=== PATIENT | female | born 1995 | race Caucasian/White ===

== ENCOUNTER 2020-09-13 20:23 | Emergency (ER) | payer MEDICARE, MEDICAID, SELFPAY ==
[2020-09-13 20:42] VITALS: BP 124/62; PULSE 92; RESP 16; TEMP 37.3; O2SAT 98; BMI 41.0
[2020-09-13 22:06] LABS: Glucose Urine UA NEG (NEG); Leukocyte Esterase Urine 2+ (NEG); Nitrite Urine NEG (NEG); Specific Gravity - Urine 1.025 (1.005-1.025); Urine Blood TRACE (NEG); Urine Ketones 15 MG/DL (NEG); Urine Protein NEG (NEG-TRACE)
--- NOTE | 2020-09-13 22:12 | ED_ITS ---
HPI - General Adult General Chief complaint: General Medical Stated complaint: VAGINAL PAIN Time Seen by Provider: 09/13/20 21:50 Source: patient Mode of arrival: ambulatory Limitations: no limitations History of Present Illness HPI narrative: patient comes in complaining of vaginal irritation for 4 days. Patient states approximately 5 days ago she had unprotected sex with a partner, he called her to let her know that he was having STD like symptoms and to get herself checked. Patient denies any vaginal discharge, no dysuria MD complaint: possible STD Related Data Previous Rx's Medication Instructions Recorded nitrofurantoin monohyd/m-cryst 100 mg PO Q12H 7 Days #14 cap 09/13/20 [Macrobid] Allergies Allergy/AdvReac Type Severity Reaction Status Date / Time lithium [LITHIUM] Allergy Intermediate HIVES Verified 09/13/20 20:42 nicotine [From NICODERM CQ] Allergy Unknown HIVES FROM Verified 09/13/20 20:42 THE PATCH Review of Systems Review of Systems: Constitutional : No Weight loss, No Fever, No Chills, No Night Sweats, No Fatigue, No Malaise ENT/Mouth : No Hearing loss, No Ear Pain, No Nasal Congestion, No Sinus Pain, No Hoarseness, No sore throat, No Rhinorrhea, No Swallowing Difficulty Eyes: No Eye Pain, No Swelling, No Redness, No Foreign Body, No Discharge, No Vision Changes Cardiovascular : No Chest Pain, No SOB, No Dyspnea on Exertion, No Orthopnea, No Edema, No Palpitations Respiratory : No Cough, No Sputum, No Wheezing, No Smoke Exposure, No Dyspnea Gastrointestinal : No Nausea, No Vomiting, No Diarrhea, No Constipation, No abdominal Pain, No Hematochezia, No Melena Genitourinary : no irregular bleeding, No Dysuria, No Urinary Frequency, No Hematuria, complaining of vaginal irritation/discomfort constantly, no vaginal discharge Musculoskeletal : No joint pain, No Myalgias, No Joint Swelling Skin : No Skin Lesions, No rash Neuro : No Weakness, No Numbness, No Paresthesias, No Loss of Consciousness, No Dizziness, No Headache Psych : No Anxiety/Panic, No Depression, No SI/HI/AH/VH, No Social Issues, Heme/Lymph: No Bruising, No Bleeding,No Lymphadenopathy Endocrine : No Polyuria, No Polydipsia, No Temperature Intolerance [facility] Past Medical History Medical History Anxiety Bipolar 1 disorder Depression Social History Social History Advance Directives: No Advance Directives Information Provided: Yes Physical Exam Vital Signs: Vital Signs: Last Vital Signs Temp 99.1 F 09/13/20 20:42 Pulse 92 09/13/20 20:42 Resp 16 09/13/20 20:42 BP 124/62 09/13/20 20:42 Pulse Ox 98 09/13/20 20:42 Body Mass Index 41.0 Appearance: Alert. Oriented X3. No acute distress. anxious, crying Eyes: Pupils equal, round and reactive to light. ENT: Pharynx normal. Neck: Normal inspection. Neck supple. No lymph nodes noted. No crepitus CVS: Normal heart rate and rhythm. Pulses normal. Normal S1 and S2 Respiratory: No respiratory distress. Breath sounds normal. No Wheezing. No rales Abdomen: Soft and nontender. No rigidity. No distention. good BS x4 Skin: Skin warm and dry. Normal skin color. Normal skin turgor. Extremities: No lower extremity edema. No lower extremity edema. No Lacerations. No Rash Neuro: Oriented X 3. No motor deficit. No sensory deficit. Moving all extermities. No slurred speech. Course Course Course Narrative: I discussed with the patient that she will be empirically treated for STDs, the urine will be sent for testing for gonorrhea and chlamydia. Patient instructed to follow-up with her primary care physician. Medical Decision Making Lab Data Labs: Lab Results 09/13/20 Range/Units 21:59 Urine Color YELLOW Urine Appearance HAZY Urine pH 7.0 (5.0-8.0) Ur Specific [place] 1.025 (1.005-1.025) Urine Protein NEG (NEG-TRACE) MG/DL Urine Glucose (UA) NEG (NEG) MG/DL Urine Ketones 15 (NEG) MG/DL Urine Blood TRACE (NEG) Urine Nitrite NEG (NEG) Ur Leukocyte Esterase 2+ H (NEG) Urine RBC 5-9 H (0) /HPF Urine WBC 50-75 H (0-4) /HPF Ur Squamous Epith Cells 1+ /LPF Urine Bacteria 2+ /LPF Urine Mucus 1+ /LPF Urine Test NEGATIVE (NEGATIVE) Discharge Plan Discharge Clinical Impression: Vaginal burning UTI (urinary tract infection) Qualifiers: Urinary tract infection type: site unspecified Hematuria presence: without hematuria Qualified Code(s): N39.0 - Urinary tract infection, site not specified Patient Disposition: Home, Self-Care Instructions: Sexually Transmitted Diseases (ED), Safe Sex Practices (ED) Additional Instructions: Please follow-up with your primary care physician tomorrow. If you have any worsening or new symptoms, please return to the emergency room or call 911 Prescriptions: New nitrofurantoin monohyd/m-cryst [Macrobid] 100 mg capsule 100 mg PO Q12H 7 Days Qty: 14 RF: 0
[2020-09-13 22:15] LABS: Appearance Urine HAZY; Color Urine YELLOW
[2020-09-13 22:16] LABS: Bacteria Urine 2+ /LPF; Mucus Urine 1+ /LPF; Squamous Epithelial Cell Urine 1+ /LPF; UPreg QC Valid YES; Urine Pregnancy NEGATIVE (NEGATIVE); WBC Urine 50-75 /HPF (0-4)
[2020-09-13] MEDS: Azithromycin 500 MG TABLET 1000 MG PO (22:40)
[2020-09-13] MEDS: Lidocaine HCl 1 % MPF 5 ML VIAL 0.9 ML INFILTRATI (22:41)
[2020-09-13] MEDS: cefTRIAXone sodium 250 MG VIAL IM (22:41)
[2020-09-14 01:47] LABS: CT PCR NOT DETECTED (Not Detect.); NG PCR DETECTED (Not Detect.)
== END 2020-09-13 22:58 | disposition home or self-care (01) ==
PROVIDERS: Emergency Provider Emergency Medicine
DX: N39.0 Urinary tract infection, site not specified (principal); Z20.2 Contact with and (suspected) exposure to infections with a predominantly sexual mode of transmission
CPT/HCPCS: 81001; 81025; 87086; 87491; 87591; 96372; 99284; J0696

== ENCOUNTER 2020-10-02 13:42 | Emergency (ER) | payer MEDICARE, MEDICAID, SELFPAY ==
[2020-10-02 13:53] VITALS: BP 119/53; PULSE 86; RESP 18; TEMP 37.1; O2SAT 97; BMI 43.0
[2020-10-02] MEDS: Lidocaine HCl 2 % MPF 5 ML VIAL INFILTRATI (14:08)
--- NOTE | 2020-10-02 14:16 | ED.SKABFB ---
HPI - Skin/Abscess/Foreign Bdy General Chief complaint: Skin/Abscess/Foreign Body Stated complaint: RED AREA ON LEFT ARM Time Seen by Provider: 10/02/20 13:56 Source: patient Mode of arrival: ambulatory Limitations: no limitations History of Present Illness HPI narrative: 25 y/o female presenting with painful lump in her left underarm for the last 3 days. She states it has been getting bigger and more painful. It is slightly red but has not had any drainage. She has history of an axillary abscess in the past that required drainage and took over 1 week to heal because she did not seek medical attention early. This time she wanted evaluation before it worsened. Denies fevers or chills. MD complaint: abscess/boil Onset (ago): day(s) (3) Tetanus up to date: yes Location: LUE Severity: moderate Quality: burning and aching Pain Consistency: constant Relieving factors: immobilization Exacerbating factors: palpation and movement Context: none Associated symptoms: denies other symptoms Treatments prior to arrival: none Related Data Previous Rx's Medication Instructions Recorded nitrofurantoin monohyd/m-cryst 100 mg PO Q12H 7 Days #14 cap 09/13/20 [Macrobid] Allergies Allergy/AdvReac Type Severity Reaction Status Date / Time lithium [LITHIUM] Allergy Intermediate HIVES Verified 09/13/20 20:42 nicotine [From NICODERM CQ] Allergy Unknown HIVES FROM Verified 09/13/20 20:42 THE PATCH Review of Systems Review of Systems: Constitutional: No Fever, No Chills Cardiovascular: No Chest Pain, No SOB Respiratory: No Cough, No Sputum Gastrointestinal: No Nausea, No Vomiting, No Diarrhea, No abdominal pain Musculoskeletal: No joint pain, No Myalgias Skin: + Skin Lesions, No rash Neuro: No Headache Heme/Lymph: No Lymphadenopathy PMFSH Past Medical History Attestation statement: The following information was validated with the patient. Medical History Anxiety Bipolar 1 disorder Depression Social History Social History Advance Directives: No Advance Directives Information Provided: No Physical Exam Vital Signs: Vital Signs: Last Vital Signs Temp 98.8 F 10/02/20 13:53 Pulse 86 10/02/20 13:53 Resp 18 10/02/20 13:53 BP 119/53 L 10/02/20 13:53 Pulse Ox 97 10/02/20 13:53 Body Mass Index 43.0 Appearance: Alert. Oriented X3. No acute distress. HEENT: normal inspection Respiratory: No respiratory distress. Skin: Skin warm and dry. Normal skin color. Normal skin turgor. No rashes. Extremities: left axillary area with 3 cm with tender area with fluctuation, mild erythema. Neuro: Oriented X 3. Course Course Course Narrative: 25. y/o female here with early axially abscess, no srrounding erythema. I&D performed. No hx DM. No role for abx at this time. Stable for d/c. Procedures Abscess I/D Site: lower extremity Side (if applicable): left Local Anesthetic: lidocaine 2% Technique: incised with blade Amount of fluid expressed (mL): 3 Sent for culture/gram staining?: No Irrigation: Yes Packing used?: none Complications: pain MDM - Skin/Abscess/Foreign Bdy Differential Diagnosis Differential diagnosis: Likely abscess of skin or subcutaneous tissue, urticaria, allergic reaction to drug, cellulitis, insect bites and contact dermatitis Critical Care Time Critical Care Time Critical Care Time: No Discharge Plan Discharge Clinical Impression: Abscess of skin or subcutaneous tissue Qualifiers: Site of cutaneous abscess: extremity Site of cutaneous abscess of extremity: axilla Laterality: left Qualified Code(s): L02.412 - Cutaneous abscess of left axilla Patient Disposition: Home, Self-Care Instructions: Abscess Incision and Drainage (DC) Additional Instructions: Use warm compresses to the area several times per day for the next 48 hours. Monitor for signs of infection including redness, warmth, worsening pain or increased drainage. Do not shave your underarm until your symptoms are completely resolved. Follow up with your doctor this week. Prescriptions: No Action nitrofurantoin monohyd/m-cryst [Macrobid] 100 mg capsule 100 mg PO Q12H 7 Days Qty: 14 RF: 0 Stand Alone Forms: Work/School Release
== END 2020-10-02 14:30 | disposition home or self-care (01) ==
PROVIDERS: Emergency Provider Internal Medicine
DX: L02.412 Cutaneous abscess of left axilla (principal); Z79.899 Other long term (current) drug therapy
CPT/HCPCS: 10060; 99283; 99284

== ENCOUNTER 2020-10-15 23:58 | Emergency (ER) | payer MEDICARE, MEDICAID, SELFPAY ==
[2020-10-15 23:59] VITALS: BP 93/59; PULSE 95; RESP 28; TEMP 37.2; O2SAT 100; BMI 41.0
--- NOTE | 2020-10-16 00:12 | ED.ABDPAIN ---
HPI - Abdominal Pain General Chief Complaint: Abdominal Pain Stated Complaint: RIGHT ABD PAIN Time Seen by Provider: 10/16/20 00:12 Source: patient Mode of arrival: ambulatory Limitations: no limitations History of Present Illness HPI narrative: This is a 25-year-old female who presents with 7 days constant, nonradiating, sharp pain at the right side of the abdomen without associated fevers, chills, diarrhea, but patient does complain of constipation and otherwise denies any urinary pain/burning/frequency. She has the Nexplanon in place and has not had a menstrual period in over 3 years. Related Data Previous Rx's Medication Instructions Recorded nitrofurantoin monohyd/m-cryst 100 mg PO Q12H 7 Days #14 cap 09/13/20 [Macrobid] Allergies Allergy/AdvReac Type Severity Reaction Status Date / Time lithium [LITHIUM] Allergy Intermediate HIVES Verified 09/13/20 20:42 nicotine [From NICODERM CQ] Allergy Unknown HIVES FROM Verified 09/13/20 20:42 THE PATCH Review of Systems Review of Systems Pertinent positives and negatives as stated in HPI and 10 point review systems is otherwise negative. Physical Exam Vital Signs: Vital Signs: Last Vital Signs Temp 98.9 F 10/15/20 23:59 Pulse 95 10/15/20 23:59 Resp 16 10/16/20 03:59 BP 93/59 L 10/15/20 23:59 Pulse Ox 100 10/15/20 23:59 Body Mass Index 41.0 VITAL SIGNS: Reviewed. GENERAL: Well developed, well nourished, in no acute distress. HEAD: Normocephalic/atraumatic, EYES: PERRLA, EOMI intact without pain, no nystagmus/pallor/icterus noted EARS: Ext canals without abnormality, TMs non-bulging and non-erythematous NOSE: Nares patent bilateral OROPHARYNX: no oral lesions noted, posterior pharynx clear and non-erythematous without noted tonsillar enlargement/erythema/exudates NECK: Supple, no adenopathy LUNGS: Normal breath sounds. No adventitious sounds or accessory muscle use. SpO2<100> CARDIOVASCULAR: Regular rate and rhythm without noted murmurs, no JVD or lower extremity edema. ABDOMEN: Soft, mild tenderness on palpation of the right abdomen without rebound, non-distended with bowel sounds. No rigidity. No guarding. No palpable masses or hernias noted MUSCULOSKELETAL: No tenderness, deformities, or effusions noted on gross inspection. EXTREMITIES: No cyanosis, clubbing or edema. SKIN: Inspection of the skin reveals no rashes, ulcerations, jaundice, pallor, or petechiae. NEUROLOGIC: Alert and oriented x 4. Strength and sensation to light touch were grossly intact x 4. Course Course Course Narrative: This is a 25-year-old female with history and clinical presentation most suggestive of possible constipation and on review all investigations there is no evidence of an acute infectious process, anemia, , gallbladder disease. KUB does indicate or evidence of mild constipation without supportive evidence for any SBO. All results and findings were discussed with the patient at bedside to include treatment regimen and she was recommended to follow-up with her primary care provider. MDM - Abdominal Pain Lab Data Result diagrams: 10/16/20 01:15 10/16/20 01:15 Labs: Lab Results 10/16/20 10/16/20 Range/Units 01:15 01:15 WBC 10.5 (4.8-10.8) X10*3/uL RBC 5.02 (4.20-5.50) X10*6/uL Hgb 12.9 (12.0-16.0) g/dl Hct 39.4 (37-47) % MCV 78.5 L (80-98) fL MCH 25.7 L (27.0-33.0) pg MCHC 32.7 (31.0-35.0) g/dl RDW 13.2 (11.0-16.0) % Plt Count 234 (160-400) X10*3/uL MPV 10.8 (9.4-12.3) fL Immature Gran % (Auto) 0.3 (0.0-0.4) % Neut % (Auto) 45.6 (45-73) % Lymph % (Auto) 45.8 H (20-40) % Dawson % (Auto) 7.4 (2-11) % Eos % (Auto) 0.6 (0-4) % Baso % (Auto) 0.3 (0-2) % Lymph # (Auto) 4.8 (1.2-4.9) X10*3/uL Dawson # (Auto) 0.8 (0.1-1.2) X10*3/uL Eos # (Auto) 0.1 (0.0-0.4) X10*3/uL Baso # (Auto) 0.0 (0.0-0.2) X10*3/uL Abs Immat Gran (auto) 0.03 (0.00-0.03) X10*3/uL Absolute Neuts (auto) 4.8 (2.0-8.3) X10*3/uL Absolute Nucleated RBC 0.000 (0.0-0.012) X10*3/uL Nucleated RBC % (auto) 0.0 (0.0-0.2) /100WBC Sodium 139 (135-145) mmol/L Potassium 4.0 (3.3-5.1) mmol/l Chloride 107 (96-108) mmol/L Carbon Dioxide 23 (22-29) mmol/L Anion Gap 13 (12-20) BUN 12 (9-16) mg/dL Creatinine 0.65 (0.5-1.4) mg/dL Estim Creat Clear Calc 136.6 Estimated GFR > 60 Random Glucose 128 H (60-115) mg/dL Calcium 8.8 (8.4-10.2) mg/dL Total Bilirubin 0.3 (0.0-1.0) mg/dL AST 17 (5-31) U/L ALT 18 (0-31) U/L Alkaline Phosphatase 100 (39-117) U/L Total Protein 6.8 (6.5-8.0) g/dL Albumin 3.9 (3.5-5.0) g/dL Beta HCG, Quant < 2 mIU/mL Discharge Plan Discharge Clinical Impression: Constipation Qualifiers: Constipation type: unspecified constipation type Qualified Code(s): K59.00 - Constipation, unspecified Patient Disposition: Home, Self-Care Instructions: Constipation (ED), High Fiber Diet (ED) Additional Instructions: 1. Resume all home medications as prescribed. 2. Increase fluid hydration especially with water as this will reduce constipation affects. 3. Begin using MiraLax once daily as directed on the outside packaging, but discontinue use if you began developing diarrhea. 4. Follow-up with your primary care provider for re-evaluation and further outpatient management of your symptoms. The patient and/or family acknowledge understanding of results (as applicable), diagnosis, treatment plan, need for follow up, and symptoms that should prompt a return to the emergency room. Prescriptions: No Action nitrofurantoin monohyd/m-cryst [Macrobid] 100 mg capsule 100 mg PO Q12H 7 Days Qty: 14 RF: 0 Referrals: Physician,Unknown [Primary Care Provider] - 2 days (Re-evaluation outpatient management) Discharge Date/Time: 10/16/20 04:05 ON LICENSE OF [facility] Past Medical History Source: nursing notes reviewed Medical History Anxiety Bipolar 1 disorder Depression Social History Social History Smoked in Last 30 Days: Yes Use of substances other than those prescribed or required for medical reasons: No Advance Directives: No Advance Directives Information Provided: No
[2020-10-16 01:19] LABS: MANUAL DIFF FLAG NO
[2020-10-16 01:21] LABS: Basophils Percent Auto 0.3 % (0-2); Eosinophils Absolute Auto 0.1 X10*3/uL (0.0-0.4); Eosinophils Percent Auto 0.6 % (0-4); Hematocrit 39.4 % (37-47); Hemoglobin 12.9 g/dl (12.0-16.0); Imm Gran Abs Auto 0.03 X10*3/uL (0.00-0.03); Imm Gran Pct Auto 0.3 % (0.0-0.4); Lymphocytes Absolute Auto 4.8 X10*3/uL (1.2-4.9); Lymphocytes Percent Auto 45.8 % (20-40); Mean Corpuscular HGB Conc 32.7 g/dl (31.0-35.0); Mean Corpuscular Hemoglobin 25.7 pg (27.0-33.0); Mean Corpuscular Volume 78.5 fL (80-98); Mean Platelet Volume 10.8 fL (9.4-12.3); Monocytes Absolute Auto 0.8 X10*3/uL (0.1-1.2); Monocytes Percent Auto 7.4 % (2-11); Neutrophils Absolute Auto 4.8 X10*3/uL (2.0-8.3); Neutrophils Percent Auto 45.6 % (45-73); Platelet Count 234 X10*3/uL (160-400); Red Blood Count 5.02 X10*6/uL (4.20-5.50); Red Cell Distribution Width 13.2 % (11.0-16.0); White Blood Count 10.5 X10*3/uL (4.8-10.8)
[2020-10-16 01:48] LABS: Alanine Aminotransferase 18 U/L (0-31); Albumin Level 3.9 g/dL (3.5-5.0); Alkaline Phosphatase 100 U/L (39-117); Anion Gap 13 (12-20); Aspartate Amino Transferase 17 U/L (5-31); Bilirubin Total 0.3 mg/dL (0.0-1.0); Blood Urea Nitrogen 12 mg/dL (9-16); Calcium 8.8 mg/dL (8.4-10.2); Carbon Dioxide 23 mmol/L (22-29); Chloride 107 mmol/L (96-108); Creatinine Clr Calc Pharmacy 136.6; Estimated Glomerular Filt Rate > 60; Glucose Random 128 mg/dL (60-115); Sodium 139 mmol/L (135-145); Total Protein 6.8 g/dL (6.5-8.0)
[2020-10-16 02:20] LABS: HCG Quantitative < 2 mIU/mL
--- NOTE | 2020-10-16 02:25 | XR_ITS ---
EXAMINATION: XR ABDOMEN KUB CLINICAL INDICATION: Constipation COMPARISON: 07/25/2011 TECHNIQUE: 2 views of the abdomen. FINDINGS: The bowel gas pattern is normal with no evidence of ileus or obstruction. Mild stool present throughout the colon. No unusual soft tissue calcifications are noted. The bones are unremarkable. XR/XR KUB IMPRESSION: Mild constipation. No evidence of obstruction.
--- NOTE | 2020-10-16 02:38 | PC.NURSE ---
PROVIDER AWARE PT COULD NOT VOID. TEST DETERMINE BY BLOOD WORK. KUB PENDING.
[2020-10-16 03:59] VITALS: RESP 16
--- NOTE | 2020-10-16 03:59 | PC.NURSE ---
Provider in to discuss plan of care and discharge. pt requesting to go home before kub result are back.
== END 2020-10-16 04:05 | disposition home or self-care (01) ==
PROVIDERS: Emergency Provider Student in an Organized Health Care Education/Training Program
DX: K59.00 Constipation, unspecified (principal); R10.9 Unspecified abdominal pain
CPT/HCPCS: 36415; 74018; 80053; 84702; 85025; 99283; 99284

== ENCOUNTER 2021-05-16 18:12 | Emergency (ER) | payer MEDICARE, MEDICAID, SELFPAY ==
--- NOTE | 2021-05-16 20:11 | PC.NURSE ---
CALLED TO BE BROUGHT TO TREATMENT AREA, NOT IN [facility]
--- NOTE | 2021-05-16 20:39 | PC.NURSE ---
PT CALLED AGAIN, NO RESPONSE.
== END 2021-05-16 21:35 | disposition left against medical advice (07) ==
PROVIDERS: Emergency Provider Emergency Medicine
DX: M54.9 Dorsalgia, unspecified (principal)

== ENCOUNTER 2021-05-16 23:53 | Emergency (ER) | payer OTHER, SELFPAY ==
[2021-05-17 01:32] VITALS: BP 121/80; PULSE 101; RESP 18; TEMP 35.9; O2SAT 97; BMI 41.0
== END 2021-05-17 02:20 | disposition left against medical advice (07) ==
LOC: HO.ED 05-17 02:20
PROVIDERS: Emergency Provider Emergency Medicine
DX: M54.5 Low back pain (principal); R10.9 Unspecified abdominal pain
CPT/HCPCS: 99282

== ENCOUNTER 2021-07-03 16:15 | Emergency (ER) | payer OTHER, SELFPAY ==
[2021-07-03 16:35] VITALS: BP 122/62; BP 135/56; PULSE 95; PULSE 97; RESP 16; TEMP 36.6; O2SAT 95; O2SAT 97; BMI 39.6
--- NOTE | 2021-07-03 16:55 | ED_ITS ---
HPI - Dizziness General Chief Complaint: Dizziness Stated Complaint: dizzy Time Seen by Provider: 07/03/21 16:53 Source: patient Mode of arrival: ambulatory Limitations: no limitations History of Present Illness HPI Narrative: 26-year-old female with bipolar disorder morbid obesity presents emergency department complaining of dizziness. Patient states that she woke up this morning feeling like she might pass out and the room is spinning. Patient states she never had this problem the past she denies cough or fever. She is on Depakote she denies any changes in medications or doses she also on few other antipsychotics. Patient denies any issues with eating she states she has never had this problem in the past. I note she feels stable as he sitting down to have any feeling of passing out and she states the room is not spinning. Related Data Previous Rx's Medication Instructions Recorded nitrofurantoin 100 mg PO Q12H 7 Days #14 cap 09/13/20 monohydrate/macrocrystals 100 mg capsule (Macrobid) Allergies Allergy/AdvReac Type Severity Reaction Status Date / Time lithium [LITHIUM] Allergy Intermediate HIVES Verified 05/17/21 01:34 nicotine [From NICODERM ] Allergy Unknown HIVES FROM Verified 05/17/21 01:34 THE PATCH Review of Systems Review of Systems: Review of systems: Neuro: Dizziness vertigo lightheaded General: Patient denies any fever chills recent illness or falls Musculoskeletal: Denies back pain or body aches or other injuries HEENT: denies headache, runny nose, ear pain Respiratory: denies shortness of breath, cough Cardiovascular: no chest pain or palpitations : denies dysuria, frequency Abdomen: no nausea vomiting denies abdominal pain Extremities: no swelling, no pain Skin: no diaphoresis Yes all other systems are reviewed and are negative [facility] Past Medical History Medical History Anxiety Bipolar 1 disorder Depression Social History Social History Advance Directives: No Advance Directives Information Provided: No Physical Exam Vital Signs: Vital Signs: Last Vital Signs Temp 97.9 F 07/03/21 16:35 Pulse 95 07/03/21 16:35 Resp 16 07/03/21 16:35 BP 122/62 07/03/21 16:35 Pulse Ox 97 07/03/21 16:35 Body Mass Index 39.6 Neurological exam: CN II- XII tested. Patient is alert and oriented to person place and time. Patient has no dysphagia or dysarthia, denies good vision in all four vision gardiner no nystagmus on exam, good strength to upper and lower extre mities with normal reflexes to brachioradialis, wrist, patella and achilles. Negative romberg, good finger to nose and heel to robertson. General: Well-appearing well-nourished in no signs of distress HEENT: Normocephalic atraumatic Neck: No signs of JVD, no masses no tenderness or lymphadenopathy Cardiovascular: Regular rate and rhythm Respiratory: Clear to auscultation bilaterally Abdomen: Soft nontender no masses Extremities: Normal pedal pulses no signs of edema Skin: Dry warm no rashes Back: No tenderness full ROM MDM - Dizziness MDM Narrative Medical decision making narrative: Patient with dizziness I will check labs as patient is on multiple anti-psychotic a pneumonia level since patient is on Depakote will give patient fluids and reassess. 1712 Patient looks well she could not handle the noise in the ED. She eloped from the ED. Discharge Plan Discharge Clinical Impression: Dizziness Patient Disposition: Left Against Medical Advice Prescriptions: No Action nitrofurantoin monohyd/m-cryst [Macrobid] 100 mg capsule 100 mg PO Q12H 7 Days Qty: 14 RF: 0 Discharge Date/Time: 07/03/21 17:12
--- NOTE | 2021-07-03 17:10 | PC.NURSE ---
THIS RN APPROACHED PT TO DISCUSS PLAN OF CARE AT WHICH TIME PT STATED SHE NEEDED TO LEAVE IMMEDIATELY THE DIN OF THE ED WAS TRIGGERING HER ANXIETY. IV REMOVED AND PT AMBULATED OUT OF ED WITH EVEN STEADY GAIT.
== END 2021-07-03 17:12 | disposition left against medical advice (07) ==
PROVIDERS: Emergency Provider Student in an Organized Health Care Education/Training Program
DX: R42 Dizziness and giddiness (principal); Z79.899 Other long term (current) drug therapy
CPT/HCPCS: 96374; 99282; 99284

== ENCOUNTER 2021-07-28 14:45 | Emergency (ER) | payer MEDICARE, SELFPAY ==
[2021-07-28 16:07] VITALS: BP 118/63; PULSE 95; RESP 18; TEMP 36.9; O2SAT 99; BMI 37.2
== END 2021-07-28 16:45 | disposition left against medical advice (07) ==
PROVIDERS: Emergency Provider Emergency Medicine
DX: Z20.2 Contact with and (suspected) exposure to infections with a predominantly sexual mode of transmission (principal)
CPT/HCPCS: 99281; 99282

== ENCOUNTER 2021-11-27 03:04 | Emergency (ER) | payer OTHER, SELFPAY ==
--- NOTE | ~2021-11-27 | XR_ITS ---
EXAMINATION: XR CHEST CLINICAL INFORMATION: Shortness of breath COMPARISON: None TECHNIQUE: Frontal view of the chest was obtained. FINDINGS: The lungs are well expanded. There is no focal consolidation, edema, or effusion. No pneumothorax. The cardiomediastinal silhouette is within normal limits. No acute osseous abnormality. Surgical clips overlie the left apex. XR/XR chest 1V IMPRESSION: Clear lungs.
[2021-11-27 03:08] VITALS: BP 144/73; PULSE 82; RESP 20; TEMP 37; O2SAT 99; BMI 41.0
[2021-11-27 03:38] LABS: COVID-19 Test Negative (Negative); IDNOW Serial# 9DD0AD1C
[2021-11-27] MEDS: iohexoL 350 MG/ML 100 ML INFUS..BTL 85 ML IV (04:11)
--- NOTE | 2021-11-27 06:34 | ED.SOB ---
HPI - SOB/Dyspnea General Chief Complaint: Dyspnea Stated Complaint: difficulty breathing; continuously fainting Time Seen by Provider: 11/27/21 03:50 Source: patient Mode of arrival: ambulatory Limitations: no limitations History of Present Illness HPI Narrative: 3 days of shortness of breath, no fever, no cough, some ear pain, rhinorrhea. Patient suffers from anxiety, patient feeling isolated from COVID. Denies suicidal or homicidal ideation. Patient denies . MD elicited complaint: shortness of breath Pertinent past history: other (anxiety) Onset (ago): week(s) Timing: intermittent Severity: mild Exacerbating factors: nothing Relieving factors: cool air Associated symptoms: denies other symptoms Related Data Previous Rx's Medication Instructions Recorded mometasone 50 mcg/actuation nasal 2 spray INTRANASAL DAILY #17 g 11/27/21 spray (Nasonex) Allergies Allergy/AdvReac Type Severity Reaction Status Date / Time No Known Allergies Allergy Verified 11/27/21 03:14 Review of Systems Constitutional: Constitutional: Reports no additional constitutional complaints Eyes: Eyes: Reports no additional eye complaints ENT: Denies dizziness Cardiovascular: Cardiovascular: Reports no additional cardiovascular complaints Respiratory: Respiratory: Reports as per HPI Gastrointestinal: Gastrointestinal: Reports no additional gastrointestinal complaints Genitourinary: Genitourinary: Reports no additional female genitourinary complaints Musculoskeletal: Musculoskeletal: Reports no additional musculoskeletal complaints Integumentary/Breasts: Skin/Breast: Denies rash Neurologic: Reports system reviewed and no additional complaints, except as documented, Denies dizziness and Denies Sensory deficit (Neuro) Psychiatric: Psychiatric: Denies anxiety [facility] Past Medical History Medical History Fibromyalgia Mental health disorder Social History Social History Advance Directives: No Patient : No Physical Exam Vital Signs: Vital Signs: Last Vital Signs Temp 98.6 F 11/27/21 03:08 Pulse 82 11/27/21 03:08 Resp 20 11/27/21 03:08 BP 144/73 H 11/27/21 03:08 Pulse Ox 99 11/27/21 03:08 BMI result Body Mass Index 41.0 Const: General: healthy appearing Nutritional Appearance: average body habitus Orientation/consciousness: oriented to person and patient oriented x3 Limitations: no limitations HENMT: Head: Yes normal to inspection Ears: external ears normal General nose exam: Normal external nose present Mouth: Normal oral and palatal mucosa present and oropharynx normal Throat: Yes posterior oropharynx normal Eyes: General: appearance normal, both eyes and all related structures Neck: Other: supple Neck: Yes normal visual inspection Chest: Chest palpation & inspection: normal inspection of the chest Resp: Auscultation: clear to auscultation bilaterally Cardio: Jugular venous distension: no JVD Rate: regular rate Rhythm: regular rhythm Heart sounds: S1 normal heart sound present and S2 normal heart sound present GI: Inspection: Yes normal to inspection Palpation (GI): Soft to palpation, nontender and No hepatosplenomegaly present Auscultation: normal bowel sounds : General: Yes no CVA tenderness Back/Spine/Pelvis: Back: no CVA tenderness Skin: General skin exam: no rashes or lesions noted Neuro: General: oriented to person and patient oriented x3 Cranial nerves: Yes CN's II-XII intact bilaterally Motor exam (neuro): 5/5 motor strength present throughout Sensory Exam: No Sensory deficit (Neuro) Extrem: General: Yes normal to inspection Psych: Appearance: grossly normal Course Reevaluation(s) Reevaluation #1: Patient with no physical findings consistent with shortness of breath, her lungs and vitals are clear. She states that she feels isolated but is not suicidal or homicidal. Will dc home on nasonex for her sinus congestion. Time: 06:43 MDM - SOB/Dyspnea Lab Data Labs: Lab Results 11/27/21 Range/Units 03:15 COVID-19 (SUPA) Negative (Negative) COVID-19 Clin Com See Note Imaging Data Chest x-ray: Radiologist's impression: FINDINGS: The lungs are well expanded. There is no focal consolidation, edema, or effusion. No pneumothorax. The cardiomediastinal silhouette is within normal limits. No acute osseous abnormality. Surgical clips overlie the left apex. XR/XR chest 1V IMPRESSION: Clear lungs. ? Discharge Plan Discharge Clinical Impression: Shortness of breath Sinusitis Qualifiers: Sinusitis location: unspecified location Chronicity: subacute Qualified Code(s): J01.90 - Acute sinusitis, unspecified Patient Disposition: Home, Self-Care Instructions: Sinusitis (ED) Prescriptions: New mometasone [Nasonex] 50 mcg/actuation spray,non-aerosol 2 spray intranasal DAILY Qty: 17 RF: 0
== END 2021-11-27 07:13 | disposition home or self-care (01) ==
PROVIDERS: Emergency Provider Emergency Medicine
DX: J01.90 Acute sinusitis, unspecified (principal); Z20.822 Contact with and (suspected) exposure to COVID-19; F41.9 Anxiety disorder, unspecified
CPT/HCPCS: 71045; 87635; 99283; Q9967

== ENCOUNTER 2022-01-27 16:28 | Emergency (ER) | payer OTHER, SELFPAY ==
[2022-01-27 16:45] VITALS: BP 109/55; PULSE 106; RESP 16; TEMP 36.7; O2SAT 98; BMI 42.0
--- NOTE | 2022-01-27 17:27 | ECG_ITS ---
Test Reason : DIZZINESS Blood Pressure : / mmHG Vent. Rate : 080 BPM Atrial Rate : 080 BPM P-R Int : 144 ms QRS Dur : 090 ms QT Int : 396 ms P-R-T Axes : 027 062 029 degrees QTc Int : 456 ms Normal sinus rhythm Normal ECG When compared with ECG of 01-DEC-2019 14:48, No significant change was found Referred By: Katelyn Aranda Electronically Signed By:Koffi Wan
--- NOTE | 2022-01-27 17:28 | ED_ITS ---
HPI - General Adult General Chief complaint: Dizziness Stated complaint: very dehydrated/ not feeling well after medication Source: patient Mode of arrival: ambulatory Limitations: no limitations History of Present Illness HPI narrative: 26-year-old female presents with dizziness and weakness with visual hallucinat ions since the Strattera dose increased. Onset (ago): day(s) Radiation: non-radiation Severity: moderate Relieving factors: none Exacerbating factors: medication Associated symptoms: denies other symptoms Treatments prior to arrival: none Related Data Home Medications Medication Instructions Recorded Confirmed atomoxetine 80 mg capsule 1 cap PO QAM 01/27/22 01/27/22 cariprazine 1.5 mg capsule 1 cap PO QAM 01/27/22 01/27/22 (Vraylar) cariprazine 6 mg capsule (Vraylar) 1 cap PO QAM 01/27/22 01/27/22 divalproex 250 mg tablet,extended 1,500 mg PO QAM 01/27/22 01/27/22 release 24 hr lorazepam 0.5 mg tablet 1 tab PO DAILY PRN 01/27/22 01/27/22 Previous Rx's Medication Instructions Recorded mometasone 50 mcg/actuation nasal 2 spray INTRANASAL DAILY #17 g 11/27/21 spray (Nasonex) Allergies Allergy/AdvReac Type Severity Reaction Status Date / Time lithium [LITHIUM] Allergy Intermediate HIVES Verified 01/27/22 16:44 nicotine [From NICODERM CQ] Allergy Unknown HIVES FROM Verified 12/14/21 14:42 THE PATCH Review of Systems Review of Systems: Constitutional: No Fever, No Chills ENT/Mouth: No Ear Pain, No Nasal Congestion, No sore throat Eyes: No Eye Pain, No Swelling, No Redness Cardiovascular: No Chest Pain, No SOB Respiratory: No Cough, No Sputum, No Dyspnea Gastrointestinal: No Nausea, No Vomiting, No Diarrhea, No Hematochezia, No Melena Genitourinary: No Dysuria, No Urinary Frequency, No Hematuria Musculoskeletal: No Myalgias Skin: No Skin Lesions, No rash Neuro: No Weakness, No Numbness, No Paresthesias, No Dizziness, No Headache Psych: positive Anxiety, positive Depression, positive SI/HI Heme/Lymph: No Lymphadenopathy Endocrine: No Polyuria, No Polydipsia Yes all other systems are reviewed and are negative [facility] Past Medical History Attestation statement: The following information was validated with the patient. Source: old records reviewed Medical History Anxiety Bipolar 1 disorder Depression Fibromyalgia Mental health disorder Social History Social History Alcohol intake: current Alcohol intake frequency: a few times a month Patient Tobacco Use Status: Current everyday Tobacco user Use of substances other than those prescribed or required for medical reasons: Yes Substance Use Type: Marijuana Advance Directives: No Advance Directives Information Provided: No Physical Exam ED Vital Signs: Vital Signs - 24 hr 01/27/22 16:45 01/27/22 17:50 Temperature 98.0 F 98.4 F Pulse Rate 106 H 82 Respiratory Rate 16 18 Blood Pressure 109/55 L 118/75 Pulse Oximetry 98 95 BMI result Body Mass Index 42.0 Appearance: Alert. Oriented X3. Moderate emotional distress. Anxious. Speech Appears pressured. Eyes: Pupils equal, round and reactive to light. No nystagmus. ENT: Pharynx normal. Moist mucous membranes. Neck: Normal inspection. Neck supple. CVS: Tachycardic heart rate and rhythm. Apical pulse equal pulses to extremities. Respiratory: No respiratory distress. Breath sounds normal. Abdomen: Soft and nontender. Skin: Skin warm and dry. Normal skin color. Normal skin turgor. Extremities: No lower extremity edema. Hand tremors. Brisk capillary refill equal pulses to all extremities. Neuro: No motor deficit. No sensory deficit. Cranial nerves 2-12 intact. Course Course Course Narrative: 26-year-old female presents with multiple complaints. She feels like these complaints are medication related. She is not suicidal or homicidal but is describing visual hallucinations, tremors, and anxiety. Patient is on Strattera which has increased, Vraylar, amantadine and Depakote. 19:00 lab values noted to have abnormally low neutrophil levels. Patient also complains of symptoms of hallucinations, tremors, and anxiety. Could possibly be psych med related. 19:20 discussion Farhana Mendoza NP, based on patient's lab values and her prescriptions for Vraylar, amantadine and Depakote will order a psychiatric consult for medication consultation for tomorrow morning. 19:50 critical lab value of Depakote at 114. 21:30 discussion with patient's mother per patient's permission. I did update patient's mother that patient would be staying overnight for psychiatry consult in the morning. 23:00 Physician observation started at this time. Consultations Consultation #1: Kelly Time: 19:00 Medical Decision Making Differential Diagnosis Differential Diagnosis: Adverse medication reaction, anxiety Medical Records Medical records reviewed: Yes I reviewed the patient's medical records. Lab Data Lab results reviewed: Yes I reviewed the patient's lab results. Result diagrams: 01/27/22 18:27 01/27/22 18:27 Labs: Lab Results 01/27/22 01/27/22 01/27/22 Range/Units 18:01 18:02 18:27 WBC 7.4 (4.8-10.8) X10*3/uL RBC 4.97 (4.20-5.50) X10*6/uL Hgb 12.6 (12.0-16.0) g/dl Hct 38.1 (37.0-47.0) % MCV 76.7 L (80.0-98.0) fL MCH 25.4 L (27.0-33.0) pg MCHC 33.1 (31.0-35.0) g/dl RDW 13.5 (11.0-16.0) % Plt Count 148 L (160-400) X10*3/uL MPV 10.3 (9.4-12.3) fL Immature Gran % (Auto) Cancelled Neut % (Auto) Cancelled Lymph % (Auto) Cancelled Churchill % (Auto) Cancelled Eos % (Auto) Cancelled Baso % (Auto) Cancelled Lymph # (Auto) Cancelled Churchill # (Auto) Cancelled Eos # (Auto) Cancelled Baso # (Auto) Cancelled Abs Immat Gran (auto) Cancelled Absolute Neuts (auto) Cancelled Absolute Nucleated RBC 0.000 (0.0-0.012) X10*3/uL Nucleated RBC % (auto) 0.0 (0.0-0.2) /100WBC Neutrophils % (Manual) 9 L (45-73) % Band Neutrophils % 7 H (3-5) % Lymphocytes % (Manual) 57 H (20-40) % Atypical Lymphs % (Man) 19 H (0-6) % Monocytes % (Manual) 8 (2-11) % Abs Neuts (Manual) 1.2 L (2.0-8.3) X10*3/uL Lymphocytes # (Manual) 4.2 (1.2-4.9) X10*3/uL Atyp Lymphs # (Manual) 1.4 x10*3/uL Monocytes # (Manual) 0.6 (0.1-1.2) X10*3/uL Platelet Estimate NORMAL (NORMAL) Plt Morphology Comment NORMAL RBC Morphology NOTED Hypochromasia 1+ (5-14) /OIF Microcytosis 1+ (5-14) /OIF Sodium (135-145) mmol/L Potassium (3.3-5.1) mmol/L Chloride (96-108) mmol/L Carbon Dioxide (22-29) mmol/L Anion Gap (12-20) BUN (9-16) mg/dL Creatinine (0.5-1.4) mg/dL Estim Creat Clear Calc Estimated GFR Random Glucose (60-115) mg/dL Calcium (8.4-10.2) mg/dL Total Bilirubin (0.0-1.0) mg/dL Direct Bilirubin (0.0-0.5) mg/dL AST (5-31) U/L ALT (0-31) U/L Alkaline Phosphatase (39-117) U/L Ammonia (13-55) umol/L C-Reactive Protein (< or = 0.50) mg/dL Total Protein (6.5-8.0) g/dL Albumin (3.5-5.0) g/dL Lipase (8-78) U/L Urine Color DK YELLOW Urine Appearance CLEAR Urine pH 6.0 (5.0-8.0) Ur Specific Jackson >= 1.030 H (1.005-1.025) Urine Protein 1+ H (NEG-TRACE) MG/DL Urine Glucose (UA) NEG (NEG) MG/DL Urine Ketones 15 (NEG) MG/DL Urine Blood NEG (NEG) Urine Nitrite NEG (NEG) Ur Leukocyte Esterase NEG (NEG) Urine RBC 0-2 (0) /HPF Urine WBC 0-2 (0-4) /HPF Ur Squamous Epith Cells TRACE /LPF Urine Bacteria 1+ /LPF Urine Mucus 1+ /LPF Valproic Acid (50.0-100.0) mcg/mL Monoscreen (Negative) Influenza Type A (PCR) NEGATIVE (Negative) Influenza Type B (PCR) NEGATIVE (Negative) RSV RNA Qual (PCR) NEGATIVE (Negative) SARS-CoV-2 RNA (RT-PCR) NEGATIVE (Negative) 01/27/22 01/27/22 01/27/22 Range/Units 18:27 18:27 18:27 WBC (4.8-10.8) X10*3/uL RBC (4.20-5.50) X10*6/uL Hgb (12.0-16.0) g/dl Hct (37.0-47.0) % MCV (80.0-98.0) fL MCH (27.0-33.0) pg MCHC (31.0-35.0) g/dl RDW (11.0-16.0) % Plt Count (160-400) X10*3/uL MPV (9.4-12.3) fL Immature Gran % (Auto) Neut % (Auto) Lymph % (Auto) Churchill % (Auto) Eos % (Auto) Baso % (Auto) Lymph # (Auto) Churchill # (Auto) Eos # (Auto) Baso # (Auto) Abs Immat Gran (auto) Absolute Neuts (auto) Absolute Nucleated RBC (0.0-0.012) X10*3/uL Nucleated RBC % (auto) (0.0-0.2) /100WBC Neutrophils % (Manual) (45-73) % Band Neutrophils % (3-5) % Lymphocytes % (Manual) (20-40) % Atypical Lymphs % (Man) (0-6) % Monocytes % (Manual) (2-11) % Abs Neuts (Manual) (2.0-8.3) X10*3/uL Lymphocytes # (Manual) (1.2-4.9) X10*3/uL Atyp Lymphs # (Manual) x10*3/uL Monocytes # (Manual) (0.1-1.2) X10*3/uL Platelet Estimate (NORMAL) Plt Morphology Comment RBC Morphology Hypochromasia /OIF Microcytosis /OIF Sodium 136 (135-145) mmol/L Potassium 4.0 (3.3-5.1) mmol/L Chloride 105 (96-108) mmol/L Carbon Dioxide 20 L (22-29) mmol/L Anion Gap 15 (12-20) BUN 9 (9-16) mg/dL Creatinine 0.65 (0.5-1.4) mg/dL Estim Creat Clear Calc 137.3 Estimated GFR > 60 Random Glucose 92 (60-115) mg/dL Calcium 8.6 (8.4-10.2) mg/dL Total Bilirubin 0.5 (0.0-1.0) mg/dL Direct Bilirubin < 0.2 (0.0-0.5) mg/dL AST 126 H (5-31) U/L ALT 121 H (0-31) U/L Alkaline Phosphatase 106 (39-117) U/L Ammonia (13-55) umol/L C-Reactive Protein 2.84 H (< or = 0.50) mg/dL Total Protein 6.7 (6.5-8.0) g/dL Albumin 3.3 L (3.5-5.0) g/dL Lipase 15 (8-78) U/L Urine Color Urine Appearance Urine pH (5.0-8.0) Ur Specific Jackson (1.005-1.025) Urine Protein (NEG-TRACE) MG/DL Urine Glucose (UA) (NEG) MG/DL Urine Ketones (NEG) MG/DL Urine Blood (NEG) Urine Nitrite (NEG) Ur Leukocyte Esterase (NEG) Urine RBC (0) /HPF Urine WBC (0-4) /HPF Ur Squamous Epith Cells /LPF Urine Bacteria /LPF Urine Mucus /LPF Valproic Acid 114.7 H* (50.0-100.0) mcg/mL Monoscreen Positive A (Negative) Influenza Type A (PCR) (Negative) Influenza Type B (PCR) (Negative) RSV RNA Qual (PCR) (Negative) SARS-CoV-2 RNA (RT-PCR) (Negative) 01/27/22 Range/Units 20:03 WBC (4.8-10.8) X10*3/uL RBC (4.20-5.50) X10*6/uL Hgb (12.0-16.0) g/dl Hct (37.0-47.0) % MCV (80.0-98.0) fL MCH (27.0-33.0) pg MCHC (31.0-35.0) g/dl RDW (11.0-16.0) % Plt Count (160-400) X10*3/uL MPV (9.4-12.3) fL Immature Gran % (Auto) Neut % (Auto) Lymph % (Auto) Churchill % (Auto) Eos % (Auto) Baso % (Auto) Lymph # (Auto) Churchill # (Auto) Eos # (Auto) Baso # (Auto) Abs Immat Gran (auto) Absolute Neuts (auto) Absolute Nucleated RBC (0.0-0.012) X10*3/uL Nucleated RBC % (auto) (0.0-0.2) /100WBC Neutrophils % (Manual) (45-73) % Band Neutrophils % (3-5) % Lymphocytes % (Manual) (20-40) % Atypical Lymphs % (Man) (0-6) % Monocytes % (Manual) (2-11) % Abs Neuts (Manual) (2.0-8.3) X10*3/uL Lymphocytes # (Manual) (1.2-4.9) X10*3/uL Atyp Lymphs # (Manual) x10*3/uL Monocytes # (Manual) (0.1-1.2) X10*3/uL Platelet Estimate (NORMAL) Plt Morphology Comment RBC Morphology Hypochromasia /OIF Microcytosis /OIF Sodium (135-145) mmol/L Potassium (3.3-5.1) mmol/L Chloride (96-108) mmol/L Carbon Dioxide (22-29) mmol/L Anion Gap (12-20) BUN (9-16) mg/dL Creatinine (0.5-1.4) mg/dL Estim Creat Clear Calc Estimated GFR Random Glucose (60-115) mg/dL Calcium (8.4-10.2) mg/dL Total Bilirubin (0.0-1.0) mg/dL Direct Bilirubin (0.0-0.5) mg/dL AST (5-31) U/L ALT (0-31) U/L Alkaline Phosphatase (39-117) U/L Ammonia 30 (13-55) umol/L C-Reactive Protein (< or = 0.50) mg/dL Total Protein (6.5-8.0) g/dL Albumin (3.5-5.0) g/dL Lipase (8-78) U/L Urine Color Urine Appearance Urine pH (5.0-8.0) Ur Specific Jackson (1.005-1.025) Urine Protein (NEG-TRACE) MG/DL Urine Glucose (UA) (NEG) MG/DL Urine Ketones (NEG) MG/DL Urine Blood (NEG) Urine Nitrite (NEG) Ur Leukocyte Esterase (NEG) Urine RBC (0) /HPF Urine WBC (0-4) /HPF Ur Squamous Epith Cells /LPF Urine Bacteria /LPF Urine Mucus /LPF Valproic Acid (50.0-100.0) mcg/mL Monoscreen (Negative) Influenza Type A (PCR) (Negative) Influenza Type B (PCR) (Negative) RSV RNA Qual (PCR) (Negative) SARS-CoV-2 RNA (RT-PCR) (Negative) ECG Data Attestation: I personally reviewed and interpreted this ECG as follows: Prior ECG tracings: available for review Interpretation: Vent. rate 80 BPM IL interval 144 ms QRS duration 90 ms QT/QTc 396/456 ms P-R-T axes 27 62 29 Normal sinus rhythm Normal ECG When compared with ECG of 01-DEC-2019 14:48, No significant change was found 27-JAN-2022 17:37:52 Discharge Plan Discharge Clinical Impression: Adverse reaction to drug, Anxiety, Tremor Patient Disposition: Still a Patient Instructions: Tremors (ED) Additional Instructions: Please follow recommended medication changes from Psychiatry. Follow up with outpatient psychiatry as scheduled. Thank you for choosing this emergency department for evaluation. Please follow-up with primary care physician as needed. Return to the emergency department for any new, concerning, or worsening symptoms. Prescriptions: No Action mometasone [Nasonex] 50 mcg/actuation spray,non-aerosol 2 spray intranasal DAILY Qty: 17 0RF Rx Instructions: administer into each nostril lorazepam 0.5 mg tablet 1 tab PO DAILY PRN (Reason: Anxiety) 0RF divalproex 250 mg tablet extended release 24 hr 1,500 mg PO QAM 0RF atomoxetine 80 mg capsule 1 cap PO QAM 0RF Vraylar 1.5 mg capsule 1 cap PO QAM 0RF Vraylar 6 mg capsule 1 cap PO QAM 0RF
[2022-01-27 17:50] VITALS: BP 118/75; PULSE 82; RESP 18; TEMP 36.9; O2SAT 95
[2022-01-27] MEDS: 0.9 % Sodium Chloride 1,000 ML 999 ML IVCONT (18:30)
[2022-01-27 18:34] LABS: Appearance Urine CLEAR; Color Urine DK YELLOW; Glucose Urine UA NEG (NEG); Leukocyte Esterase Urine NEG (NEG); Nitrite Urine NEG (NEG); Specific Gravity - Urine >= 1.030 (1.005-1.025); UACC Culture Trigger NO; Urine Blood NEG (NEG); Urine Ketones 15 MG/DL (NEG); Urine Protein 1+ MG/DL (NEG-TRACE)
[2022-01-27 18:44] LABS: Bacteria Urine 1+ /LPF; Mucus Urine 1+ /LPF; RBC Urine 0-2 /HPF (0); Squamous Epithelial Cell Urine TRACE /LPF; WBC Urine 0-2 /HPF (0-4)
[2022-01-27 18:50] LABS: Anion Gap 15 (12-20); Blood Urea Nitrogen 9 mg/dL (9-16); Calcium 8.6 mg/dL (8.4-10.2); Carbon Dioxide 20 mmol/L (22-29); Chloride 105 mmol/L (96-108); Creatinine Clr Calc Pharmacy 137.3; Estimated Glomerular Filt Rate > 60; Glucose Random 92 mg/dL (60-115); Sodium 136 mmol/L (135-145)
[2022-01-27 18:53] LABS: Hematocrit 38.1 % (37.0-47.0); Hemoglobin 12.6 g/dl (12.0-16.0); Mean Corpuscular HGB Conc 33.1 g/dl (31.0-35.0); Mean Corpuscular Hemoglobin 25.4 pg (27.0-33.0); Mean Corpuscular Volume 76.7 fL (80.0-98.0); Mean Platelet Volume 10.3 fL (9.4-12.3); Platelet Count 148 X10*3/uL (160-400); Red Blood Count 4.97 X10*6/uL (4.20-5.50); Red Cell Distribution Width 13.5 % (11.0-16.0); White Blood Count 7.4 X10*3/uL (4.8-10.8)
[2022-01-27 19:00] LABS: Atypical Lymph Absolute Manual 1.4 x10*3/uL; Atypical Lymphs Percent Manual 19 % (0-6); Band Neutrophils Percent 7 % (3-5); Hypochromasia 1+ (5-14) /OIF; Lymphocytes Absolute Manual 4.2 X10*3/uL (1.2-4.9); Lymphocytes Percent Manual 57 % (20-40); Microcytosis 1+ (5-14) /OIF; Monocytes Absolute Manual 0.6 X10*3/uL (0.1-1.2); Monocytes Percent Manual 8 % (2-11); Neutrophils Absolute Manual 1.2 X10*3/uL (2.0-8.3); Neutrophils Percent Manual 9 % (45-73); RBC Morphology NOTED
[2022-01-27 19:01] LABS: Platelet Estimate NORMAL (NORMAL); Platelet Morphology Comment NORMAL
[2022-01-27 19:10] LABS: Influenza A PCR NEGATIVE (Negative); Influenza B PCR NEGATIVE (Negative); Resp Syncy Virus RNA Qual PCR NEGATIVE (Negative); SARS COV2 PCR INHOUSE NEGATIVE (Negative)
[2022-01-27] MEDS: LORazepam 0.5 MG TABLET PO (19:20)
[2022-01-27 19:51] LABS: Valproate 114.7 mcg/mL (50.0-100.0)
[2022-01-27 20:06] LABS: Monotest Positive (Negative)
[2022-01-27 20:19] LABS: Alanine Aminotransferase 121 U/L (0-31); Albumin Level 3.3 g/dL (3.5-5.0); Alkaline Phosphatase 106 U/L (39-117); Aspartate Amino Transferase 126 U/L (5-31); Bilirubin Direct < 0.2 mg/dL (0.0-0.5); Bilirubin Total 0.5 mg/dL (0.0-1.0); C Reactive Protein 2.84 mg/dL (< or = 0.50); Lipase 15 U/L (8-78); Total Protein 6.7 g/dL (6.5-8.0)
[2022-01-27 20:20] LABS: Ammonia 30 umol/L (13-55)
[2022-01-28] VITALS (7 sets, daily range): BP systolic 79–101; BP diastolic 31–57; PULSE 62–70; RESP 16–18; TEMP 36.5–36.7; O2SAT 93–98
--- NOTE | 2022-01-28 04:57 | PC.NURSE ---
BP 79/31 MD notified of BP
[2022-01-28] MEDS: Acetaminophen 325 MG TABLET 975 MG PO (05:06)
--- NOTE | 2022-01-28 05:06 | PC.NURSE ---
pt refusing blood draws at this time notified
--- NOTE | 2022-01-28 05:08 | PC.NURSE ---
THIS PCT ATTEMPTED TO DRAW PTS BLOOD. AND RN AWARE.
--- NOTE | 2022-01-28 05:14 | PC.NURSE ---
(Katalina) aware of BP no new orders at this time
--- NOTE | 2022-01-28 08:17 | PC.NURSE ---
pt awake. refusing repeat depakote level. states she wants to wait for psych consult and denies SI. is calm.
[2022-01-28] MEDS: 0.9 % Sodium Chloride 1,000 ML 999 ML IV (08:30)
[2022-01-28 08:51] LABS: Valproate 89.9 mcg/mL (50.0-100.0)
[2022-01-28 09:09] LABS: Hematocrit 35.1 % (37.0-47.0); Hemoglobin 11.4 g/dl (12.0-16.0); Mean Corpuscular HGB Conc 32.5 g/dl (31.0-35.0); Mean Corpuscular Hemoglobin 24.8 pg (27.0-33.0); Mean Corpuscular Volume 76.5 fL (80.0-98.0); Mean Platelet Volume 10.1 fL (9.4-12.3); Platelet Count 127 X10*3/uL (160-400); Red Blood Count 4.59 X10*6/uL (4.20-5.50); Red Cell Distribution Width 13.6 % (11.0-16.0); White Blood Count 6.3 X10*3/uL (4.8-10.8)
--- NOTE | 2022-01-28 09:21 | PC.NURSE ---
Pt remains alert, was cooperative with additional labs. repeats that she just feels weak . unable to view back of throat. skin pwd. awaits lab results.
[2022-01-28 09:23] LABS: Lactic Acid 0.8 mmol/L (0.5-2.0)
[2022-01-28 09:36] LABS: Alanine Aminotransferase 90 U/L (0-31); Albumin Level 2.7 g/dL (3.5-5.0); Aspartate Amino Transferase 89 U/L (5-31); Baso%MD 0.3 %; Bilirubin Direct 0.2 mg/dL (0.0-0.5); Bilirubin Total 0.5 mg/dL (0.0-1.0); Eos%MD 0.2 %; IG%MD 0.3 %; Lymph%MD 80.5 %; Mono%MD 7.5 %; Neut%MD 11.2 %; Total Protein 5.6 g/dL (6.5-8.0)
[2022-01-28 09:40] LABS: Atypical Lymph Absolute Manual 1.2 x10*3/uL; Atypical Lymphs Percent Manual 19 % (0-6); Band Neutrophils Percent 3 % (3-5); Basophils Abs Manual 0.1 X10*3/uL (0.0-0.2); Basophils Percent Manual 1 % (0-2); Lymphocytes Absolute Manual 3.7 X10*3/uL (1.2-4.9); Lymphocytes Percent Manual 58 % (20-40); Monocytes Absolute Manual 0.4 X10*3/uL (0.1-1.2); Monocytes Percent Manual 6 % (2-11); Neutrophils Percent Manual 13 % (45-73)
[2022-01-28 09:41] LABS: Microcytosis 1+ (5-14) /OIF; Platelet Estimate SLIGHTLY DECREASED (NORMAL); Platelet Morphology Comment NORM; RBC Morphology NOTED
[2022-01-28 09:42] LABS: Smudge Cells PRESENT
[2022-01-28 09:58] LABS: Alkaline Phosphatase 84 U/L (39-117)
--- NOTE | 2022-01-28 12:02 | PC.NURSE ---
Pt anxious. Has been to [place] with steady gait. Teary. states i just want to go home .
--- NOTE | 2022-01-28 12:41 | PM.PSYCN ---
History of Present Illness Date of Service: 01/28/22 Chief Complaint: very dehydrated/ not feeling well after medication Reason for Consult: medication Requesting physician: Katelyn Aranda Discussed with referring provider: Yes Sources of Information: patient interviewed, chart reviewed and crisis/core team assessment reviewed HPI Narrative: Consuelo is a 26 y.o. female who carries a dx of bipolar disorder and ADHD. She presented to [facility] ED on 01/27/22 due to dizziness, tremors, weakness, anxiety, and VH. Pt has an OP psych med regimen of vraylar 7.5 mg, atomoxetine 80 mg, and Depakote ER 1500 mg. While in the ED, pt was found to have abnormal lab values of neutrophil % 9 L, VPA level 114, atypical lymphs % 19 H, lymphocyte % 57 H, Abs Neut 1.2 L, platelet 148 L, AST 126 H, ALT 121 H, CRP 2.84 H. Repeat VPA level was wnl 89.9. Pt was found to be positive for mono. Psych consult requested for med evaluation due to abnormal lab values.? I evaluated the pt this evening and upon interview she reports her VPA is ?always high,? has been on it since she was 12. Pt?s mom was on speaker phone, as pt wanted her to participate in interview. Per pt?s mom, her VPA is usually in the high 80s and pt used to ?take a lot more depakote when she was manic.? Says pt was diagnosed with bipolar disorder at age 12 or 13. Pt?s mom said pt has had episodes of getting dehydrated and ?for some reason for her this manifests as seeing bugs,? i.e. has looked at a speckled countertop or floor and will say ?its ants and spiders.? She also reports that pt?s [employer] soil scientist told her pt has been complaining of hearing voices all week. Pt has been med adherent, as she has a VNA and a locked box. Her strattera was recently increased to 80 mg. Currently pt says her AH are ?not so much.? Says the voices tell her to hurt herself but ?I know its not real,? hears her own voices, says AH ?come and go.? She denies SI/SIB and says she feels safe. Past Psychiatric History: -Has OP psych services at [facility]. OP psychiatrist is Ted James. In the past it was Kaelyn Crews. Medical Evaluation Reviewed: Yes [facility] Medical History Anxiety Bipolar 1 disorder Depression Fibromyalgia Mental health disorder Diagnostics Vital Signs (24Hr): Vital Signs - 24 hr 01/27/22 16:45 01/27/22 17:50 01/28/22 00:02 Temperature 98.0 F 98.4 F Pulse Rate 106 H 82 Respiratory Rate 16 18 16 Blood Pressure 109/55 L 118/75 Pulse Oximetry 98 95 01/28/22 04:00 01/28/22 05:00 01/28/22 08:19 Temperature 98.1 F Pulse Rate 68 70 Respiratory Rate 16 16 18 Blood Pressure 79/31 L 94/57 L 92/41 L Pulse Oximetry 97 96 93 01/28/22 09:25 01/28/22 11:26 01/28/22 12:00 Temperature 97.7 F Pulse Rate 62 62 65 Respiratory Rate 18 18 18 Blood Pressure 90/52 L 93/50 L 101/40 L Pulse Oximetry 97 98 98 BMI result Body Mass Index 42.0 Labs Results: 01/28/22 09:02 01/27/22 18:27 Labs: Laboratory Results - last 48 hr 01/27/22 01/27/22 01/27/22 18:01 18:02 18:27 WBC 7.4 RBC 4.97 Hgb 12.6 Hct 38.1 MCV 76.7 L MCH 25.4 L MCHC 33.1 RDW 13.5 Plt Count 148 L MPV 10.3 Immature Gran % (Auto) Cancelled Neut % (Auto) Cancelled Lymph % (Auto) Cancelled [place] % (Auto) Cancelled Eos % (Auto) Cancelled Baso % (Auto) Cancelled Lymph # (Auto) Cancelled [place] # (Auto) Cancelled Eos # (Auto) Cancelled Baso # (Auto) Cancelled Abs Immat Gran (auto) Cancelled Absolute Neuts (auto) Cancelled Absolute Nucleated RBC 0.000 Nucleated RBC % (auto) 0.0 Neutrophils % (Manual) 9 L Band Neutrophils % 7 H Lymphocytes % (Manual) 57 H Atypical Lymphs % (Man) 19 H Monocytes % (Manual) 8 Basophils % (Manual) Abs Neuts (Manual) 1.2 L Lymphocytes # (Manual) 4.2 Atyp Lymphs # (Manual) 1.4 Monocytes # (Manual) 0.6 Basophils # (Manual) Smudge Cells Platelet Estimate NORMAL Plt Morphology Comment NORMAL RBC Morphology NOTED Hypochromasia 1+ (5-14) Microcytosis 1+ (5-14) Sodium Potassium Chloride Carbon Dioxide Anion Gap BUN Creatinine Estim Creat Clear Calc Estimated GFR Random Glucose Lactic Acid Calcium Total Bilirubin Direct Bilirubin AST ALT Alkaline Phosphatase Ammonia C-Reactive Protein Total Protein Albumin Lipase Urine Color DK YELLOW Urine Appearance CLEAR Urine pH 6.0 Ur Specific Wall[place] >= 1.030 H Urine Protein 1+ H Urine Glucose (UA) NEG Urine Ketones 15 Urine Blood NEG Urine Nitrite NEG Ur Leukocyte Esterase NEG Urine RBC 0-2 Urine WBC 0-2 Ur Squamous Epith Cells TRACE Urine Bacteria 1+ Urine Mucus 1+ Valproic Acid Monoscreen Influenza Type A (PCR) NEGATIVE Influenza Type B (PCR) NEGATIVE RSV RNA Qual (PCR) NEGATIVE SARS-CoV-2 RNA (RT-PCR) NEGATIVE 01/27/22 01/27/22 01/27/22 18:27 18:27 18:27 WBC RBC Hgb Hct MCV MCH MCHC RDW Plt Count MPV Immature Gran % (Auto) Neut % (Auto) Lymph % (Auto) [place] % (Auto) Eos % (Auto) Baso % (Auto) Lymph # (Auto) [place] # (Auto) Eos # (Auto) Baso # (Auto) Abs Immat Gran (auto) Absolute Neuts (auto) Absolute Nucleated RBC Nucleated RBC % (auto) Neutrophils % (Manual) Band Neutrophils % Lymphocytes % (Manual) Atypical Lymphs % (Man) Monocytes % (Manual) Basophils % (Manual) Abs Neuts (Manual) Lymphocytes # (Manual) Atyp Lymphs # (Manual) Monocytes # (Manual) Basophils # (Manual) Smudge Cells Platelet Estimate Plt Morphology Comment RBC Morphology Hypochromasia Microcytosis Sodium 136 Potassium 4.0 Chloride 105 Carbon Dioxide 20 L Anion Gap 15 BUN 9 Creatinine 0.65 Estim Creat Clear Calc 137.3 Estimated GFR > 60 Random Glucose 92 Lactic Acid Calcium 8.6 Total Bilirubin 0.5 Direct Bilirubin < 0.2 AST 126 H ALT 121 H Alkaline Phosphatase 106 Ammonia C-Reactive Protein 2.84 H Total Protein 6.7 Albumin 3.3 L Lipase 15 Urine Color Urine Appearance Urine pH Ur Specific [place] Urine Protein Urine Glucose (UA) Urine Ketones Urine Blood Urine Nitrite Ur Leukocyte Esterase Urine RBC Urine WBC Ur Squamous Epith Cells Urine Bacteria Urine Mucus Valproic Acid 114.7 H* Monoscreen Positive A Influenza Type A (PCR) Influenza Type B (PCR) RSV RNA Qual (PCR) SARS-CoV-2 RNA (RT-PCR) 01/27/22 01/28/22 01/28/22 20:03 08:23 09:02 WBC RBC Hgb Hct MCV MCH MCHC RDW Plt Count MPV Immature Gran % (Auto) Neut % (Auto) Lymph % (Auto) [place] % (Auto) Eos % (Auto) Baso % (Auto) Lymph # (Auto) [place] # (Auto) Eos # (Auto) Baso # (Auto) Abs Immat Gran (auto) Absolute Neuts (auto) Absolute Nucleated RBC Nucleated RBC % (auto) Neutrophils % (Manual) Band Neutrophils % Lymphocytes % (Manual) Atypical Lymphs % (Man) Monocytes % (Manual) Basophils % (Manual) Abs Neuts (Manual) Lymphocytes # (Manual) Atyp Lymphs # (Manual) Monocytes # (Manual) Basophils # (Manual) Smudge Cells Platelet Estimate Plt Morphology Comment RBC Morphology Hypochromasia Microcytosis Sodium Potassium Chloride Carbon Dioxide Anion Gap BUN Creatinine Estim Creat Clear Calc Estimated GFR Random Glucose Lactic Acid Calcium Total Bilirubin 0.5 Direct Bilirubin 0.2 AST 89 H ALT 90 H Alkaline Phosphatase 84 D Ammonia 30 C-Reactive Protein Total Protein 5.6 L Albumin 2.7 L Lipase Urine Color Urine Appearance Urine pH Ur Specific [place] Urine Protein Urine Glucose (UA) Urine Ketones Urine Blood Urine Nitrite Ur Leukocyte Esterase Urine RBC Urine WBC Ur Squamous Epith Cells Urine Bacteria Urine Mucus Valproic Acid 89.9 Monoscreen Influenza Type A (PCR) Influenza Type B (PCR) RSV RNA Qual (PCR) SARS-CoV-2 RNA (RT-PCR) 01/28/22 01/28/22 09:02 09:02 WBC 6.3 RBC 4.59 Hgb 11.4 L Hct 35.1 L MCV 76.5 L MCH 24.8 L MCHC 32.5 RDW 13.6 Plt Count 127 L MPV 10.1 Immature Gran % (Auto) Cancelled Neut % (Auto) Cancelled Lymph % (Auto) Cancelled [place] % (Auto) Cancelled Eos % (Auto) Cancelled Baso % (Auto) Cancelled Lymph # (Auto) Cancelled [place] # (Auto) Cancelled Eos # (Auto) Cancelled Baso # (Auto) Cancelled Abs Immat Gran (auto) Cancelled Absolute Neuts (auto) Cancelled Absolute Nucleated RBC 0.000 Nucleated RBC % (auto) 0.0 Neutrophils % (Manual) 13 L Band Neutrophils % 3 Lymphocytes % (Manual) 58 H Atypical Lymphs % (Man) 19 H Monocytes % (Manual) 6 Basophils % (Manual) 1 Abs Neuts (Manual) 1.0 L Lymphocytes # (Manual) 3.7 Atyp Lymphs # (Manual) 1.2 Monocytes # (Manual) 0.4 Basophils # (Manual) 0.1 Smudge Cells PRESENT Platelet Estimate SLIGHTLY DECREASED Plt Morphology Comment NORM RBC Morphology NOTED Hypochromasia Microcytosis 1+ (5-14) Sodium Potassium Chloride Carbon Dioxide Anion Gap BUN Creatinine Estim Creat Clear Calc Estimated GFR Random Glucose Lactic Acid 0.8 Calcium Total Bilirubin Direct Bilirubin AST ALT Alkaline Phosphatase Ammonia C-Reactive Protein Total Protein Albumin Lipase Urine Color Urine Appearance Urine pH Ur Specific [place] Urine Protein Urine Glucose (UA) Urine Ketones Urine Blood Urine Nitrite Ur Leukocyte Esterase Urine RBC Urine WBC Ur Squamous Epith Cells Urine Bacteria Urine Mucus Valproic Acid Monoscreen Influenza Type A (PCR) Influenza Type B (PCR) RSV RNA Qual (PCR) SARS-CoV-2 RNA (RT-PCR) Mental Status Exam Mental Status Exam Narrative: A&O. In hospital attire, makeup, overweight. Good eye contact, attentive. No Tics or Tremors. No abnormal involuntary movements. Calm, guarded, difficult to engage in long conversation. Non-pressured speech, spontaneous with regular rate and rhythm, normal volume and prosody. No prolonged speech latency or dysarthria. Mood is ?good,? affect is blunted. Denies SI/SIB/HI upon inquiry. Endorses AH but this appears baseline, currently denies VH or delusional thought content. Thoughts are coherent, organized. No known cognitive or memory impairment. Insight/ Judgment fair and adequate. Medications Allergies Allergies Allergy/AdvReac Type Severity Reaction Status Date / Time lithium [LITHIUM] Allergy Intermediate HIVES Verified 01/27/22 16:44 nicotine [From NICODERM CQ] Allergy Unknown HIVES FROM Verified 12/14/21 14:42 THE PATCH Assessment & Plan Assessment & Plan (1) Bipolar 1 disorder: Status: Acute Code(s): F31.9 - Bipolar disorder, unspecified (2) ADHD (attention deficit hyperactivity disorder): Status: Acute Code(s): F90.9 - Attention-deficit hyperactivity disorder, unspecified type Plan ? Plan: Pt says she likes her meds where they're at. Her mom agrees. Pt?s abnormal lab values appear consistent with mono diagnosis. Would continue meds unchanged and follow up with OP psych provider.? -Continue monitoring medically. Patient is currently medically cleared. -Consult requested for med management -Patient can leave when medically cleared, as she appears psychiatrically at baseline, reports positive benefit on medication, and currently denies VH. She received supportive care and fluids for her mono. Thank you for this consultation. If you have any questions or concerns, please do not hesitate to contact psychiatry service. I spent minutes with the patient and/or on the patient floor today, greater than?50% of which was spent counseling/coordinating care. Patient educated on: medication risk/benefits
--- NOTE | 2022-01-28 13:01 | PC.NURSE ---
has been seen by Farhana CASTILLO
[2022-01-29 04:09] LABS: HBS Num1 2.38 mIU/mL (0-7.99); HBc Num1 0.29 S/CO (0.00-0.79); HBsAGNum1 0.18 S/CO (0.00-0.99); Hepatitis B Core Antibody Nonreactive (Nonreactive); Hepatitis B Surface Antigen Negative (Negative); ~Hepatitis B Surface Antibody NONREACTIVE (Nonreactive)
[2022-01-29 04:18] LABS: ~Hepatitis C Antibody Nonreactive (Nonreactive)
[2022-01-31 05:12] LABS: ~Hepatitis A Antibody IgM Nonreactive (Nonreactive)
== END 2022-01-28 13:43 | disposition home or self-care (01) ==
PROVIDERS: Nurse Practitioner Family; Registered Nurse; Emergency Provider Emergency Medicine
DX: F41.9 Anxiety disorder, unspecified (principal); R44.1 Visual hallucinations; G25.1 Drug-induced tremor; T43.215A Adverse effect of selective serotonin and norepinephrine reuptake inhibitors, initial encounter; Y92.9 Unspecified place or not applicable; B27.90 Infectious mononucleosis, unspecified without complication; F31.9 Bipolar disorder, unspecified; R45.851 Suicidal ideations; F17.200 Nicotine dependence, unspecified, uncomplicated; F12.90 Cannabis use, unspecified, uncomplicated; Z20.822 Contact with and (suspected) exposure to COVID-19; Z79.899 Other long term (current) drug therapy
CPT/HCPCS: 0241U; 36415; 80048; 80076; 80164; 81001; 82140; 83605; 83690; 85007; 85027; 86140; 86308; 86704; 86706; 86709; 86803; 87040; 87340; 93005; 96360; 99285

== ENCOUNTER 2022-02-11 19:10 | Emergency (ER) | payer OTHER, SELFPAY ==
[2022-02-11 19:18] VITALS: BP 129/71; PULSE 85; RESP 16; TEMP 36.6; O2SAT 100; BMI 39.6
--- NOTE | 2022-02-11 20:32 | ED.PSYCH ---
HPI - Psych General Chief Complaint: Psychiatric Symptoms Stated Complaint: not taking meds Time Seen by Provider: 02/11/22 20:23 Source: patient and family Mode of arrival: ambulatory Limitations: no limitations History of Present Illness HPI Narrative: This is a 26-year-old female past medical history significant for bipolar disorder, ADHD presenting to the emergency department with her mother who is concerned that she has been acting ?strange ?. According to patient there is nothing wrong with her and she is annoyed because she does not want to be here. Mother tells me that recently her Depakote level got changed from 2355-5176 mg. Patient has been crying, screaming, making suicidal comments such as ?I do not Wanna live anymore ?. According to mother patient usually has a mid nurse Saturday through Saturday who comes to the patient's house and gives her her medication however on the weekends the nurse leaves medications at home for the patient to take. Patient has been flushing her medications down the toilet. Not taking them. She tells me she does not think she needs them. Patient has an apartment however lately she has been staying at her grandparent's home. Today her grandparents told her to leave as she is not taking her medications and according to mother and family she has been acting ?manic ?and ?all over ?. Patient tells me that she smokes cigarettes 8 cigarettes a day and bleed. She denies alcohol use. She also admits to marijuana. She denies homicidal ideation and suicidal ideation to me. She denies visual, auditory and tactile hallucinations. She denies medical complaints at this time History of same: Yes Relieving factors: none Exacerbating factors: none Associated psychiatric symptoms: none Associated symptoms: denies other symptoms Treatments prior to arrival: none Related Data Home Medications Medication Instructions Recorded Confirmed cariprazine 6 mg capsule (Vraylar) 1 cap PO QAM 01/27/22 02/11/22 atomoxetine 80 mg capsule 1 cap PO QAM 02/11/22 02/11/22 cariprazine 1.5 mg capsule 1 cap PO DAILY 02/11/22 02/11/22 (Vraylar) divalproex 250 mg tablet,extended 1,250 mg PO QAM 02/11/22 02/11/22 release 24 hr Allergies Allergy/AdvReac Type Severity Reaction Status Date / Time lithium [LITHIUM] Allergy Intermediate HIVES Verified 01/27/22 16:44 nicotine [From NICODERM CQ] Allergy Unknown HIVES FROM Verified 12/14/21 14:42 THE PATCH Review of Systems Review of Systems: Constitutional : No Fever, No Chills ENT/Mouth : No sore throat, No Rhinorrhea Eyes: No Eye Pain, No Swelling, No Redness Cardiovascular : No Chest Pain, No SOB Respiratory : No Cough, No Sputum Gastrointestinal : No Nausea, No Vomiting, No Diarrhea, No abdominal Pain Genitourinary : No Dysuria, No Hematuria Musculoskeletal : No joint pain, No Myalgias, No Joint Swelling Skin : No Skin Lesions, No rash Neuro : No Weakness, No Numbness Psych : No Anxiety, No Depression, No SI/HI/AH/VH Heme/Lymph: No Bruising, No Bleeding Endocrine : No Polyuria, No Polydipsia All other systems reviewed and are negative Yes all other systems are reviewed and are negative [facility] Past Medical History Attestation statement: The following information was validated with the patient. Source: old records reviewed and nursing notes reviewed Medical History Anxiety Bipolar 1 disorder Depression Fibromyalgia Mental health disorder Social History Social History Alcohol intake: current Alcohol intake frequency: a few times a month Patient Tobacco Use Status: Current everyday Tobacco user Substance Use Type: Marijuana Advance Directives: No Advance Directives Information Provided: No Patient : No Physical Exam Vital Signs: Vital Signs: Last Vital Signs Temp 97.9 F 02/11/22 19:18 Pulse 85 02/11/22 19:18 Resp 16 02/11/22 19:18 BP 129/71 02/11/22 19:18 Pulse Ox 100 02/11/22 19:18 BMI result Body Mass Index 39.6 Vital signs stable. Appearance: Alert.? Oriented X3.? No acute distress.? Patient very blunt with answering questions. Labile mood Head: Normocephalic, atraumatic, no step-offs or deformities Eyes: Pupils equal, round and reactive to light.? ENT: Pharynx normal.? Neck: Normal inspection.? Neck supple.? CVS: Normal heart rate and rhythm.? Pulses normal.? Respiratory: No respiratory distress.? Breath sounds normal.? Abdomen: Soft and nontender.? Skin: Skin warm and dry.? Normal skin color.? Normal skin turgor.? Extremities: No lower extremity edema.? No calf ttp. 5/5 strength to bilateral upper and lower extremities Back: No midline tenderness, no C-spine tenderness, full range of motion, no CVA tenderness bilaterally Neuro: Oriented X 3.? No motor deficit.? No sensory deficit. CN 2-12 intact Course Reevaluation(s) Reevaluation #1: CBC appears to be at patient's baseline. No acute electrolyte abnormalities. Valproic acid noted to be 29.7 will give her home dose. UA and CHA pending Time: 21:17 Reevaluation #2: At this time patient will be placed in physician observation to allow more time to be evaluated by the behavioral health team. At time observation was started patient, cooperative no acute distress. Pending urine and CHA. Time: 01:58 Reevaluation #3: Jonnathan JOHNSON spoke to me patients denying SI and HI. Recommend psych consult tomorrow morning. This Saturday mom told ALEX she has a meeting with [facility] provider with [facility], ALEX and [facility] to discuss hows shes doing and discussing medication. She will stay to the am for psych consult. Time: 02:03 MDM - Psych MDM Narrative Medical decision making narrative: [age] yo f presents w/ bizzare behavior according to mother. Mom reports that patient had a medication change. Patient tells me there is nothing wrong with her PE benign. Lablie mood. Plan- labs, medical clerance, behavioral health consult. Medical Records Attestation: I reviewed the patient's medical records. Lab Data Attestation: I reviewed the patient's lab results. Result diagrams: 02/11/22 20:24 02/11/22 20:24 Labs: Lab Results 02/11/22 02/11/22 02/11/22 Range/Units 20:24 20:24 20:24 WBC 5.6 (4.8-10.8) X10*3/uL RBC 5.14 (4.20-5.50) X10*6/uL Hgb 12.9 (12.0-16.0) g/dl Hct 39.8 (37.0-47.0) % MCV 77.4 L (80.0-98.0) fL MCH 25.1 L (27.0-33.0) pg MCHC 32.4 (31.0-35.0) g/dl RDW 13.4 (11.0-16.0) % Plt Count 211 D (160-400) X10*3/uL MPV 9.2 L (9.4-12.3) fL Immature Gran % (Auto) 0.2 (0.0-0.4) % Neut % (Auto) 24.1 L (45-73) % Lymph % (Auto) 62.2 H (20-40) % [place] % (Auto) 13.1 H (2-11) % Eos % (Auto) 0.2 (0-4) % Baso % (Auto) 0.2 (0-2) % Lymph # (Auto) 3.5 (1.2-4.9) X10*3/uL [place] # (Auto) 0.7 (0.1-1.2) X10*3/uL Eos # (Auto) 0.0 (0.0-0.4) X10*3/uL Baso # (Auto) 0.0 (0.0-0.2) X10*3/uL Abs Immat Gran (auto) 0.01 (0.00-0.03) X10*3/uL Absolute Neuts (auto) 1.3 L (2.0-8.3) x10*3/uL Absolute Nucleated RBC 0.000 (0.0-0.012) X10*3/uL Nucleated RBC % (auto) 0.0 (0.0-0.2) /100WBC Smear Tech's Comments VERIFIED Sodium 138 (135-145) mmol/L Potassium 4.6 (3.3-5.1) mmol/L Chloride 107 (96-108) mmol/L Carbon Dioxide 22 (22-29) mmol/L Anion Gap 14 (12-20) BUN 9 (9-16) mg/dL Creatinine 0.63 (0.5-1.4) mg/dL Estim Creat Clear Calc 142.6 Estimated GFR > 60 Random Glucose 95 (60-115) mg/dL Calcium 8.9 (8.4-10.2) mg/dL Valproic Acid (50.0-100.0) mcg/mL COVID-19 (SUPA) Negative (Negative) COVID-19 Clin Com See Note 02/11/22 Range/Units 20:24 WBC (4.8-10.8) X10*3/uL RBC (4.20-5.50) X10*6/uL Hgb (12.0-16.0) g/dl Hct (37.0-47.0) % MCV (80.0-98.0) fL MCH (27.0-33.0) pg MCHC (31.0-35.0) g/dl RDW (11.0-16.0) % Plt Count (160-400) X10*3/uL MPV (9.4-12.3) fL Immature Gran % (Auto) (0.0-0.4) % Neut % (Auto) (45-73) % Lymph % (Auto) (20-40) % [place] % (Auto) (2-11) % Eos % (Auto) (0-4) % Baso % (Auto) (0-2) % Lymph # (Auto) (1.2-4.9) X10*3/uL [place] # (Auto) (0.1-1.2) X10*3/uL Eos # (Auto) (0.0-0.4) X10*3/uL Baso # (Auto) (0.0-0.2) X10*3/uL Abs Immat Gran (auto) (0.00-0.03) X10*3/uL Absolute Neuts (auto) (2.0-8.3) x10*3/uL Absolute Nucleated RBC (0.0-0.012) X10*3/uL Nucleated RBC % (auto) (0.0-0.2) /100WBC Smear Tech's Comments Sodium (135-145) mmol/L Potassium (3.3-5.1) mmol/L Chloride (96-108) mmol/L Carbon Dioxide (22-29) mmol/L Anion Gap (12-20) BUN (9-16) mg/dL Creatinine (0.5-1.4) mg/dL Estim Creat Clear Calc Estimated GFR Random Glucose (60-115) mg/dL Calcium (8.4-10.2) mg/dL Valproic Acid 29.7 L (50.0-100.0) mcg/mL COVID-19 (SUPA) (Negative) COVID-19 Clin Com Critical Care Time Critical Care Time Critical Care Time: No Discharge Plan Discharge Clinical Impression: Bipolar 1 disorder Patient Disposition: Still a Patient Prescriptions: No Action atomoxetine 80 mg capsule 1 cap PO QAM 0RF Vraylar 1.5 mg capsule 1 cap PO DAILY 0RF divalproex 250 mg tablet extended release 24 hr 1,250 mg PO QAM 0RF Vraylar 6 mg capsule 1 cap PO QAM 0RF
[2022-02-11 20:38] LABS: Basophils Percent Auto 0.2 % (0-2); Eosinophils Percent Auto 0.2 % (0-4); Hematocrit 39.8 % (37.0-47.0); Hemoglobin 12.9 g/dl (12.0-16.0); Imm Gran Abs Auto 0.01 X10*3/uL (0.00-0.03); Imm Gran Pct Auto 0.2 % (0.0-0.4); Lymphocytes Absolute Auto 3.5 X10*3/uL (1.2-4.9); Lymphocytes Percent Auto 62.2 % (20-40); MANUAL DIFF FLAG SCAN; Mean Corpuscular HGB Conc 32.4 g/dl (31.0-35.0); Mean Corpuscular Hemoglobin 25.1 pg (27.0-33.0); Mean Corpuscular Volume 77.4 fL (80.0-98.0); Mean Platelet Volume 9.2 fL (9.4-12.3); Monocytes Absolute Auto 0.7 X10*3/uL (0.1-1.2); Monocytes Percent Auto 13.1 % (2-11); Neutrophils Absolute Auto 1.3 x10*3/uL (2.0-8.3); Neutrophils Percent Auto 24.1 % (45-73); Platelet Count 211 X10*3/uL (160-400); Red Blood Count 5.14 X10*6/uL (4.20-5.50); Red Cell Distribution Width 13.4 % (11.0-16.0); SCAN SMEAR FLAG 1; White Blood Count 5.6 X10*3/uL (4.8-10.8)
[2022-02-11 20:49] LABS: Anion Gap 14 (12-20); Blood Urea Nitrogen 9 mg/dL (9-16); Calcium 8.9 mg/dL (8.4-10.2); Carbon Dioxide 22 mmol/L (22-29); Chloride 107 mmol/L (96-108); Creatinine Clr Calc Pharmacy 142.6; Estimated Glomerular Filt Rate > 60; Glucose Random 95 mg/dL (60-115); Potassium 4.6 mmol/L (3.3-5.1); Sodium 138 mmol/L (135-145)
[2022-02-11 20:51] LABS: COVID-19 Test Negative (Negative); IDNOW Serial# 55D5AD1C
[2022-02-11 20:56] LABS: Valproate 29.7 mcg/mL (50.0-100.0)
[2022-02-11 20:59] LABS: SLIDE REVIEW VERIFIED
--- NOTE | 2022-02-12 05:27 | PC.NURSE ---
Patient slept through the night, no distress observed/reported, behavior non concerning at this time, med rec completed/pending provider's approval, BHN assessed the patient, patient engaged well, disposition d/c home after psych consult, patient/mother/provider agreement with plan, VSS, urine pending, will continue to monitor.
--- NOTE | 2022-02-12 06:01 | PC.NURSE ---
patient appears to remain asleep at present patient appears in no distress
[2022-02-12 09:10] LABS: Appearance Urine CLOUDY; Color Urine YELLOW; Glucose Urine UA NEG (NEG); Leukocyte Esterase Urine TRACE (NEG); Nitrite Urine NEG (NEG); Specific Gravity - Urine 1.025 (1.005-1.025); Urine Blood NEG (NEG); Urine Ketones NEG (NEG); Urine Protein NEG (NEG-TRACE)
[2022-02-12 09:12] LABS: UPreg QC Valid YES; Urine Pregnancy NEGATIVE (NEGATIVE)
[2022-02-12 09:20] LABS: Bacteria Urine 1+ /LPF; RBC Urine 0-2 /HPF (0); Squamous Epithelial Cell Urine 3+ /LPF
[2022-02-12 09:21] LABS: Amorphous Sediment Urine 1+ /LPF
[2022-02-12 09:28] LABS: Amphetamine Screen Urine Not Detected (Not Detect); Barbiturates, Urine Not Detected (Not Detect); Benzodiazepines Screen Urine Not Detected (Not Detect); Cannabinoid Screen Urine POSITIVE (Not Detect); Cocaine Screen Urine Not Detected (Not Detect); Fentanyl, urine Not Detected (Not Detect); Opiate Screen Urine Not Detected (Not Detect); Phencyclidine Screen Urine Not Detected (Not Detect)
[2022-02-12] MEDS: Cariprazine HCl 1.5 MG CAPSULE PO (10:13)
[2022-02-12] MEDS: Divalproex Sodium ER 250 MG TAB.ER.24H 1250 MG PO (10:13)
[2022-02-12] MEDS: Cariprazine HCl 3 MG CAPSULE 6 MG PO ×2 (10:13)
--- NOTE | 2022-02-12 10:20 | PC.NURSE ---
patient generally seems impatient to wait for the psych consult . my mom stayed out of work for this
== END 2022-02-12 12:28 | disposition home or self-care (01) ==
PROVIDERS: Emergency Provider Internal Medicine
DX: F31.9 Bipolar disorder, unspecified (principal); F90.9 Attention-deficit hyperactivity disorder, unspecified type; F17.210 Nicotine dependence, cigarettes, uncomplicated; Z71.6 Tobacco abuse counseling; Z79.899 Other long term (current) drug therapy; Z20.822 Contact with and (suspected) exposure to COVID-19
CPT/HCPCS: 36415; 80048; 80164; 80307; 81001; 81025; 85025; 87635; 99284; 99285

== ENCOUNTER 2022-07-05 10:46 | Emergency (ER) | payer OTHER, SELFPAY ==
--- NOTE | ~2022-07-05 | XR_ITS ---
EXAMINATION: XR CHEST CLINICAL INFORMATION: Productive cough COMPARISON: November 2021. TECHNIQUE: 2 views of the chest were obtained. FINDINGS: No significant abnormality is noted involving the heart, lungs, mediastinum, bony thorax or soft tissues. There are surgical clips again observed superimposing the left apex. XR/XR chest 2V IMPRESSION: Unremarkable examination.
[2022-07-05 10:51] VITALS: BP 128/82; PULSE 92; RESP 18; TEMP 36.8; O2SAT 98; BMI 41.0
[2022-07-05 11:24] LABS: COVID-19 Test Negative (Negative)
[2022-07-05 11:56] LABS: MANUAL DIFF FLAG NO
[2022-07-05 11:57] LABS: Basophils Percent Auto 0.2 % (0-2); Eosinophils Percent Auto 0.2 % (0-4); Hematocrit 39.6 % (37.0-47.0); Hemoglobin 13.1 g/dl (12.0-16.0); Imm Gran Abs Auto 0.03 X10*3/uL (0.00-0.03); Imm Gran Pct Auto 0.3 % (0.0-0.4); Lymphocytes Absolute Auto 3.4 X10*3/uL (1.2-4.9); Lymphocytes Percent Auto 36.8 % (20-40); Mean Corpuscular HGB Conc 33.1 g/dl (31.0-35.0); Mean Corpuscular Hemoglobin 25.4 pg (27.0-33.0); Mean Corpuscular Volume 76.7 fL (80.0-98.0); Mean Platelet Volume 9.6 fL (9.4-12.3); Monocytes Absolute Auto 0.7 X10*3/uL (0.1-1.2); Monocytes Percent Auto 8.1 % (2-11); Neutrophils Percent Auto 54.4 % (45-73); Platelet Count 299 X10*3/uL (160-400); Red Blood Count 5.16 X10*6/uL (4.20-5.50); Red Cell Distribution Width 12.8 % (11.0-16.0); White Blood Count 9.2 X10*3/uL (4.8-10.8)
[2022-07-05 12:08] LABS: Prothrombin Time 11.5 SEC (10.0-13.1)
--- NOTE | 2022-07-05 12:09 | ED.GENADULT ---
HPI - General Adult General Chief complaint: Nausea/Vomiting/Diarrhea Stated complaint: throwing up blood, headache Time Seen by Provider: 07/05/22 11:30 Source: patient Mode of arrival: ambulatory Limitations: no limitations History of Present Illness HPI narrative: 27-year-old female with history of ADHD, bipolar 1 disorder, brain tumor who presents to the ER for evaluation of blood speckled vomit for the last 3 or 4 days. She has been feeling unwell for the last 2 weeks with headaches, sore throat, body aches and just generally not feeling well. She has been seen by urgent care clinic 2 days ago where she had a negative COVID negative strep test. She reports an ongoing productive cough of yellow phlegm. The last couple of days she has had new onset of nausea and vomiting, 3-4 episodes per day and her vomit has specks of red blood in it. No diffuse hematemesis or coffee-ground emesis. She denies any melena or bright red blood per rectum. She denies any abdominal pain. She feels weak and exhausted. She states she has not slept in the last 3 days. MD complaint: productive cough, nausea and vomiting Onset (ago): week(s) Location: mouth, chest and abdomen Radiation: non-radiation Severity: moderate Severity scale (1-10): 5 Quality: aching Pain Consistency: constant Relieving factors: none Exacerbating factors: eating Associated symptoms: cough, fever/chills, headaches, loss of appetite, malaise, nausea/vomiting and weakness Treatments prior to arrival: none Related Data Home Medications Medication Instructions Recorded Confirmed cariprazine 6 mg capsule (Vraylar) 1 cap PO QAM 01/27/22 02/11/22 atomoxetine 80 mg capsule 1 cap PO QAM 02/11/22 02/11/22 cariprazine 1.5 mg capsule 1 cap PO DAILY 02/11/22 02/11/22 (Vraylar) divalproex 250 mg tablet,extended 1,250 mg PO QAM 02/11/22 02/11/22 release 24 hr Previous Rx's Medication Instructions Recorded albuterol sulfate 90 mcg/actuation 1 inh inhalation QID PRN shortness 07/05/22 aerosol inhaler of breath or wheezing #6.7 grams azithromycin 250 mg tablet See Rx Instructions PO .COMPLEX #6 07/05/22 (Zithromax Z-Rajat) tabs metronidazole 500 mg tablet 500 mg PO BID 7 days #14 tabs 07/05/22 ondansetron 4 mg disintegrating 4 mg PO Q6-8H PRN nausea and 07/05/22 tablet vomiting #10 tabs Allergies Allergy/AdvReac Type Severity Reaction Status Date / Time lithium [LITHIUM] Allergy Intermediate HIVES Verified 07/05/22 10:50 nicotine [From NICODERM Rezora] Allergy Unknown HIVES FROM Verified 07/05/22 10:50 THE PATCH Review of Systems Review of Systems: Constitutional: No Fever, No Chills ENT/Mouth: + sore throat, No Rhinorrhea, No Swallowing Difficulty Eyes: No Eye Pain, No Swelling, No Redness Cardiovascular: No Chest Pain, No SOB, No Orthopnea, No Edema Respiratory: + Cough, +Sputum, No Wheezing, No dyspnea Gastrointestinal: + Nausea, +Vomiting, No Diarrhea, No abdominal Pain, No Hematochezia, No Melena Genitourinary: No Dysuria, No Urinary Frequency, No Hematuria Musculoskeletal: No joint pain, + Myalgias Skin: No Skin Lesions, No rash Neuro: + Weakness, No Numbness, No Dizziness, + Headache Psych: No Anxiety/Panic, No Depression Heme/Lymph: No Bruising, No Lymphadenopathy Endocrine: No Polyuria, No Polydipsia PMFSH Past Medical History Medical History Anxiety Bipolar 1 disorder Depression Fibromyalgia Mental health disorder Social History Social History Alcohol intake: unknown Patient Tobacco Use Status: Current everyday Tobacco user Use of substances other than those prescribed or required for medical reasons: Unknown Substance Use Type: Marijuana Advance Directives: No Patient : No Physical Exam ED Vital Signs: Vital Signs - 24 hr 07/05/22 10:51 07/05/22 14:05 Temperature 98.3 F Pulse Rate 92 66 Respiratory Rate 18 14 Blood Pressure 128/82 106/60 Pulse Oximetry 98 92 Oxygen Delivery Method Room Air Room Air BMI result Body Mass Index 41.0 Appearance: Alert. Oriented X3. No acute distress. Eyes: anisocoria, right pupil 4 mm, left pupil 3 mm, reactive to light ENT: Pharynx with moist mucous membranes, posterior pharyngeal erythema without tonsillar exudate or swelling. Uvula midline Neck: Normal inspection. Neck supple. CVS: Normal heart rate and rhythm. Pulses normal. Respiratory: No respiratory distress. Breath sounds normal. congested cough noted Abdomen: Soft and nontender. +BS x4 Skin: Skin warm and dry. Normal skin color. Normal skin turgor. No rashes. Extremities: No lower extremity edema. Neuro: Oriented X 3. No motor deficit. No sensory deficit. Course Course Course Narrative: 27-year-old female with history of bipolar, ADHD, brain tumor who presents to the ER for evaluation of feeling unwell for the last 2 weeks. Recently started having vomiting episodes with speckled amount of red blood. no gross hematemesis or coffee-ground emesis. Most likely Ellyn-Hammond tear with recurrent vomiting. She has no abdominal pain. Her exam is benign. She reports the worse part of her illness is her cough that is keeping her up at night. She has not slept well in several days. Lab workup is pending will also get chest x-ray to rule out pneumonia. She is refusing IV and IV medications. Reevaluation(s) Reevaluation #1: COVID & mononucleosis are negative. No leukocytosis. Chest x-ray is pending. Reevaluation #2: Chest x-ray is negative for pneumonia. Patient reports she has tested positive for Trichomonas almost 2 weeks ago and lost the antibiotics. She is asking for refill of this. She denies any vaginal discharge at this time. No pelvic pain. Will refill her metronidazole and have her follow-up with her primary care doctor in OBGYN. Will give Zofran as needed for nausea. Return precautions were discussed. Stable for DC. Medical Decision Making Lab Data Result diagrams: 07/05/22 11:50 07/05/22 11:50 Labs: Lab Results 07/05/22 07/05/22 07/05/22 Range/Units 10:59 11:50 11:50 WBC 9.2 (4.8-10.8) X10*3/uL RBC 5.16 (4.20-5.50) X10*6/uL Hgb 13.1 (12.0-16.0) g/dl Hct 39.6 (37.0-47.0) % MCV 76.7 L (80.0-98.0) fL MCH 25.4 L (27.0-33.0) pg MCHC 33.1 (31.0-35.0) g/dl RDW 12.8 (11.0-16.0) % Plt Count 299 D (160-400) X10*3/uL MPV 9.6 (9.4-12.3) fL Immature Gran % (Auto) 0.3 (0.0-0.4) % Neut % (Auto) 54.4 (45-73) % Lymph % (Auto) 36.8 (20-40) % Perkins % (Auto) 8.1 (2-11) % Eos % (Auto) 0.2 (0-4) % Baso % (Auto) 0.2 (0-2) % Lymph # (Auto) 3.4 (1.2-4.9) X10*3/uL Perkins # (Auto) 0.7 (0.1-1.2) X10*3/uL Eos # (Auto) 0.0 (0.0-0.4) X10*3/uL Baso # (Auto) 0.0 (0.0-0.2) X10*3/uL Abs Immat Gran (auto) 0.03 (0.00-0.03) X10*3/uL Absolute Neuts (auto) 5.0 (2.0-8.3) x10*3/uL Absolute Nucleated RBC 0.000 (0.0-0.012) X10*3/uL Nucleated RBC % (auto) 0.0 (0.0-0.2) /100WBC PT (10.0-13.1) SEC INR (0.9-1.1) APTT (26.0-36.4) SEC Sodium 140 (135-145) mmol/L Potassium 4.4 (3.3-5.1) mmol/L Chloride 105 (96-108) mmol/L Carbon Dioxide 24 (22-29) mmol/L Anion Gap 15 (12-20) BUN 10 (9-16) mg/dL Creatinine 0.63 (0.5-1.4) mg/dL Estim Creat Clear Calc 138.5 Estimated GFR > 60 Random Glucose 96 (60-115) mg/dL Calcium 9.4 (8.4-10.2) mg/dL Magnesium 2.3 (1.6-2.6) mg/dL Total Bilirubin 0.2 (0.0-1.0) mg/dL Direct Bilirubin < 0.2 (0.0-0.5) mg/dL AST 10 D (5-31) U/L ALT 8 (0-31) U/L Alkaline Phosphatase 101 D (39-117) U/L Total Protein 7.7 D (6.5-8.0) g/dL Albumin 4.2 D (3.5-5.0) g/dL COVID-19 (SUPA) Negative (Negative) COVID-19 Clin Com See Note Monoscreen (Negative) 07/05/22 07/05/22 Range/Units 11:50 11:50 WBC (4.8-10.8) X10*3/uL RBC (4.20-5.50) X10*6/uL Hgb (12.0-16.0) g/dl Hct (37.0-47.0) % MCV (80.0-98.0) fL MCH (27.0-33.0) pg MCHC (31.0-35.0) g/dl RDW (11.0-16.0) % Plt Count (160-400) X10*3/uL MPV (9.4-12.3) fL Immature Gran % (Auto) (0.0-0.4) % Neut % (Auto) (45-73) % Lymph % (Auto) (20-40) % Perkins % (Auto) (2-11) % Eos % (Auto) (0-4) % Baso % (Auto) (0-2) % Lymph # (Auto) (1.2-4.9) X10*3/uL Perkins # (Auto) (0.1-1.2) X10*3/uL Eos # (Auto) (0.0-0.4) X10*3/uL Baso # (Auto) (0.0-0.2) X10*3/uL Abs Immat Gran (auto) (0.00-0.03) X10*3/uL Absolute Neuts (auto) (2.0-8.3) x10*3/uL Absolute Nucleated RBC (0.0-0.012) X10*3/uL Nucleated RBC % (auto) (0.0-0.2) /100WBC PT 11.5 (10.0-13.1) SEC INR 1.0 (0.9-1.1) APTT 26.8 (26.0-36.4) SEC Sodium (135-145) mmol/L Potassium (3.3-5.1) mmol/L Chloride (96-108) mmol/L Carbon Dioxide (22-29) mmol/L Anion Gap (12-20) BUN (9-16) mg/dL Creatinine (0.5-1.4) mg/dL Estim Creat Clear Calc Estimated GFR Random Glucose (60-115) mg/dL Calcium (8.4-10.2) mg/dL Magnesium (1.6-2.6) mg/dL Total Bilirubin (0.0-1.0) mg/dL Direct Bilirubin (0.0-0.5) mg/dL AST (5-31) U/L ALT (0-31) U/L Alkaline Phosphatase (39-117) U/L Total Protein (6.5-8.0) g/dL Albumin (3.5-5.0) g/dL COVID-19 (SUPA) (Negative) COVID-19 Clin Com Monoscreen Negative (Negative) Critical Care Time Critical Care Time Critical Care Time: No Discharge Plan Discharge Clinical Impression: Bronchitis, Trichomonas infection Patient Disposition: Home, Self-Care Instructions: Trichomoniasis (ED), Acute Bronchitis (ED) Additional Instructions: Your lab workup was unremarkable. Urine negative for COVID-19. Your x-ray does not show any evidence of pneumonia. Take the prescribed azithromycin as directed to treat bronchitis. Use the prescribed inhaler as needed for shortness of breath. Recommend [id number] cough medication as needed for your cough. Recommend [id number] Chloraseptic spray & Cepacol lozenges as needed for your sore throat. take the prescribed metronidazole to treat your Trichomonas. Recommend taking Zofran prior to taking this. This should be taken with food. Do not drink alcohol while your on this antibiotic, can make you very ill. Follow-up with her primary care doctor this week. If you develop new or worsening symptoms call 911 or come back to the ER for further evaluation. Prescriptions: New azithromycin [Zithromax Z-Rajat] 250 mg tablet See Rx Instructions .ROUTE .COMPLEX Qty: 6 0RF Rx Instructions: take 500 mg today (day 1), then 250 mg for 4 days (days 2-5) ondansetron 4 mg tablet,disintegrating 4 mg PO Q6-8H PRN (Reason: nausea and vomiting) Qty: 10 0RF metronidazole 500 mg tablet 500 mg PO BID 7 Days Qty: 14 0RF albuterol sulfate 90 mcg/actuation HFA aerosol inhaler 1 inh inhalation QID PRN (Reason: shortness of breath or wheezing) Qty: 6.7 0RF No Action atomoxetine 80 mg capsule 1 cap PO QAM Vraylar 1.5 mg capsule 1 cap PO DAILY divalproex 250 mg tablet extended release 24 hr 1,250 mg PO QAM Vraylar 6 mg capsule 1 cap PO QAM Stand Alone Forms: Work/School Release
[2022-07-05 12:11] LABS: Partial Thromboplastin Time 26.8 SEC (26.0-36.4)
[2022-07-05 12:13] LABS: Alanine Aminotransferase 8 U/L (0-31); Albumin Level 4.2 g/dL (3.5-5.0); Alkaline Phosphatase 101 U/L (39-117); Anion Gap 15 (12-20); Aspartate Amino Transferase 10 U/L (5-31); Bilirubin Direct < 0.2 mg/dL (0.0-0.5); Bilirubin Total 0.2 mg/dL (0.0-1.0); Blood Urea Nitrogen 10 mg/dL (9-16); Calcium 9.4 mg/dL (8.4-10.2); Carbon Dioxide 24 mmol/L (22-29); Chloride 105 mmol/L (96-108); Creatinine Clr Calc Pharmacy 138.5; Estimated Glomerular Filt Rate > 60; Glucose Random 96 mg/dL (60-115); Magnesium 2.3 mg/dL (1.6-2.6); Potassium 4.4 mmol/L (3.3-5.1); Sodium 140 mmol/L (135-145); Total Protein 7.7 g/dL (6.5-8.0)
[2022-07-05] MEDS: guaiFEN/Codeine SF 200/20/10ML 10 ML LIQUID PO (12:35)
--- NOTE | 2022-07-05 12:38 | PC.NURSE ---
pt a&o, pt had labs drawn by tech, pt refused IV, refused medications except cough medication, pt refusing to answer questions and is tearful at this time.
[2022-07-05 13:03] LABS: Monotest Negative (Negative)
[2022-07-05 14:05] VITALS: BP 106/60; PULSE 66; RESP 14; O2SAT 92
== END 2022-07-05 14:36 | disposition home or self-care (01) ==
PROVIDERS: Physician Assistant; Emergency Provider Student in an Organized Health Care Education/Training Program
DX: J40 Bronchitis, not specified as acute or chronic (principal); A59.9 Trichomoniasis, unspecified; Z20.822 Contact with and (suspected) exposure to COVID-19; J02.9 Acute pharyngitis, unspecified; R51.9 Headache, unspecified; F17.200 Nicotine dependence, unspecified, uncomplicated; F12.90 Cannabis use, unspecified, uncomplicated
CPT/HCPCS: 36415; 71046; 80048; 80076; 83735; 85025; 85610; 85730; 86308; 87635; 99284

== ENCOUNTER 2022-07-31 20:18 | Emergency (ER) | payer OTHER, SELFPAY ==
[2022-07-31 20:20] VITALS: BP 157/86; PULSE 102; RESP 21; TEMP 36.7; O2SAT 99; BMI 41.0
== END 2022-08-01 01:43 | disposition left against medical advice (07) ==
LOC: HO.ED 08-01 01:13
PROVIDERS: Emergency Provider Emergency Medicine
DX: R06.02 Shortness of breath (principal)
CPT/HCPCS: 99281

== ENCOUNTER 2022-09-25 13:00 | Emergency (ER) | payer OTHER, SELFPAY ==
[2022-09-25 13:34] VITALS: BP 119/83; PULSE 99; RESP 18; TEMP 36.6; O2SAT 100; BMI 41.0
--- NOTE | 2022-09-25 13:41 | ED.GENADULT ---
HPI - General Adult General Chief complaint: General Medical Stated complaint: STD check Related Data Home Medications Medication Instructions Recorded Confirmed cariprazine 6 mg capsule (Vraylar) 1 cap PO QAM 01/27/22 01/21/23 cariprazine 1.5 mg capsule 1 cap PO DAILY 02/11/22 01/21/23 (Vraylar) divalproex 250 mg tablet,extended 500 mg PO TID 01/21/23 01/25/23 release 24 hr (Depakote ER) lorazepam 0.5 mg tablet 0.5 mg PO DAILY PRN Anxiety 01/21/23 01/21/23 atomoxetine 60 mg capsule 60 mg PO DAILY 01/24/23 01/24/23 Previous Rx's Medication Instructions Recorded divalproex 250 mg tablet,extended 1,750 mg PO DAILY 2 weeks #98 tabs 01/28/23 release 24 hr (Depakote ER) Allergies Allergy/AdvReac Type Severity Reaction Status Date / Time lithium [LITHIUM] Allergy Intermediate HIVES Verified 01/14/23 17:34 nicotine [From NICODERM CQ] Allergy Unknown HIVES FROM Verified 01/14/23 17:34 THE PATCH onion Allergy Throat Verified 01/21/23 15:04 lico [facility] Past Medical History Medical History Anxiety Bipolar 1 disorder Depression Fibromyalgia Mental health disorder Tremor of both hands Surgical History H/O brain surgery Social History Social History Household Members: None Housing: Apartment Alcohol intake: unknown Patient Tobacco Use Status: Current everyday Tobacco user Tobacco use type: Cigarette Cigarettes Per Day: 10 Years Smoked: 15 Patient Interested in Nicotine Replacement: No (Allergies to nicotine products.) Patient Given Instructions on How to Stop Smoking: No Substance Use Type: Marijuana Do you have thoughts of harming others: None Physical Exam ED Vital Signs: Vital Signs - 24 hr 09/25/22 13:34 Temperature 97.9 F Pulse Rate 99 Respiratory Rate 18 Blood Pressure 119/83 Pulse Oximetry 100 Oxygen Delivery Method Room Air BMI result Body Mass Index 41.0 Course Reevaluation(s) Reevaluation #1: Patient presents here to the ED for STD evaluation. States in contact with someone who tested positive for Trichomonas. However, patient refused to stay for evaluation, as she has to be at work in 1 hour and 15 minutes. Time: 13:46 Discharge Plan Discharge Clinical Impression: Concern about STD in female without diagnosis Patient Disposition: Elopement Prescriptions: No Action Vraylar 1.5 mg capsule 1 cap PO DAILY Vraylar 6 mg capsule 1 cap PO QAM divalproex [Depakote ER] 250 mg Tablet Extended Release 24 Hr 500 mg PO TID Rx Instructions: Take 500 mg TID with an additional 250 mg tab in the morning for a total dose of 1750 mg. lorazepam 0.5 mg Tablet 0.5 mg PO DAILY PRN (Reason: Anxiety) atomoxetine 60 mg Capsule 60 mg PO DAILY divalproex [Depakote ER] 250 mg tablet extended release 24 hr 1,750 mg PO DAILY 14 Days Qty: 98 1RF Nexplanon 68 mg implant 1 implant subdermal ONCE Qty: 1 0RF Discharge Date/Time: 09/25/22 15:20
== END 2022-09-25 15:20 | disposition left against medical advice (07) ==
PROVIDERS: Emergency Provider Emergency Medicine
DX: Z20.2 Contact with and (suspected) exposure to infections with a predominantly sexual mode of transmission (principal); Z79.899 Other long term (current) drug therapy; F17.200 Nicotine dependence, unspecified, uncomplicated; Z71.6 Tobacco abuse counseling
CPT/HCPCS: 99281

== ENCOUNTER 2022-10-13 23:50 | Emergency (ER) | payer OTHER, SELFPAY ==
[2022-10-13 23:52] VITALS: BP 127/79; PULSE 93; RESP 18; TEMP 36.4; O2SAT 97; BMI 41.0
--- NOTE | 2022-10-14 00:38 | ED.SKABFB ---
HPI - Skin/Abscess/Foreign Bdy General Chief complaint: Skin/Abscess/Foreign Body Stated complaint: not feeling well, vaginal abscess Time Seen by Provider: 10/14/22 00:32 Source: patient Mode of arrival: ambulatory Limitations: no limitations History of Present Illness HPI narrative: comes in the emergency room complaining of a Bartholin's cyst growing on the Leftside of the labia. Patient states that 2 days ago she noticed a pimple, popped and started draining. however, patient states that over the last couple of days the abscess has been growing and becoming more painful. Patient denies fever chills Related Data Home Medications Medication Instructions Recorded Confirmed cariprazine 6 mg capsule (Vraylar) 1 cap PO QAM 01/27/22 02/11/22 atomoxetine 80 mg capsule 1 cap PO QAM 02/11/22 02/11/22 cariprazine 1.5 mg capsule 1 cap PO DAILY 02/11/22 02/11/22 (Vraylar) divalproex 250 mg tablet,extended 1,250 mg PO QAM 02/11/22 02/11/22 release 24 hr Previous Rx's Medication Instructions Recorded albuterol sulfate 90 mcg/actuation 1 inh inhalation QID PRN shortness 07/05/22 aerosol inhaler of breath or wheezing #6.7 grams azithromycin 250 mg tablet See Rx Instructions PO .COMPLEX #6 07/05/22 (Zithromax Z-Rajat) tabs metronidazole 500 mg tablet 500 mg PO BID 7 days #14 tabs 07/05/22 ondansetron 4 mg disintegrating 4 mg PO Q6-8H PRN nausea and 07/05/22 tablet vomiting #10 tabs cephalexin 500 mg capsule 500 mg PO BID #14 caps 10/14/22 doxycycline hyclate 100 mg capsule 100 mg PO BID #14 caps 10/14/22 oxycodone 5 mg capsule 5 mg PO BID PRN pain #6 caps 10/14/22 Allergies Allergy/AdvReac Type Severity Reaction Status Date / Time lithium [LITHIUM] Allergy Intermediate HIVES Verified 10/13/22 23:52 nicotine [From NICODERM ] Allergy Unknown HIVES FROM Verified 10/13/22 23:52 THE PATCH Review of Systems Review of Systems: Constitutional : No Weight loss, No Fever, No Chills, No Night Sweats, No Fatigue, No Malaise ENT/Mouth : No Hearing loss, No Ear Pain, No Nasal Congestion, No Sinus Pain, No Hoarseness, No sore throat, No Rhinorrhea, No Swallowing Difficulty Eyes: No Eye Pain, No Swelling, No Redness, No Foreign Body, No Discharge, No Vision Changes Cardiovascular : No Chest Pain, No SOB, No Dyspnea on Exertion, No Orthopnea, No Edema, No Palpitations Respiratory : No Cough, No Sputum, No Wheezing, No Smoke Exposure, No Dyspnea Gastrointestinal : No Nausea, No Vomiting, No Diarrhea, No Constipation, No abdominal Pain, No Hematochezia, No Melena Genitourinary : no irregular bleeding, No Dysuria, No Urinary Frequency, No Hematuria, No Urinary Incontinence, No Urgency, No Flank Pain, No Urinary Flow Changes, No Hesitancy Musculoskeletal : No joint pain, No Myalgias, No Joint Swelling Skin : complaining of an abscess in the left labia majora Neuro : No Weakness, No Numbness, No Paresthesias, No Loss of Consciousness, No Dizziness, No Headache Psych : No Anxiety/Panic, No Depression, No SI/HI/AH/VH, No Social Issues, Heme/Lymph: No Bruising, No Bleeding,No Lymphadenopathy Endocrine : No Polyuria, No Polydipsia, No Temperature Intolerance PMFSH Past Medical History Medical History Anxiety Bipolar 1 disorder Depression Fibromyalgia Mental health disorder Social History Social History Alcohol intake: unknown Patient Tobacco Use Status: Current everyday Tobacco user Substance Use Type: Marijuana Advance Directives: No Advance Directives Information Provided: No Physical Exam Vital Signs: Vital Signs: Last Vital Signs Temp 97.9 F 10/14/22 02:07 Pulse 79 10/14/22 02:07 Resp 18 10/13/22 23:52 BP 108/63 10/14/22 02:07 Pulse Ox 96 10/14/22 02:07 O2 Del Method 10/14/22 02:07 BMI result Body Mass Index 41.0 Course Course Course Narrative: discussed with the patient that the abscess is ideally needs to be drained before it becomes any larger. Patient agrees with plan. We will go ahead and inject with lidocaine and do an incision and drainage. Patient agrees plan. Patient given p.o. cephalexin, doxycycline and oxycodone Bartholin Abscess was infiltrated with 7 cc of lidocaine, monitored amount of pus was extracted, packing placed. Medications Administered Discontinued Medications Generic Name Dose Route Start Last Admin Trade Name Freq PRN Reason Stop Dose Admin Cephalexin HCl 500 mg 10/14/22 00:37 10/14/22 00:54 Cephalexin 500 Mg Capsule PO 10/14/22 00:38 500 mg ONCE ONE Administration Doxycycline Monohydrate 100 mg 10/14/22 00:37 10/14/22 00:53 Doxycycline Monohydrate 100 Mg Capsule PO 10/14/22 00:38 100 mg ONCE ONE Administration Oxycodone HCl 10 mg 10/14/22 00:37 10/14/22 00:54 Oxycodone Hcl Immed Release 5 Mg Tablet PO 10/14/22 00:38 10 mg ONCE ONE Administration Discharge Plan Discharge Clinical Impression: Abscess of Bartholin's gland Patient Disposition: Home, Self-Care Instructions: Bartholin Cyst (ED), Incision and Drainage (ED) Additional Instructions: Please follow-up with your primary care physician tomorrow. If you have any worsening or new symptoms, please return to the emergency room or call 911 Prescriptions: New doxycycline hyclate 100 mg capsule 100 mg PO BID Qty: 14 0RF cephalexin 500 mg capsule 500 mg PO BID Qty: 14 0RF oxycodone 5 mg capsule 5 mg PO BID PRN (Reason: pain) Qty: 6 0RF Rx Instructions: Partial Fill upon patient request. No Action atomoxetine 80 mg capsule 1 cap PO QAM Vraylar 1.5 mg capsule 1 cap PO DAILY divalproex 250 mg tablet extended release 24 hr 1,250 mg PO QAM Vraylar 6 mg capsule 1 cap PO QAM azithromycin [Zithromax Z-Rajat] 250 mg tablet See Rx Instructions .ROUTE .COMPLEX Qty: 6 0RF Rx Instructions: take 500 mg today (day 1), then 250 mg for 4 days (days 2-5) ondansetron 4 mg tablet,disintegrating 4 mg PO Q6-8H PRN (Reason: nausea and vomiting) Qty: 10 0RF metronidazole 500 mg tablet 500 mg PO BID 7 Days Qty: 14 0RF albuterol sulfate 90 mcg/actuation HFA aerosol inhaler 1 inh inhalation QID PRN (Reason: shortness of breath or wheezing) Qty: 6.7 0RF
[2022-10-14] MEDS: Doxycycline Monohydrate 100 MG CAPSULE PO (00:53)
[2022-10-14] MEDS: cephALEXin 500 MG CAPSULE PO (00:54)
[2022-10-14] MEDS: oxyCODONE HCl Immed Release 5 MG TABLET 10 MG PO (00:54)
[2022-10-14 01:09] VITALS: BP 117/62; PULSE 84; TEMP 36.6; O2SAT 98
[2022-10-14 01:59] LABS: Influenza A PCR NEGATIVE (Negative); Influenza B PCR NEGATIVE (Negative); Resp Syncy Virus RNA Qual PCR NEGATIVE (Negative); SARS COV2 PCR INHOUSE NEGATIVE (Negative)
[2022-10-14 02:07] VITALS: BP 108/63; PULSE 79; TEMP 36.6; O2SAT 96
[2022-10-14 03:20] LABS: Appearance Urine Clear; Color Urine Dark Yellow; Glucose Urine UA Negative (Negative); Leukocyte Esterase Urine Trace (Negative); Nitrite Urine Negative (Negative); Specific Gravity - Urine >= 1.030 (1.005-1.025); UMIC TRIGGER UACC YES; Urine Blood Negative (Negative); Urine Ketones 15 mg/dL (Negative); Urine Protein Trace mg/dL (Neg-Trace)
[2022-10-14 03:22] LABS: UPreg QC Valid YES; Urine Pregnancy NEGATIVE (NEGATIVE)
[2022-10-14 03:38] LABS: Bacteria Urine None Seen (None Seen); Hyaline Casts Urine 0-2 /LPF (0-2); RBC Urine 0-2 /HPF (0-2); Squamous Epithelial Cell Urine 0-2 /HPF (0-2); WBC Urine 0-5 /HPF (0-5)
[2022-10-14] MEDS: Lidocaine HCl 2 % 20 ML VIAL INFILTRATI (04:37)
[2022-10-14 04:44] VITALS: BP 119/64; PULSE 86; TEMP 37; O2SAT 98
== END 2022-10-14 04:52 | disposition home or self-care (01) ==
PROVIDERS: Emergency Provider Emergency Medicine
DX: N75.1 Abscess of Bartholin's gland (principal); Z20.822 Contact with and (suspected) exposure to COVID-19; Z79.899 Other long term (current) drug therapy
CPT/HCPCS: 0241U; 10060; 81001; 81025; 99283

== ENCOUNTER 2022-11-09 22:54 | Emergency (ER) | payer OTHER, SELFPAY ==
--- NOTE | 2022-11-09 | ECG_ITS ---
Test Reason : DIZZINESS Blood Pressure : / mmHG Vent. Rate : 084 BPM Atrial Rate : 084 BPM P-R Int : 142 ms QRS Dur : 086 ms QT Int : 364 ms P-R-T Axes : 038 077 043 degrees QTc Int : 430 ms Normal sinus rhythm Normal ECG When compared with ECG of 27-JAN-2022 17:37, No significant change was found Referred By: Generic ED Physician Electronically Signed By:DIEGO UGZMAN
[2022-11-09 22:57] VITALS: BP 137/87; PULSE 107; RESP 22; TEMP 36.8; O2SAT 98; BMI 41.0
[2022-11-09 23:23] VITALS: BP 131/85; PULSE 91; RESP 19; TEMP 36.9; O2SAT 100
[2022-11-09 23:43] LABS: Basophils Percent Auto 0.3 % (0-2); Eosinophils Percent Auto 0.4 % (0-4); Hematocrit 38.6 % (37.0-47.0); Hemoglobin 12.8 g/dl (12.0-16.0); Imm Gran Abs Auto 0.01 X10*3/uL (0.00-0.03); Imm Gran Pct Auto 0.1 % (0.0-0.4); Lymphocytes Absolute Auto 5.3 X10*3/uL (1.2-4.9); Lymphocytes Percent Auto 57.2 % (20-40); MANUAL DIFF FLAG SCAN; Mean Corpuscular HGB Conc 33.2 g/dl (31.0-35.0); Mean Corpuscular Hemoglobin 25.6 pg (27.0-33.0); Mean Corpuscular Volume 77.2 fL (80.0-98.0); Mean Platelet Volume 10.2 fL (9.4-12.3); Monocytes Absolute Auto 0.8 X10*3/uL (0.1-1.2); Monocytes Percent Auto 8.1 % (2-11); Neutrophils Absolute Auto 3.1 x10*3/uL (2.0-8.3); Neutrophils Percent Auto 33.9 % (45-73); Platelet Count 219 X10*3/uL (160-400); SCAN SMEAR FLAG 1; White Blood Count 9.3 X10*3/uL (4.8-10.8)
[2022-11-10 00:04] LABS: Alanine Aminotransferase 11 U/L (0-31); Alkaline Phosphatase 94 U/L (39-117); Anion Gap 16 (12-20); Aspartate Amino Transferase 19 U/L (5-31); Bilirubin Total 0.3 mg/dL (0.0-1.0); Blood Urea Nitrogen 11 mg/dL (9-16); Calcium 9.3 mg/dL (8.4-10.2); Carbon Dioxide 23 mmol/L (22-29); Chloride 106 mmol/L (96-108); Creatinine Clr Calc Pharmacy 134.2; Estimated Glomerular Filt Rate > 60; Glucose Random 96 mg/dL (60-115); Potassium 4.7 mmol/L (3.3-5.1); Sodium 140 mmol/L (135-145); Total Protein 7.4 g/dL (6.5-8.0)
[2022-11-10 00:13] LABS: SLIDE REVIEW VERIFIED
[2022-11-10 00:58] LABS: Appearance Urine Clear; Color Urine Yellow; Glucose Urine UA Negative (Negative); Leukocyte Esterase Urine Trace (Negative); Nitrite Urine Negative (Negative); Specific Gravity - Urine >= 1.030 (1.005-1.025); UMIC TRIGGER UACC YES; Urine Blood Negative (Negative); Urine Ketones Trace mg/dL (Negative); Urine Protein Trace mg/dL (Neg-Trace)
[2022-11-10 01:04] LABS: Valproate 85.6 mcg/mL (50.0-100.0)
--- NOTE | 2022-11-10 01:08 | ED.GENADULT ---
HPI - General Adult General Chief complaint: General Medical Stated complaint: Dizziness Time Seen by Provider: 11/09/22 23:49 Source: patient Mode of arrival: ambulatory History of Present Illness HPI narrative: 27-year-old female presents with complaints of dizziness and states that when she feels dizzy she will then have visual hallucinations and today saw aunts running across her plate while she was having dinner with a friend of hers. She denies any alcohol or illicit drug use. And denies any recent fever, chills, nausea, vomiting, urinary symptoms and is currently on the Nexplanon for control. Patient denies any sore throat but is having a cough. Related Data Home Medications Medication Instructions Recorded Confirmed cariprazine 6 mg capsule (Vraylar) 1 cap PO QAM 01/27/22 02/11/22 atomoxetine 80 mg capsule 1 cap PO QAM 02/11/22 02/11/22 cariprazine 1.5 mg capsule 1 cap PO DAILY 02/11/22 02/11/22 (Vraylar) divalproex 250 mg tablet,extended 1,250 mg PO QAM 02/11/22 02/11/22 release 24 hr Previous Rx's Medication Instructions Recorded albuterol sulfate 90 mcg/actuation 1 inh inhalation QID PRN shortness 07/05/22 aerosol inhaler of breath or wheezing #6.7 grams azithromycin 250 mg tablet See Rx Instructions PO .COMPLEX #6 07/05/22 (Zithromax Z-Rajat) tabs metronidazole 500 mg tablet 500 mg PO BID 7 days #14 tabs 07/05/22 ondansetron 4 mg disintegrating 4 mg PO Q6-8H PRN nausea and 07/05/22 tablet vomiting #10 tabs cephalexin 500 mg capsule 500 mg PO BID #14 caps 10/14/22 doxycycline hyclate 100 mg capsule 100 mg PO BID #14 caps 10/14/22 oxycodone 5 mg capsule 5 mg PO BID PRN pain #6 caps 10/14/22 Allergies Allergy/AdvReac Type Severity Reaction Status Date / Time lithium [LITHIUM] Allergy Intermediate HIVES Verified 10/13/22 23:52 nicotine [From NICODERM ] Allergy Unknown HIVES FROM Verified 10/13/22 23:52 THE PATCH Review of Systems Review of Systems: Pertinent positives and negatives as stated in HPI. [facility] Past Medical History Source: nursing notes reviewed Medical History Anxiety Bipolar 1 disorder Depression Fibromyalgia Mental health disorder Social History Social History Alcohol intake: unknown Patient Tobacco Use Status: Current everyday Tobacco user Substance Use Type: Marijuana Advance Directives: No Advance Directives Information Provided: No Physical Exam ED Vital Signs: Vital Signs - 24 hr 11/09/22 22:57 11/09/22 23:23 11/10/22 01:36 Temperature 98.3 F 98.4 F Pulse Rate 107 H 91 94 Respiratory Rate 22 H 19 Blood Pressure 137/87 131/85 118/66 Pulse Oximetry 98 100 Oxygen Delivery Method Room Air Room Air 11/10/22 01:37 11/10/22 01:38 Temperature Pulse Rate 101 H 85 Respiratory Rate Blood Pressure 118/62 112/53 L Pulse Oximetry Oxygen Delivery Method BMI result Body Mass Index 41.0 VITAL SIGNS: Reviewed. GENERAL: Well developed, well nourished, in no acute distress. HEAD: Normocephalic/atraumatic EYES: PERRLA, EOMI EARS: RIGHT- Ext canals without abnormality, TMs bulging, dull, appears to be purulence within the middle ear; LEFT-Ext canals without abnormality, TMs non-bulging and non-erythematous NOSE: Nares patent bilateral OROPHARYNX: no oral lesions noted, posterior pharynx clear and non-erythematous without noted tonsillar enlargement/erythema/exudates NECK: Supple, no adenopathy LUNGS: Normal breath sounds. No adventitious sounds or accessory muscle use. SpO2<98> CARDIOVASCULAR: Regular rate and rhythm without noted murmurs ABDOMEN: Soft, non-tender, non-distended with bowel sounds. MUSCULOSKELETAL: No tenderness, deformities, or effusions noted on gross inspection. EXTREMITIES: No cyanosis, clubbing or edema. SKIN: Inspection of the skin reveals no rashes NEUROLOGIC: Alert and oriented x 4. Strength and sensation to light touch were grossly intact x 4. Medical Decision Making Medical Decision Making MDM Narrative: 27-year-old female with dizziness that it is not associated with constitutional symptoms as well as visual hallucinations for which she denies any drug use and although she reports right flank pain there is no tenderness on palpation and no urinary symptoms. Patient had endorse that she typically feels like this when she has not been drinking enough water (she states she hates water). On review and interpretation of patient's lab results there is no evidence to suggest infection or electrolyte/renal dysfunction. There were no focal deficits to better explain patient's presentation and then patient precipitously walked out. Differential Diagnosis Differential Diagnoses: The differential diagnosis associated with the presentation includes I, anemia, arrhythmia, hypovolemia, possible AOM Lab Data MDM Lab Attestation statement: I reviewed the patient's lab results. Please see the discussion above 11/09/22 23:37 11/09/22 23:37 Labs: Lab Results 11/09/22 11/09/22 11/09/22 Range/Units 23:37 23:37 23:37 WBC 9.3 (4.8-10.8) X10*3/uL RBC 5.00 (4.20-5.50) X10*6/uL Hgb 12.8 (12.0-16.0) g/dl Hct 38.6 (37.0-47.0) % MCV 77.2 L (80.0-98.0) fL MCH 25.6 L (27.0-33.0) pg MCHC 33.2 (31.0-35.0) g/dl RDW 13.0 (11.0-16.0) % Plt Count 219 D (160-400) X10*3/uL MPV 10.2 (9.4-12.3) fL Immature Gran % (Auto) 0.1 (0.0-0.4) % Neut % (Auto) 33.9 L (45-73) % Lymph % (Auto) 57.2 H (20-40) % [place] % (Auto) 8.1 (2-11) % Eos % (Auto) 0.4 (0-4) % Baso % (Auto) 0.3 (0-2) % Lymph # (Auto) 5.3 H (1.2-4.9) X10*3/uL [place] # (Auto) 0.8 (0.1-1.2) X10*3/uL Eos # (Auto) 0.0 (0.0-0.4) X10*3/uL Baso # (Auto) 0.0 (0.0-0.2) X10*3/uL Abs Immat Gran (auto) 0.01 (0.00-0.03) X10*3/uL Absolute Neuts (auto) 3.1 (2.0-8.3) x10*3/uL Absolute Nucleated RBC 0.000 (0.0-0.012) X10*3/uL Nucleated RBC % (auto) 0.0 (0.0-0.2) /100WBC Smear Tech's Comments VERIFIED Sodium 140 (135-145) mmol/L Potassium 4.7 (3.3-5.1) mmol/L Chloride 106 (96-108) mmol/L Carbon Dioxide 23 (22-29) mmol/L Anion Gap 16 (12-20) BUN 11 (9-16) mg/dL Creatinine 0.65 (0.5-1.4) mg/dL Estim Creat Clear Calc 134.2 Estimated GFR > 60 Random Glucose 96 (60-115) mg/dL Calcium 9.3 (8.4-10.2) mg/dL Total Bilirubin 0.3 (0.0-1.0) mg/dL AST 19 D (5-31) U/L ALT 11 (0-31) U/L Alkaline Phosphatase 94 (39-117) U/L Total Protein 7.4 (6.5-8.0) g/dL Albumin 4.0 (3.5-5.0) g/dL Urine Color Urine Appearance Urine pH (5.0-9.0) Ur Specific [place] (1.005-1.025) Urine Protein (Neg-Trace) mg/dL Urine Glucose (UA) (Negative) mg/dL Urine Ketones (Negative) mg/dL Urine Blood (Negative) Urine Nitrite (Negative) Ur Leukocyte Esterase (Negative) Urine RBC (0-2) /HPF Urine WBC (0-5) /HPF Ur Squamous Epith Cells (0-2) /HPF Urine Bacteria (None Seen) Hyaline Casts (0-2) /LPF Valproic Acid 85.6 (50.0-100.0) mcg/mL 11/10/22 Range/Units 00:47 WBC (4.8-10.8) X10*3/uL RBC (4.20-5.50) X10*6/uL Hgb (12.0-16.0) g/dl Hct (37.0-47.0) % MCV (80.0-98.0) fL MCH (27.0-33.0) pg MCHC (31.0-35.0) g/dl RDW (11.0-16.0) % Plt Count (160-400) X10*3/uL MPV (9.4-12.3) fL Immature Gran % (Auto) (0.0-0.4) % Neut % (Auto) (45-73) % Lymph % (Auto) (20-40) % [place] % (Auto) (2-11) % Eos % (Auto) (0-4) % Baso % (Auto) (0-2) % Lymph # (Auto) (1.2-4.9) X10*3/uL [place] # (Auto) (0.1-1.2) X10*3/uL Eos # (Auto) (0.0-0.4) X10*3/uL Baso # (Auto) (0.0-0.2) X10*3/uL Abs Immat Gran (auto) (0.00-0.03) X10*3/uL Absolute Neuts (auto) (2.0-8.3) x10*3/uL Absolute Nucleated RBC (0.0-0.012) X10*3/uL Nucleated RBC % (auto) (0.0-0.2) /100WBC Smear Tech's Comments Sodium (135-145) mmol/L Potassium (3.3-5.1) mmol/L Chloride (96-108) mmol/L Carbon Dioxide (22-29) mmol/L Anion Gap (12-20) BUN (9-16) mg/dL Creatinine (0.5-1.4) mg/dL Estim Creat Clear Calc Estimated GFR Random Glucose (60-115) mg/dL Calcium (8.4-10.2) mg/dL Total Bilirubin (0.0-1.0) mg/dL AST (5-31) U/L ALT (0-31) U/L Alkaline Phosphatase (39-117) U/L Total Protein (6.5-8.0) g/dL Albumin (3.5-5.0) g/dL Urine Color Yellow Urine Appearance Clear Urine pH 7.0 (5.0-9.0) Ur Specific [place] >= 1.030 H (1.005-1.025) Urine Protein Trace (Neg-Trace) mg/dL Urine Glucose (UA) Negative (Negative) mg/dL Urine Ketones Trace (Negative) mg/dL Urine Blood Negative (Negative) Urine Nitrite Negative (Negative) Ur Leukocyte Esterase Trace H (Negative) Urine RBC 0-2 (0-2) /HPF Urine WBC 6-10 H (0-5) /HPF Ur Squamous Epith Cells >20 (0-2) /HPF Urine Bacteria 4+ (None Seen) Hyaline Casts 0-2 (0-2) /LPF Valproic Acid (50.0-100.0) mcg/mL Independent Interpretation I performed an independent interpretation of an: EKG Interpretation: Normal sinus rhythm, HR-84, no STEMI, GA/QRS/QTC are within normal limits. Discharge Plan Discharge Clinical Impression: Dizziness Patient Disposition: Elopement Prescriptions: No Action atomoxetine 80 mg capsule 1 cap PO QAM Vraylar 1.5 mg capsule 1 cap PO DAILY divalproex 250 mg tablet extended release 24 hr 1,250 mg PO QAM doxycycline hyclate 100 mg capsule 100 mg PO BID Qty: 14 0RF cephalexin 500 mg capsule 500 mg PO BID Qty: 14 0RF oxycodone 5 mg capsule 5 mg PO BID PRN (Reason: pain) Qty: 6 0RF Rx Instructions: Partial Fill upon patient request. Vraylar 6 mg capsule 1 cap PO QAM azithromycin [Zithromax Z-Rajat] 250 mg tablet See Rx Instructions .ROUTE .COMPLEX Qty: 6 0RF Rx Instructions: take 500 mg today (day 1), then 250 mg for 4 days (days 2-5) ondansetron 4 mg tablet,disintegrating 4 mg PO Q6-8H PRN (Reason: nausea and vomiting) Qty: 10 0RF metronidazole 500 mg tablet 500 mg PO BID 7 Days Qty: 14 0RF albuterol sulfate 90 mcg/actuation HFA aerosol inhaler 1 inh inhalation QID PRN (Reason: shortness of breath or wheezing) Qty: 6.7 0RF
[2022-11-10 01:10] LABS: Bacteria Urine 4+ (None Seen); Hyaline Casts Urine 0-2 /LPF (0-2); RBC Urine 0-2 /HPF (0-2); Squamous Epithelial Cell Urine >20 /HPF (0-2); UACC Culture Trigger YES
[2022-11-10 01:36] VITALS: BP 118/66; PULSE 94
[2022-11-10 01:37] VITALS: BP 118/62; PULSE 101
[2022-11-10 01:38] VITALS: BP 112/53; PULSE 85
--- NOTE | 2022-11-10 02:13 | PC.NURSE ---
Pt being verbally abusive to RN and staff. Security and provider aware.
--- NOTE | 2022-11-10 02:29 | PC.NURSE ---
pt became verbally abusive and hostile toward staff. pt stated that she does not want a roommate because she hasnt slept for 3 days. this RN explained to her, that unfortunately is a shared room and the pt needs it pt began swearing. pt stated that she is leaving. pt elope, pt let with no IV. pt took all her belonging. chief operations officer nurse came to bedside
== END 2022-11-10 02:33 | disposition left against medical advice (07) ==
PROVIDERS: Emergency Provider Student in an Organized Health Care Education/Training Program
DX: R42 Dizziness and giddiness (principal); R44.1 Visual hallucinations; F17.200 Nicotine dependence, unspecified, uncomplicated; Z71.6 Tobacco abuse counseling; Z79.899 Other long term (current) drug therapy
CPT/HCPCS: 36415; 80053; 80164; 81001; 85025; 87086; 93005; 99283; 99284

== ENCOUNTER → 2022-11-27 08:43 | Outpatient (BNVA) | payer OTHER, SELFPAY | PROVIDERS: Visit Provider Obstetrics & Gynecology | DX: Z30.09 Encounter for other general counseling and advice on contraception (principal) | CPT/HCPCS: 99212 ==

== ENCOUNTER 2022-12-05 08:03 | Outpatient (REF) | payer OTHER, SELFPAY ==
[2022-12-05 11:24] LABS: MANUAL DIFF FLAG NO
[2022-12-05 11:45] LABS: Basophils Percent Auto 0.1 % (0-2); Eosinophils Percent Auto 0.4 % (0-4); Hematocrit 43.1 % (37.0-47.0); Imm Gran Abs Auto 0.03 X10*3/uL (0.00-0.03); Imm Gran Pct Auto 0.4 % (0.0-0.4); Lymphocytes Percent Auto 53.5 % (20-40); Mean Corpuscular HGB Conc 32.5 g/dl (31.0-35.0); Mean Corpuscular Hemoglobin 25.6 pg (27.0-33.0); Mean Corpuscular Volume 78.8 fL (80.0-98.0); Mean Platelet Volume 10.4 fL (9.4-12.3); Monocytes Absolute Auto 0.6 X10*3/uL (0.1-1.2); Monocytes Percent Auto 8.1 % (2-11); Neutrophils Absolute Auto 2.8 x10*3/uL (2.0-8.3); Neutrophils Percent Auto 37.5 % (45-73); Platelet Count 232 X10*3/uL (160-400); Red Blood Count 5.47 X10*6/uL (4.20-5.50); Red Cell Distribution Width 13.5 % (11.0-16.0); White Blood Count 7.5 X10*3/uL (4.8-10.8)
[2022-12-05 12:23] LABS: Valproate 83.1 mcg/mL (50.0-100.0)
[2022-12-05 12:36] LABS: Alanine Aminotransferase 18 U/L (0-31); Albumin Level 3.9 g/dL (3.5-5.0); Alkaline Phosphatase 110 U/L (39-117); Aspartate Amino Transferase 17 U/L (5-31); Bilirubin Direct 0.2 mg/dL (0.0-0.5); Bilirubin Total 0.6 mg/dL (0.0-1.0); Total Protein 6.8 g/dL (6.5-8.0)
== END 2022-12-05 08:04 | disposition home or self-care (01) ==
LOC: HO.HMGCLDS 08:03
PROVIDERS: PCP Student in an Organized Health Care Education/Training Program; Visit Provider Psychiatry & Neurology Psychiatry
DX: Z79.899 Other long term (current) drug therapy (principal)
CPT/HCPCS: 36415; 80076; 80164; 85025

== ENCOUNTER → 2023-01-07 12:30 | Outpatient (BNVA) | payer OTHER, MEDICAID, SELFPAY | PROVIDERS: PCP Student in an Organized Health Care Education/Training Program; Visit Provider Obstetrics & Gynecology | DX: Z30.09 Encounter for other general counseling and advice on contraception (principal) | CPT/HCPCS: 11983; 81025; J7307 ==

== ENCOUNTER 2023-01-11 12:56 | Emergency (ER) | payer OTHER, SELFPAY ==
--- NOTE | 2023-01-11 13:19 | ED.PSYCH ---
HPI - Psych General Chief Complaint: Psychiatric Symptoms <NOHEMY Bell - Last Filed: 01/11/23 13:23> Stated Complaint: crisis <NOHEMY Bell - Last Filed: 01/11/23 13:23> Time Seen by Provider: 01/11/23 13:57 <NOHEMY Bell - Last Filed: 01/11/23 13:23> Source: patient <Gail Childress NP - Last Filed: 01/11/23 17:05> Mode of arrival: ambulatory <Gail Childress NP - Last Filed: 01/11/23 17:05> Limitations: no limitations <Gail Childress NP - Last Filed: 01/11/23 17:05> History of Present Illness HPI Narrative: 27-year-old female with a history of bipolar disorder, ADHD, anxiety, depression who presents the ER with complaints of auditory hallucinations, racing thoughts for the last 3 days. Patient reports she has been he her medications as prescribed. No recent med changes. Patient denies SI, HI, physical complaints. She reports occasional marijuana use but no additional substance use. <Gail Childress NP - Last Filed: 01/11/23 17:05> Related Data Home Medications: Home Medications Medication Instructions Recorded Confirmed cariprazine 6 mg capsule (Vraylar) 1 cap PO QAM 01/27/22 02/11/22 atomoxetine 80 mg capsule 1 cap PO QAM 02/11/22 02/11/22 cariprazine 1.5 mg capsule 1 cap PO DAILY 02/11/22 02/11/22 (Vraylar) divalproex 250 mg tablet,extended 1,250 mg PO QAM 02/11/22 02/11/22 release 24 hr etonogestrel 68 mg subdermal subdermal 11/27/22 implant (Nexplanon) Previous Rx's Medication Instructions Recorded albuterol sulfate 90 mcg/actuation 1 inh inhalation QID PRN shortness 07/05/22 aerosol inhaler of breath or wheezing #6.7 grams azithromycin 250 mg tablet See Rx Instructions PO .COMPLEX #6 07/05/22 (Zithromax Z-Rajat) tabs metronidazole 500 mg tablet 500 mg PO BID 7 days #14 tabs 07/05/22 ondansetron 4 mg disintegrating 4 mg PO Q6-8H PRN nausea and 07/05/22 tablet vomiting #10 tabs cephalexin 500 mg capsule 500 mg PO BID #14 caps 10/14/22 doxycycline hyclate 100 mg capsule 100 mg PO BID #14 caps 10/14/22 oxycodone 5 mg capsule 5 mg PO BID PRN pain #6 caps 10/14/22 <NOHEMY Bell - Last Filed: 01/11/23 13:23> Allergies/Adverse Reactions: Allergies Allergy/AdvReac Type Severity Reaction Status Date / Time lithium [LITHIUM] Allergy Intermediate HIVES Verified 01/07/23 13:03 [facility] Allergy Unknown HIVES FROM Verified 01/07/23 13:03 THE PATCH <NOHEMY Bell - Last Filed: 01/11/23 13:23> Review of Systems Review of Systems: Yes all other systems are reviewed and are negative <Gail Childress NP - Last Filed: 01/11/23 17:05> Constitutional: Constitutional: Reports no additional constitutional complaints, Denies body ache(s), Denies chills, Denies fever(s), Denies headache(s) and Denies weakness <Gail Childress NP - Last Filed: 01/11/23 17:05> Eyes: Eyes: Reports no additional eye complaints and Denies change in vision <Gail Childress NP - Last Filed: 01/11/23 17:05> ENT: Reports system reviewed and no additional complaints, except as documented, Denies dizziness, Denies headache(s), Denies nasal congestion, Denies nasal discharge and Denies neck pain <Gail Childress NP - Last Filed: 01/11/23 17:05> Cardiovascular: Cardiovascular: Reports no additional cardiovascular complaints, Denies chest pain, Denies leg edema and Denies dyspnea <Gail Childress NP - Last Filed: 01/11/23 17:05> Respiratory: Respiratory: Reports no additional respiratory complaints, Denies cough and Denies dyspnea <Gail Childress NP - Last Filed: 01/11/23 17:05> Gastrointestinal: Gastrointestinal: Reports no additional gastrointestinal complaints, Denies abdominal pain, Denies diarrhea, Denies nausea and Denies vomiting <Gail Childress NP - Last Filed: 01/11/23 17:05> Genitourinary: Genitourinary: Reports no additional female genitourinary complaints and Denies urinary incontinence <Gail Childress NP - Last Filed: 01/11/23 17:05> Musculoskeletal: Musculoskeletal: Reports no additional musculoskeletal complaints, Denies back pain, Denies arthralgias, Denies joint swelling, Denies neck pain, Denies numbness and Denies tingling <Gail Childress NP - Last Filed: 01/11/23 17:05> Integumentary/Breasts: Skin/Breast: Reports system reviewed and no additional complaints, except as docu and Denies rash <Gail Childress NP - Last Filed: 01/11/23 17:05> Neurologic: Reports system reviewed and no additional complaints, except as documented, Denies Abnormal speech present, Denies dizziness, Denies headache(s), Denies numbness, Denies tingling and Denies weakness <Gail Childress NP - Last Filed: 01/11/23 17:05> Psychiatric: Psychiatric: Reports hallucinations, Denies homicidal ideation and Denies suicidal ideation <Gail Childress NP - Last Filed: 01/11/23 17:05> [facility] Past Medical History Attestation statement: The following information was validated with the patient. <Gail Childress NP - Last Filed: 01/11/23 17:05> Source: old records reviewed and nursing notes reviewed <Gail Childress NP - Last Filed: 01/11/23 17:05> Medical History: Medical History Anxiety Bipolar 1 disorder Depression Fibromyalgia Mental health disorder <NOHEMY Bell - Last Filed: 01/11/23 13:23> Social History Social History: Social History Household Members: None Housing: Apartment Alcohol intake: unknown Patient Tobacco Use Status: Current everyday Tobacco user Cigarettes Per Day: 6 Years Smoked: 15 Substance Use Type: Marijuana Advance Directives: No Advance Directives Information Provided: No <NOHEMY Bell - Last Filed: 01/11/23 13:23> Physical Exam Vital Signs: Vital Signs: Last Vital Signs Temp 97.9 F 01/11/23 13:22 Pulse 92 01/11/23 13:22 Resp 18 01/11/23 13:22 BP 170/81 H 01/11/23 13:22 Pulse Ox 98 01/11/23 13:22 O2 Del Method 01/11/23 13:22 BMI result Body Mass Index 40.6 <NOHEMY Bell - Last Filed: 01/11/23 13:23> Vital Signs: Last Vital Signs Temp 97.9 F 01/11/23 13:22 Pulse 92 01/11/23 13:22 Resp 18 01/11/23 13:22 BP 170/81 H 01/11/23 13:22 Pulse Ox 98 01/11/23 13:22 O2 Del Method 01/11/23 13:22 BMI result Body Mass Index 40.6 <Gail Childress NP - Last Filed: 01/11/23 17:05> Const: General: cooperative, healthy appearing, comfortable and no acute distress <Gail Childress NP - Last Filed: 01/11/23 17:05> Orientation/consciousness: patient oriented x3 <Gail Childress NP - Last Filed: 01/11/23 17:05> Limitations: no limitations <Gail Childress NP - Last Filed: 01/11/23 17:05> HEENT: Head: Yes normal to inspection <Gail Childress NP - Last Filed: 01/11/23 17:05> Ears: hearing grossly normal bilaterally <Gail Childress NP - Last Filed: 01/11/23 17:05> General nose exam: Normal external nose present <Gail Childress NP - Last Filed: 01/11/23 17:05> Face and sinus: Yes normal facial exam <Gail Childress NP - Last Filed: 01/11/23 17:05> Mouth: Normal oral and palatal mucosa present <Gail Childress [employer] - Last Filed: 01/11/23 17:05> Throat: Yes posterior oropharynx normal <Gail Childress [employer] SAL[employer]ATE - Last Filed: 01/11/23 17:05> Eyes: General: appearance normal, both eyes and all related structures <Gail Childress [employer] SALES ASSOCIATE - Last Filed: 01/11/23 17:05> Pupils: Equal, round and reactive pupils present <Gail Childress [employer] SALES [employer]OCIATE - Last Filed: 01/11/23 17:05> Neck: Neck: Yes normal visual inspection <Gail Childress [employer] SALES [employer]OCIATE - Last Filed: 01/11/23 17:05> Chest: Chest palpation & inspection: normal inspection of the chest <Gail Childress [employer] SALES [employer]IATE - Last Filed: 01/11/23 17:05> Resp: Effort & Inspection: normal respiratory effort <Gail Childress [employer] SALES ASSOCIATE - Last Filed: 01/11/23 17:05> Auscultation: clear to auscultation bilaterally <Gail Childress [employer] SALES ASSOCIATE - Last Filed: 01/11/23 17:05> Cardio: Rate: regular rate <Gail Childress [employer] SALES ASSOCIATE - Last Filed: 01/11/23 17:05> Rhythm: regular rhythm <Gail Childress [employer] SALES ASSOCIATE - Last Filed: 01/11/23 17:05> Peripheral pulses: Peripheral pulses 2+ throughout <Gail Childress [employer] SALES ASSOCIATE - Last Filed: 01/11/23 17:05> GI: Inspection: Yes normal to inspection <Gail Childress [employer] SALES ASSOCIATE - Last Filed: 01/11/23 17:05> Palpation (GI): Soft to palpation and nontender <Gail Childress [employer] SALES ASSOCIATE - Last Filed: 01/11/23 17:05> Auscultation: normal bowel sounds <Gail Childress [employer] SALES ASSOCIATE - Last Filed: 01/11/23 17:05> Back/Spine/Pelvis: Thoracic/Lumbar Spine: thoracic and lumbar spine normal to inspection <Gail Childress [employer] SALES ASSOCIATE - Last Filed: 01/11/23 17:05> Skin: General skin exam: no rashes or lesions noted <Gail Childress [employer] SALES ASSOCIATE - Last Filed: 01/11/23 17:05> Neuro: General: patient oriented x3, no focal motor deficits and normal sensation to monofilament <Gail Childress [employer] SALES ASSOCIATE - Last Filed: 01/11/23 17:05> Cranial nerves: Yes Equal, round and reactive pupils present <Gail Childress [employer] SALES ASSOCIATE - Last Filed: 01/11/23 17:05> Cognition (Neuro): normal cognition <Gail Childress [employer] SALES ASSOCIATE - Last Filed: 01/11/23 17:05> Speech: No Abnormal speech present <Gailhuber Childress, SEC[employer]ITIES SALES ASSOCIATE - Last Filed: 01/11/23 17:05> Gait exam (Neuro): Normal gait present <Gail Childress [employer] SALES ASSOCIATE - Last Filed: 01/11/23 17:05> Motor exam (neuro): 5/5 motor strength present throughout <Gail Childress [employer] SALES ASSOCIATE - Last Filed: 01/11/23 17:05> Extrem: General: Yes normal to inspection <Gail Childress [employer] SALES ASSOCIATE - Last Filed: 01/11/23 17:05> Course Course Course Narrative: RME - 27 yo female, with a past medical history of bipolar disorder I on depakote and ADHD, who presents to the ER with complaints of auditory hallucinations x 3 days. She states that she was previously admitted 1.5 years ago at [facility] [place]. Voices are telling her to hurt herself. She has a history of auditory hallucinations when she does not take her medications. She states that she has been taking all of her medications as prescribed. She has not tried to harm herself prior to coming to the ER today. Patient brought back to the main ER for further management. Plan: Labs and CARE team consult <NOHEMY Bell - Last Filed: 01/11/23 13:23> Medical Decision Making Medical Decision Making MDM Narrative: 27-year-old female here with racing thoughts and auditory hallucinations for 3 days. NO SI/HI. Feels meds need to be adjusted. No physical complaints. No concern for acute ingestion or trauma. Patient will have labs, drug screen, COVID screen and crisis consultation <Gail Childress NP - Last Filed: 01/11/23 17:05> Differential Diagnosis Differential Diagnoses: The differential diagnosis associated with the presentation includes <Gail Childress NP - Last Filed: 01/11/23 17:05> Consult Healthcare Provider Management of the patient was discussed with: Behavioral Health Provider <Gail Childress NP - Last Filed: 01/11/23 17:05> Care team- Met with patient and plan for patient to be seen at [facility]. Patient has follow-up with psychiatrist on Saturday. Patient is here because she wants med changes. There is no concern for SI or HI. She is calm and cooperative. <Gail Childress NP - Last Filed: 01/11/23 17:05> Lab Data MDM Lab Attestation statement: I reviewed the patient's lab results. <Gail Childress NP - Last Filed: 01/11/23 17:05> Result Diagrams: 01/11/23 13:50 01/11/23 13:50 <NOHEMY Bell - Last Filed: 01/11/23 13:23> Labs: Lab Results 01/11/23 01/11/23 01/11/23 Range/Units 13:44 13:44 13:44 WBC (4.8-10.8) X10*3/uL RBC (4.20-5.50) X10*6/uL Hgb (12.0-16.0) g/dl Hct (37.0-47.0) % MCV (80.0-98.0) fL MCH (27.0-33.0) pg MCHC (31.0-35.0) g/dl RDW (11.0-16.0) % Plt Count (160-400) X10*3/uL MPV (9.4-12.3) fL Immature Gran % (Auto) (0.0-0.4) % Neut % (Auto) (45-73) % Lymph % (Auto) (20-40) % Dewey % (Auto) (2-11) % Eos % (Auto) (0-4) % Baso % (Auto) (0-2) % Lymph # (Auto) (1.2-4.9) X10*3/uL [place]wey # (Auto) (0.1-1.2) X10*3/uL Eos # (Auto) (0.0-0.4) X10*3/uL Baso # (Auto) (0.0-0.2) X10*3/uL Abs Immat Gran (auto) (0.00-0.03) X10*3/uL Absolute Neuts (auto) (2.0-8.3) x10*3/uL Absolute Nucleated RBC (0.0-0.012) X10*3/uL Nucleated RBC % (auto) (0.0-0.2) /100WBC Sodium (135-145) mmol/L Potassium (3.3-5.1) mmol/L Chloride (96-108) mmol/L Carbon Dioxide (22-29) mmol/L Anion Gap (12-20) BUN (9-16) mg/dL Creatinine (0.5-1.4) mg/dL Estim Creat Clear Calc Estimated GFR Random Glucose (60-115) mg/dL Calcium (8.4-10.2) mg/dL Magnesium (1.6-2.6) mg/dL Total Bilirubin (0.0-1.0) mg/dL Direct Bilirubin (0.0-0.5) mg/dL AST (5-31) U/L ALT (0-31) U/L Alkaline Phosphatase (39-117) U/L Total Protein (6.5-8.0) g/dL Albumin (3.5-5.0) g/dL Urine Color Yellow Urine Appearance Cloudy Urine pH 7.0 (5.0-9.0) Ur Specific [place] >= 1.030 H (1.005-1.025) Urine Protein Negative (Neg-Trace) mg/dL Urine Glucose (UA) 100 H (Negative) mg/dL Urine Ketones Trace (Negative) mg/dL Urine Blood Negative (Negative) Urine Nitrite Negative (Negative) Ur Leukocyte Esterase Trace H (Negative) Urine RBC >20 H (0-2) /HPF Urine WBC 0-5 (0-5) /HPF Ur Squamous Epith Cells 11-20 (0-2) /HPF Urine Bacteria 4+ (None Seen) Hyaline Casts 0-2 (0-2) /LPF Urine Test NEGATIVE (NEGATIVE) Urine Opiates Screen Not Detected (Not Detect) Urine Fentanyl Screen Not Detected (Not Detect) Ur Barbiturates Screen Not Detected (Not Detect) Valproic Acid (50.0-100.0) mcg/mL Ur Phencyclidine Scrn Not Detected (Not Detect) Ur Amphetamines Screen Not Detected (Not Detect) U Benzodiazepines Scrn Not Detected (Not Detect) Urine Cocaine Screen Not Detected (Not Detect) U Marijuana (THC) Screen POSITIVE H (Not Detect) Ethyl Alcohol mg/dL COVID-19 (SUPA) (Negative) COVID-19 Clin Com 01/11/23 01/11/23 01/11/23 Range/Units 13:50 13:50 13:50 WBC 6.7 (4.8-10.8) X10*3/uL RBC 5.39 (4.20-5.50) X10*6/uL Hgb 14.0 (12.0-16.0) g/dl Hct 41.8 (37.0-47.0) % MCV 77.6 L (80.0-98.0) fL MCH 26.0 L (27.0-33.0) pg MCHC 33.5 (31.0-35.0) g/dl RDW 13.4 (11.0-16.0) % Plt Count 232 (160-400) X10*3/uL MPV 9.7 (9.4-12.3) fL Immature Gran % (Auto) 0.3 (0.0-0.4) % Neut % (Auto) 39.9 L (45-73) % Lymph % (Auto) 51.0 H (20-40) % Dewey % (Auto) 8.6 (2-11) % Eos % (Auto) 0.1 (0-4) % Baso % (Auto) 0.1 (0-2) % Lymph # (Auto) 3.4 (1.2-4.9) X10*3/uL [place] # (Auto) 0.6 (0.1-1.2) X10*3/uL Eos # (Auto) 0.0 (0.0-0.4) X10*3/uL Baso # (Auto) 0.0 (0.0-0.2) X10*3/uL Abs Immat Gran (auto) 0.02 (0.00-0.03) X10*3/uL Absolute Neuts (auto) 2.7 (2.0-8.3) x10*3/uL Absolute Nucleated RBC 0.000 (0.0-0.012) X10*3/uL Nucleated RBC % (auto) 0.0 (0.0-0.2) /100WBC Sodium 139 (135-145) mmol/L Potassium 4.4 (3.3-5.1) mmol/L Chloride 111 H (96-108) mmol/L Carbon Dioxide 19 L (22-29) mmol/L Anion Gap 13 (12-20) BUN 12 (9-16) mg/dL Creatinine 0.76 (0.5-1.4) mg/dL Estim Creat Clear Calc 118.7 Estimated GFR > 60 Random Glucose 121 H (60-115) mg/dL Calcium 9.2 (8.4-10.2) mg/dL Magnesium 2.0 (1.6-2.6) mg/dL Total Bilirubin 0.3 (0.0-1.0) mg/dL Direct Bilirubin < 0.2 (0.0-0.5) mg/dL AST 14 (5-31) U/L ALT 13 (0-31) U/L Alkaline Phosphatase 99 (39-117) U/L Total Protein 6.7 (6.5-8.0) g/dL Albumin 4.0 (3.5-5.0) g/dL Urine Color Urine Appearance Urine pH (5.0-9.0) Ur Specific [place] (1.005-1.025) Urine Protein (Neg-Trace) mg/dL Urine Glucose (UA) (Negative) mg/dL Urine Ketones (Negative) mg/dL Urine Blood (Negative) Urine Nitrite (Negative) Ur Leukocyte Esterase (Negative) Urine RBC (0-2) /HPF Urine WBC (0-5) /HPF Ur Squamous Epith Cells (0-2) /HPF Urine Bacteria (None Seen) Hyaline Casts (0-2) /LPF Urine Test (NEGATIVE) Urine Opiates Screen (Not Detect) Urine Fentanyl Screen (Not Detect) Ur Barbiturates Screen (Not Detect) Valproic Acid 77.1 (50.0-100.0) mcg/mL Ur Phencyclidine Scrn (Not Detect) Ur Amphetamines Screen (Not Detect) U Benzodiazepines Scrn (Not Detect) Urine Cocaine Screen (Not Detect) U Marijuana (THC) Screen (Not Detect) Ethyl Alcohol < 10 mg/dL COVID-19 (SUPA) (Negative) COVID-19 Clin Com 01/11/23 Range/Units 13:55 WBC (4.8-10.8) X10*3/uL RBC (4.20-5.50) X10*6/uL Hgb (12.0-16.0) g/dl Hct (37.0-47.0) % MCV (80.0-98.0) fL MCH (27.0-33.0) pg MCHC (31.0-35.0) g/dl RDW (11.0-16.0) % Plt Count (160-400) X10*3/uL MPV (9.4-12.3) fL Immature Gran % (Auto) (0.0-0.4) % Neut % (Auto) (45-73) % Lymph % (Auto) (20-40) % [place]wey % (Auto) (2-11) % Eos % (Auto) (0-4) % Baso % (Auto) (0-2) % Lymph # (Auto) (1.2-4.9) X10*3/uL [place] # (Auto) (0.1-1.2) X10*3/uL Eos # (Auto) (0.0-0.4) X10*3/uL Baso # (Auto) (0.0-0.2) X10*3/uL Abs Immat Gran (auto) (0.00-0.03) X10*3/uL Absolute Neuts (auto) (2.0-8.3) x10*3/uL Absolute Nucleated RBC (0.0-0.012) X10*3/uL Nucleated RBC % (auto) (0.0-0.2) /100WBC Sodium (135-145) mmol/L Potassium (3.3-5.1) mmol/L Chloride (96-108) mmol/L Carbon Dioxide (22-29) mmol/L Anion Gap (12-20) BUN (9-16) mg/dL Creatinine (0.5-1.4) mg/dL Estim Creat Clear Calc Estimated GFR Random Glucose (60-115) mg/dL Calcium (8.4-10.2) mg/dL Magnesium (1.6-2.6) mg/dL Total Bilirubin (0.0-1.0) mg/dL Direct Bilirubin (0.0-0.5) mg/dL AST (5-31) U/L ALT (0-31) U/L Alkaline Phosphatase (39-117) U/L Total Protein (6.5-8.0) g/dL Albumin (3.5-5.0) g/dL Urine Color Urine Appearance Urine pH (5.0-9.0) Ur Specific [place] (1.005-1.025) Urine Protein (Neg-Trace) mg/dL Urine Glucose (UA) (Negative) mg/dL Urine Ketones (Negative) mg/dL Urine Blood (Negative) Urine Nitrite (Negative) Ur Leukocyte Esterase (Negative) Urine RBC (0-2) /HPF Urine WBC (0-5) /HPF Ur Squamous Epith Cells (0-2) /HPF Urine Bacteria (None Seen) Hyaline Casts (0-2) /LPF Urine Test (NEGATIVE) Urine Opiates Screen (Not Detect) Urine Fentanyl Screen (Not Detect) Ur Barbiturates Screen (Not Detect) Valproic Acid (50.0-100.0) mcg/mL Ur Phencyclidine Scrn (Not Detect) Ur Amphetamines Screen (Not Detect) U Benzodiazepines Scrn (Not Detect) Urine Cocaine Screen (Not Detect) U Marijuana (THC) Screen (Not Detect) Ethyl Alcohol mg/dL COVID-19 (SUPA) Negative (Negative) COVID-19 Clin Com See Note <NOHEMY Bell - Last Filed: 01/11/23 13:23> Lab Results 01/11/23 01/11/23 01/11/23 Range/Units 13:44 13:44 13:44 WBC (4.8-10.8) X10*3/uL RBC (4.20-5.50) X10*6/uL Hgb (12.0-16.0) g/dl Hct (37.0-47.0) % MCV (80.0-98.0) fL MCH (27.0-33.0) pg MCHC (31.0-35.0) g/dl RDW (11.0-16.0) % Plt Count (160-400) X10*3/uL MPV (9.4-12.3) fL Immature Gran % (Auto) (0.0-0.4) % Neut % (Auto) (45-73) % Lymph % (Auto) (20-40) % [place]wey % (Auto) (2-11) % Eos % (Auto) (0-4) % Baso % (Auto) (0-2) % Lymph # (Auto) (1.2-4.9) X10*3/uL [place] # (Auto) (0.1-1.2) X10*3/uL Eos # (Auto) (0.0-0.4) X10*3/uL Baso # (Auto) (0.0-0.2) X10*3/uL Abs Immat Gran (auto) (0.00-0.03) X10*3/uL Absolute Neuts (auto) (2.0-8.3) x10*3/uL Absolute Nucleated RBC (0.0-0.012) X10*3/uL Nucleated RBC % (auto) (0.0-0.2) /100WBC Sodium (135-145) mmol/L Potassium (3.3-5.1) mmol/L Chloride (96-108) mmol/L Carbon Dioxide (22-29) mmol/L Anion Gap (12-20) BUN (9-16) mg/dL Creatinine (0.5-1.4) mg/dL Estim Creat Clear Calc Estimated GFR Random Glucose (60-115) mg/dL Calcium (8.4-10.2) mg/dL Magnesium (1.6-2.6) mg/dL Total Bilirubin (0.0-1.0) mg/dL Direct Bilirubin (0.0-0.5) mg/dL AST (5-31) U/L ALT (0-31) U/L Alkaline Phosphatase (39-117) U/L Total Protein (6.5-8.0) g/dL Albumin (3.5-5.0) g/dL Urine Color Yellow Urine Appearance Cloudy Urine pH 7.0 (5.0-9.0) Ur Specific [place] >= 1.030 H (1.005-1.025) Urine Protein Negative (Neg-Trace) mg/dL Urine Glucose (UA) 100 H (Negative) mg/dL Urine Ketones Trace (Negative) mg/dL Urine Blood Negative (Negative) Urine Nitrite Negative (Negative) Ur Leukocyte Esterase Trace H (Negative) Urine RBC >20 H (0-2) /HPF Urine WBC 0-5 (0-5) /HPF Ur Squamous Epith Cells 11-20 (0-2) /HPF Urine Bacteria 4+ (None Seen) Hyaline Casts 0-2 (0-2) /LPF Urine Test NEGATIVE (NEGATIVE) Urine Opiates Screen Not Detected (Not Detect) Urine Fentanyl Screen Not Detected (Not Detect) Ur Barbiturates Screen Not Detected (Not Detect) Valproic Acid (50.0-100.0) mcg/mL Ur Phencyclidine Scrn Not Detected (Not Detect) Ur Amphetamines Screen Not Detected (Not Detect) U Benzodiazepines Scrn Not Detected (Not Detect) Urine Cocaine Screen Not Detected (Not Detect) U Marijuana (THC) Screen POSITIVE H (Not Detect) Ethyl Alcohol mg/dL COVID-19 (SUPA) (Negative) COVID-19 Clin Com 01/11/23 01/11/23 01/11/23 Range/Units 13:50 13:50 13:50 WBC 6.7 (4.8-10.8) X10*3/uL RBC 5.39 (4.20-5.50) X10*6/uL Hgb 14.0 (12.0-16.0) g/dl Hct 41.8 (37.0-47.0) % MCV 77.6 L (80.0-98.0) fL MCH 26.0 L (27.0-33.0) pg MCHC 33.5 (31.0-35.0) g/dl RDW 13.4 (11.0-16.0) % Plt Count 232 (160-400) X10*3/uL MPV 9.7 (9.4-12.3) fL Immature Gran % (Auto) 0.3 (0.0-0.4) % Neut % (Auto) 39.9 L (45-73) % Lymph % (Auto) 51.0 H (20-40) % [place]wey % (Auto) 8.6 (2-11) % Eos % (Auto) 0.1 (0-4) % Baso % (Auto) 0.1 (0-2) % Lymph # (Auto) 3.4 (1.2-4.9) X10*3/uL [place] # (Auto) 0.6 (0.1-1.2) X10*3/uL Eos # (Auto) 0.0 (0.0-0.4) X10*3/uL Baso # (Auto) 0.0 (0.0-0.2) X10*3/uL Abs Immat Gran (auto) 0.02 (0.00-0.03) X10*3/uL Absolute Neuts (auto) 2.7 (2.0-8.3) x10*3/uL Absolute Nucleated RBC 0.000 (0.0-0.012) X10*3/uL Nucleated RBC % (auto) 0.0 (0.0-0.2) /100WBC Sodium 139 (135-145) mmol/L Potassium 4.4 (3.3-5.1) mmol/L Chloride 111 H (96-108) mmol/L Carbon Dioxide 19 L (22-29) mmol/L Anion Gap 13 (12-20) BUN 12 (9-16) mg/dL Creatinine 0.76 (0.5-1.4) mg/dL Estim Creat Clear Calc 118.7 Estimated GFR > 60 Random Glucose 121 H (60-115) mg/dL Calcium 9.2 (8.4-10.2) mg/dL Magnesium 2.0 (1.6-2.6) mg/dL Total Bilirubin 0.3 (0.0-1.0) mg/dL Direct Bilirubin < 0.2 (0.0-0.5) mg/dL AST 14 (5-31) U/L ALT 13 (0-31) U/L Alkaline Phosphatase 99 (39-117) U/L Total Protein 6.7 (6.5-8.0) g/dL Albumin 4.0 (3.5-5.0) g/dL Urine Color Urine Appearance Urine pH (5.0-9.0) Ur Specific [place] (1.005-1.025) Urine Protein (Neg-Trace) mg/dL Urine Glucose (UA) (Negative) mg/dL Urine Ketones (Negative) mg/dL Urine Blood (Negative) Urine Nitrite (Negative) Ur Leukocyte Esterase (Negative) Urine RBC (0-2) /HPF Urine WBC (0-5) /HPF Ur Squamous Epith Cells (0-2) /HPF Urine Bacteria (None Seen) Hyaline Casts (0-2) /LPF Urine Test (NEGATIVE) Urine Opiates Screen (Not Detect) Urine Fentanyl Screen (Not Detect) Ur Barbiturates Screen (Not Detect) Valproic Acid 77.1 (50.0-100.0) mcg/mL Ur Phencyclidine Scrn (Not Detect) Ur Amphetamines Screen (Not Detect) U Benzodiazepines Scrn (Not Detect) Urine Cocaine Screen (Not Detect) U Marijuana (THC) Screen (Not Detect) Ethyl Alcohol < 10 mg/dL COVID-19 (SUPA) (Negative) COVID-19 Clin Com 01/11/23 Range/Units 13:55 WBC (4.8-10.8) X10*3/uL RBC (4.20-5.50) X10*6/uL Hgb (12.0-16.0) g/dl Hct (37.0-47.0) % MCV (80.0-98.0) fL MCH (27.0-33.0) pg MCHC (31.0-35.0) g/dl RDW (11.0-16.0) % Plt Count (160-400) X10*3/uL MPV (9.4-12.3) fL Immature Gran % (Auto) (0.0-0.4) % Neut % (Auto) (45-73) % Lymph % (Auto) (20-40) % [place] % (Auto) (2-11) % Eos % (Auto) (0-4) % Baso % (Auto) (0-2) % Lymph # (Auto) (1.2-4.9) X10*3/uL [place] # (Auto) (0.1-1.2) X10*3/uL Eos # (Auto) (0.0-0.4) X10*3/uL Baso # (Auto) (0.0-0.2) X10*3/uL Abs Immat Gran (auto) (0.00-0.03) X10*3/uL Absolute Neuts (auto) (2.0-8.3) x10*3/uL Absolute Nucleated RBC (0.0-0.012) X10*3/uL Nucleated RBC % (auto) (0.0-0.2) /100WBC Sodium (135-145) mmol/L Potassium (3.3-5.1) mmol/L Chloride (96-108) mmol/L Carbon Dioxide (22-29) mmol/L Anion Gap (12-20) BUN (9-16) mg/dL Creatinine (0.5-1.4) mg/dL Estim Creat Clear Calc Estimated GFR Random Glucose (60-115) mg/dL Calcium (8.4-10.2) mg/dL Magnesium (1.6-2.6) mg/dL Total Bilirubin (0.0-1.0) mg/dL Direct Bilirubin (0.0-0.5) mg/dL AST (5-31) U/L ALT (0-31) U/L Alkaline Phosphatase (39-117) U/L Total Protein (6.5-8.0) g/dL Albumin (3.5-5.0) g/dL Urine Color Urine Appearance Urine pH (5.0-9.0) Ur Specific [place] (1.005-1.025) Urine Protein (Neg-Trace) mg/dL Urine Glucose (UA) (Negative) mg/dL Urine Ketones (Negative) mg/dL Urine Blood (Negative) Urine Nitrite (Negative) Ur Leukocyte Esterase (Negative) Urine RBC (0-2) /HPF Urine WBC (0-5) /HPF Ur Squamous Epith Cells (0-2) /HPF Urine Bacteria (None Seen) Hyaline Casts (0-2) /LPF Urine Test (NEGATIVE) Urine Opiates Screen (Not Detect) Urine Fentanyl Screen (Not Detect) Ur Barbiturates Screen (Not Detect) Valproic Acid (50.0-100.0) mcg/mL Ur Phencyclidine Scrn (Not Detect) Ur Amphetamines Screen (Not Detect) U Benzodiazepines Scrn (Not Detect) Urine Cocaine Screen (Not Detect) U Marijuana (THC) Screen (Not Detect) Ethyl Alcohol mg/dL COVID-19 (SUPA) Negative (Negative) COVID-19 Clin Com See Note <Gail Childress NP - Last Filed: 01/11/23 17:05> Discharge Plan Discharge Clinical Impression: Bipolar 1 disorder <NOHEMY Bell - Last Filed: 01/11/23 13:23> Patient Disposition: Home, Self-Care <NOHEMY Bell - Last Filed: 01/11/23 13:23> Instructions: Bipolar Disorder (ED) <NOHEMY Bell - Last Filed: 01/11/23 13:23> Additional Instructions: keep your appointment on Saturday with her psychiatrist. You may go to [facility] at [address] [facility] in [facility] or call them at [phone] <NOHEMY Bell - Last Filed: 01/11/23 13:23> Prescriptions: No Action atomoxetine 80 mg capsule 1 cap PO QAM Vraylar 1.5 mg capsule 1 cap PO DAILY divalproex 250 mg tablet extended release 24 hr 1,250 mg PO QAM doxycycline hyclate 100 mg capsule 100 mg PO BID Qty: 14 0RF cephalexin 500 mg capsule 500 mg PO BID Qty: 14 0RF oxycodone 5 mg capsule 5 mg PO BID PRN (Reason: pain) Qty: 6 0RF Rx Instructions: Partial Fill upon patient request. Vraylar 6 mg capsule 1 cap PO QAM azithromycin [Zithromax Z-Rajat] 250 mg tablet See Rx Instructions .ROUTE .COMPLEX Qty: 6 0RF Rx Instructions: take 500 mg today (day 1), then 250 mg for 4 days (days 2-5) ondansetron 4 mg tablet,disintegrating 4 mg PO Q6-8H PRN (Reason: nausea and vomiting) Qty: 10 0RF metronidazole 500 mg tablet 500 mg PO BID 7 Days Qty: 14 0RF albuterol sulfate 90 mcg/actuation HFA aerosol inhaler 1 inh inhalation QID PRN (Reason: shortness of breath or wheezing) Qty: 6.7 0RF Nexplanon 68 mg implant 1 implant subdermal ONCE Qty: 1 0RF Nexplanon 68 mg implant subdermal <NOHEMY Bell - Last Filed: 01/11/23 13:23> Referrals: [facility] [Other] <NOHEMY Bell - Last Filed: 01/11/23 13:23> Stand Alone Forms: Work/School Release <NOHEMY Bell - Last Filed: 01/11/23 13:23>
[2023-01-11 13:22] VITALS: BP 170/81; PULSE 92; RESP 18; TEMP 36.6; O2SAT 98; BMI 40.6
[2023-01-11 13:55] LABS: MANUAL DIFF FLAG NO
[2023-01-11 14:00] LABS: Basophils Percent Auto 0.1 % (0-2); Eosinophils Percent Auto 0.1 % (0-4); Hematocrit 41.8 % (37.0-47.0); Imm Gran Abs Auto 0.02 X10*3/uL (0.00-0.03); Imm Gran Pct Auto 0.3 % (0.0-0.4); Lymphocytes Absolute Auto 3.4 X10*3/uL (1.2-4.9); Mean Corpuscular HGB Conc 33.5 g/dl (31.0-35.0); Mean Corpuscular Volume 77.6 fL (80.0-98.0); Mean Platelet Volume 9.7 fL (9.4-12.3); Monocytes Absolute Auto 0.6 X10*3/uL (0.1-1.2); Monocytes Percent Auto 8.6 % (2-11); Neutrophils Absolute Auto 2.7 x10*3/uL (2.0-8.3); Neutrophils Percent Auto 39.9 % (45-73); Platelet Count 232 X10*3/uL (160-400); Red Blood Count 5.39 X10*6/uL (4.20-5.50); Red Cell Distribution Width 13.4 % (11.0-16.0); White Blood Count 6.7 X10*3/uL (4.8-10.8)
[2023-01-11 14:03] LABS: UPreg QC Valid YES; Urine Pregnancy NEGATIVE (NEGATIVE)
[2023-01-11 14:04] LABS: Appearance Urine Cloudy; Color Urine Yellow; Glucose Urine UA 100 mg/dL (Negative); Leukocyte Esterase Urine Trace (Negative); Nitrite Urine Negative (Negative); Specific Gravity - Urine >= 1.030 (1.005-1.025); UMIC TRIGGER UACC YES; Urine Blood Negative (Negative); Urine Ketones Trace mg/dL (Negative); Urine Protein Negative (Neg-Trace)
[2023-01-11 14:14] LABS: Amphetamine Screen Urine Not Detected (Not Detect); Barbiturates, Urine Not Detected (Not Detect); Benzodiazepines Screen Urine Not Detected (Not Detect); Cannabinoid Screen Urine POSITIVE (Not Detect); Cocaine Screen Urine Not Detected (Not Detect); Fentanyl, urine Not Detected (Not Detect); Opiate Screen Urine Not Detected (Not Detect); Phencyclidine Screen Urine Not Detected (Not Detect)
[2023-01-11 14:16] LABS: Valproate 77.1 mcg/mL (50.0-100.0)
[2023-01-11 14:17] LABS: Bacteria Urine 4+ (None Seen); Hyaline Casts Urine 0-2 /LPF (0-2); RBC Urine >20 /HPF (0-2); WBC Urine 0-5 /HPF (0-5)
[2023-01-11 14:50] LABS: Alanine Aminotransferase 13 U/L (0-31); Alkaline Phosphatase 99 U/L (39-117); Anion Gap 13 (12-20); Aspartate Amino Transferase 14 U/L (5-31); Bilirubin Direct < 0.2 mg/dL (0.0-0.5); Bilirubin Total 0.3 mg/dL (0.0-1.0); Blood Urea Nitrogen 12 mg/dL (9-16); Calcium 9.2 mg/dL (8.4-10.2); Carbon Dioxide 19 mmol/L (22-29); Chloride 111 mmol/L (96-108); Creatinine Clr Calc Pharmacy 118.7; Estimated Glomerular Filt Rate > 60; Ethanol < 10 mg/dL; Glucose Random 121 mg/dL (60-115); Potassium 4.4 mmol/L (3.3-5.1); Sodium 139 mmol/L (135-145); Total Protein 6.7 g/dL (6.5-8.0)
[2023-01-11 15:13] LABS: IDNOW Serial# BCCEAD1C
[2023-01-11 15:14] LABS: COVID-19 Test Negative (Negative)
--- NOTE | 2023-01-11 16:15 | PC.NURSE ---
Pt states she was only here for her depakote levels. Pt out patient die try out worker had called to verify. Pt to be d/c'd
--- NOTE | 2023-01-11 18:18 | MHC.CARE ---
Late Entry 1600: CARE Team received a call from Elif ([phone])? 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 She reported Pt has therapy and psychiatry through [facility] and has an outpatient psychiatry appt on Sunday 01/14. She did not report any safety concerns. She reported Pt has history fo IPLOC admission in 2019 after [facility] and was then hospitalized. She reported Pt was connected with [facility] at this time. She reported Pt has had no subsquent IPLOC since this admission. She reprots she carries at diagnosis of bipolar disorder.
--- NOTE | 2023-01-11 18:32 | MHC.CARE ---
Late Entry 1615: CARE Team briefly met with Pt who reported she would like to be discharge. Pt stated I came to the ED to make sure my medications levels were okay due to crying spelling earlier in the day. Pt denied current SI/HI/VH/AH. Pt stated she has an outpatient appt on Saturday with her psychiatrist. CARE Team reviewed information from collateral contact and Pt with Gail Childress NP. Due to Pt not presenting in acute crisis, Pt requesting to be discharged and her outpatient team not recommending Pt to be boarded in the ED awaiting an assessment. Pt will be discharged to follow up [facility] in the community. Pt provided with [facility] crisis information and Pt verbalized plan to go to [facility]. CARE updated Elif that Pt will be discharged to follow up with [facility] in the community. Elif stated she would notify [facility] that Pt will be presenting for support and was in agreement with plan of care. Elif reported she put Pt on alert with [facility].
== END 2023-01-11 17:20 | disposition home or self-care (01) ==
PROVIDERS: Nurse Practitioner Family; Physician Assistant; Emergency Provider Emergency Medicine; PCP Student in an Organized Health Care Education/Training Program
DX: R44.0 Auditory hallucinations (principal); F31.9 Bipolar disorder, unspecified; Z20.822 Contact with and (suspected) exposure to COVID-19
CPT/HCPCS: 36415; 80048; 80076; 80164; 80307; 81001; 81003; 81025; 82077; 83735; 85025; 87635; 99283; 99284

== ENCOUNTER 2023-01-14 16:41 | Emergency (ER) | payer OTHER, SELFPAY ==
[2023-01-14 17:34] VITALS: BP 143/74; PULSE 90; RESP 18; TEMP 36.7; O2SAT 96; BMI 41.5
--- NOTE | 2023-01-14 17:36 | ED_ITS ---
HPI - Psych General Chief Complaint: Psychiatric Symptoms Stated Complaint: crisis eval Time Seen by Provider: 01/14/23 19:22 Related Data Home Medications Medication Instructions Recorded Confirmed cariprazine 6 mg capsule (Vraylar) 1 cap PO QAM 01/27/22 01/21/23 cariprazine 1.5 mg capsule 1 cap PO DAILY 02/11/22 01/21/23 (Vraylar) divalproex 250 mg tablet,extended 500 mg PO TID 01/21/23 01/25/23 release 24 hr (Depakote ER) lorazepam 0.5 mg tablet 0.5 mg PO DAILY PRN Anxiety 01/21/23 01/21/23 atomoxetine 60 mg capsule 60 mg PO DAILY 01/24/23 01/24/23 Allergies Allergy/AdvReac Type Severity Reaction Status Date / Time lithium [LITHIUM] Allergy Intermediate HIVES Verified 01/14/23 17:34 [facility] Allergy Unknown HIVES FROM Verified 01/14/23 17:34 THE PATCH onion Allergy Throat Verified 01/21/23 15:04 lico [facility] Past Medical History Medical History Anxiety Bipolar 1 disorder Depression Fibromyalgia Mental health disorder Tremor of both hands Surgical History H/O brain surgery Social History Social History Household Members: None Housing: Apartment Alcohol intake: unknown Patient Tobacco Use Status: Current everyday Tobacco user Tobacco use type: Cigarette Cigarettes Per Day: 10 Years Smoked: 15 Patient Interested in Nicotine Replacement: No (Allergies to nicotine products.) Patient Given Instructions on How to Stop Smoking: No Substance Use Type: Marijuana Do you have thoughts of harming others: None Physical Exam Vital Signs: Vital Signs: Last Vital Signs Temp 98.0 F 01/14/23 17:34 Pulse 90 01/14/23 17:34 Resp 18 01/14/23 17:34 BP 143/74 H 01/14/23 17:34 Pulse Ox 96 01/14/23 17:34 O2 Del Method Room Air 01/14/23 17:34 BMI result Body Mass Index 41.5 Course Course Course Narrative: RME-17:48PM - 27yoF with a PMHx of bipolar 1 disorder, ADHD, anxiety, depression who is presenting to the ER with c/o increased anxiety/depression since November worse today. Reports that she spoke to her therapist today who recommended partial program and told her she would look into partial programs for her and get back to her as soon as she can although patient reports she did not get back to her today therefore she came here for further evaluation treatment. She reports she just wants her medications right. She is unsure if it is related to her Nexplanon that she recently had place. She denies any SI or HI or auditory or visual hallucinations thoughts of self-injury. Currently lives with grandmother. Denies any drug or alcohol usage. Denies any other symptoms complaints or concerns at this time. Plan: Will obtain labs, UA, EKG for medical clearance. Patient will be sent back to the waiting room to be evaluated the ED/behavioral health Pod. Discharge Plan Discharge Clinical Impression: Bipolar 1 disorder Patient Disposition: Elopement Prescriptions: No Action Vraylar 1.5 mg capsule 1 cap PO DAILY Vraylar 6 mg capsule 1 cap PO QAM divalproex [Depakote ER] 250 mg Tablet Extended Release 24 Hr 500 mg PO TID Rx Instructions: Take 500 mg TID with an additional 250 mg tab in the morning for a total dose of 1750 mg. lorazepam 0.5 mg Tablet 0.5 mg PO DAILY PRN (Reason: Anxiety) atomoxetine 60 mg Capsule 60 mg PO DAILY Nexplanon 68 mg implant 1 implant subdermal ONCE Qty: 1 0RF Interventions: [place]-Suicide Risk Severity Scale Last Done: 01/15/23 08:24 Discharge Date/Time: 01/15/23 08:25
== END 2023-01-15 08:25 | disposition left against medical advice (07) ==
PROVIDERS: Emergency Provider Emergency Medicine
DX: F33.1 Major depressive disorder, recurrent, moderate (principal); F41.1 Generalized anxiety disorder; F43.0 Acute stress reaction; F17.210 Nicotine dependence, cigarettes, uncomplicated; Z71.6 Tobacco abuse counseling; Z79.899 Other long term (current) drug therapy
CPT/HCPCS: 99282; 99283

== ENCOUNTER 2023-01-30 08:04 | Outpatient (REF) | payer OTHER, SELFPAY ==
[2023-01-30 08:15] LABS: MANUAL DIFF FLAG NO
[2023-01-30 08:23] LABS: Basophils Percent Auto 0.2 % (0-2); Eosinophils Percent Auto 0.2 % (0-4); Hematocrit 44.5 % (37.0-47.0); Hemoglobin 14.5 g/dl (12.0-16.0); Imm Gran Abs Auto 0.02 X10*3/uL (0.00-0.03); Imm Gran Pct Auto 0.2 % (0.0-0.4); Lymphocytes Absolute Auto 4.4 X10*3/uL (1.2-4.9); Lymphocytes Percent Auto 51.5 % (20-40); Mean Corpuscular HGB Conc 32.6 g/dl (31.0-35.0); Mean Corpuscular Hemoglobin 25.7 pg (27.0-33.0); Mean Corpuscular Volume 78.9 fL (80.0-98.0); Mean Platelet Volume 10.2 fL (9.4-12.3); Monocytes Absolute Auto 0.7 X10*3/uL (0.1-1.2); Monocytes Percent Auto 8.6 % (2-11); Neutrophils Absolute Auto 3.3 x10*3/uL (2.0-8.3); Neutrophils Percent Auto 39.3 % (45-73); Platelet Count 218 X10*3/uL (160-400); Red Blood Count 5.64 X10*6/uL (4.20-5.50); White Blood Count 8.5 X10*3/uL (4.8-10.8)
[2023-01-30 08:47] LABS: Valproate 67.5 mcg/mL (50.0-100.0)
[2023-01-30 08:52] LABS: Alanine Aminotransferase 20 U/L (0-31); Alkaline Phosphatase 82 U/L (39-117); Anion Gap 13 (12-20); Aspartate Amino Transferase 18 U/L (5-31); Bilirubin Total 0.5 mg/dL (0.0-1.0); Blood Urea Nitrogen 13 mg/dL (9-16); Calcium 9.3 mg/dL (8.4-10.2); Carbon Dioxide 23 mmol/L (22-29); Chloride 111 mmol/L (96-108); Estimated Glomerular Filt Rate > 60; Glucose Fasting 123 mg/dL (60-99); Sodium 142 mmol/L (135-145); Total Protein 6.8 g/dL (6.5-8.0)
== END 2023-01-30 08:05 | disposition home or self-care (01) ==
LOC: HO.LAB 08:04
PROVIDERS: PCP Student in an Organized Health Care Education/Training Program; Visit Provider Psychiatry & Neurology Psychiatry
DX: F31.4 Bipolar disorder, current episode depressed, severe, without psychotic features (principal); Z79.899 Other long term (current) drug therapy
CPT/HCPCS: 36415; 80053; 80164; 85025

== ENCOUNTER 2023-02-05 08:37 | Outpatient (REF) | payer OTHER, SELFPAY ==
[2023-02-05 08:51] LABS: MANUAL DIFF FLAG NO
[2023-02-05 09:05] LABS: Ammonia 43 umol/L (13-55)
[2023-02-05 09:38] LABS: Basophils Percent Auto 0.1 % (0-2); Eosinophils Absolute Auto 0.1 X10*3/uL (0.0-0.4); Eosinophils Percent Auto 0.8 % (0-4); Hematocrit 41.6 % (37.0-47.0); Imm Gran Abs Auto 0.03 X10*3/uL (0.00-0.03); Imm Gran Pct Auto 0.4 % (0.0-0.4); Lymphocytes Absolute Auto 4.2 X10*3/uL (1.2-4.9); Lymphocytes Percent Auto 54.7 % (20-40); Mean Corpuscular HGB Conc 33.7 g/dl (31.0-35.0); Mean Corpuscular Volume 77.2 fL (80.0-98.0); Mean Platelet Volume 10.8 fL (9.4-12.3); Monocytes Absolute Auto 0.7 X10*3/uL (0.1-1.2); Neutrophils Absolute Auto 2.7 x10*3/uL (2.0-8.3); Platelet Count 221 X10*3/uL (160-400); Red Blood Count 5.39 X10*6/uL (4.20-5.50); White Blood Count 7.6 X10*3/uL (4.8-10.8)
[2023-02-05 09:53] LABS: Alanine Aminotransferase 18 U/L (0-31); Alkaline Phosphatase 96 U/L (39-117); Anion Gap 16 (12-20); Aspartate Amino Transferase 16 U/L (5-31); Bilirubin Total 0.4 mg/dL (0.0-1.0); Blood Urea Nitrogen 10 mg/dL (9-16); Calcium 9.2 mg/dL (8.4-10.2); Carbon Dioxide 20 mmol/L (22-29); Chloride 107 mmol/L (96-108); Estimated Glomerular Filt Rate > 60; Glucose Fasting 121 mg/dL (60-99); Potassium 4.7 mmol/L (3.3-5.1); Sodium 138 mmol/L (135-145); Total Protein 6.7 g/dL (6.5-8.0)
[2023-02-05 10:28] LABS: Valproate 55.8 mcg/mL (50.0-100.0)
--- NOTE | 2023-02-08 14:24 | PC.NURSE ---
Lab results of 01/30/23 and 02/05/23 faxed to patients prescriber Brigid Lewis and Kj SLATER. Deena Carpenter [employer] aware of the results.
== END 2023-02-05 08:38 | disposition home or self-care (01) ==
LOC: HO.LAB 08:37
PROVIDERS: Psychiatry & Neurology Psychiatry; PCP Student in an Organized Health Care Education/Training Program; Visit Provider Internal Medicine
DX: F31.4 Bipolar disorder, current episode depressed, severe, without psychotic features (principal); Z79.899 Other long term (current) drug therapy
CPT/HCPCS: 36415; 80053; 80164; 82140; 85025

== ENCOUNTER 2023-02-06 08:30 | Outpatient (RCR) | payer OTHER, SELFPAY ==
--- NOTE | 2023-01-21 09:44 | PC.NURSE ---
Consuelo left the first group crying. [facility] staff Alysha brought her to my office. I spoke to Consuelo and she stated she woke up late this morning and forgot to take her medications, she was upset regarding this and crying. She stated she needs to go to home to her grandmothers house where she takes her medications and wants to come back to the program after she takes her medications. We reviewed her medications together. She also stated she is still in her pajamas as she did not have time to change as she did not want to be late to the program. Patient drove to the program. She stated there is no one who could bring her medications to her. Patient left and stated she would be back after taking her medications. She stated her grandmother lives close by. Deena Carpenter [facility] is aware.
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
[2023-01-21 13:09] VITALS: BP 102/70; PULSE 88; TEMP 37.3
[2023-01-21 13:33] VITALS: BMI 39.6
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
--- NOTE | 2023-01-25 09:41 | PC.NURSE ---
Confirmed increase in Depakote dose with Deena Carpenter CNP and per patient pharmacy. Patient to take Depakote ER 250 mg tabs. Take 2 tabs TID with an additional 250 mg tab in the morning for a total dose of 1750 mg.
--- NOTE | 2023-01-28 12:07 | HO.PHPPROGNO ---
Subjective Subjective Date of Service: 01/28/23 Reason For Visit: bipolar I d/o Interim History: Patient doing somewhat better with 1750 mg of Depakote has been active in partial hospital program Mental Status Exam Mental Status Exam Narrative: Well-developed, well-nourished female, NAD. Anxious, labile mood an affect. Normal ambulation. No tics or tremors. Patient Appearance: Appropriate Patient Orientation: Person, Place, Time and Situation Level of Consciousness: Appropriate Patient Behavior: Appropriate, Talkative, Cooperative, Anxious and Good Eye Contact Mood Description: Depressed, Anxious and Labile Affect Description: Anxious and Labile Patient Cognition Impaired: No Ability to Follow Directions: Good Speech Pattern: Clear, Rapid and Excessive Memory Description: Intact Hallucinations: Auditory (Reports hearing voices, negative, tell her she is no good, that she should hurt herself) Delusions: Not Present Thought Process: Racing Thought Content: positive for Racing Depressive Symptoms: Increased Anxiety, Increased Irritability, Difficulty Sleeping, Crying Spells, Hopelessness, Increased Fatigue and Loss of Energy Judgement: Fair Diagnostics Vital Signs (24Hr): BMI result Body Mass Index 39.6 Assessment & Plan Assessment & Plan (1) Bipolar 1 disorder: Status: Acute Code(s): F31.9 - Bipolar disorder, unspecified (2) ADHD (attention deficit hyperactivity disorder): Status: Acute Code(s): F90.9 - Attention-deficit hyperactivity disorder, unspecified type Plan Patient states she has generally done better in Depakote range over 100 Patient educated on: medication risk/benefits Informed Consent: understands Reason for contiued partial hosp. stay Substantial Risk for: rapid decompensation Certification I certify that partial hospital treatment is medically necessary due to the symptoms and problems resulting from the patient's mental illness and the failure to treat the patient at the partial hospital level of care would likely result in the patient requiring inpatient psychiatric care which could not be prevented at a less intensive level of care. Total time managing care of this patient today ____ minutes. Discharge Plan Discharge Attending provider: Kerwin Mehta Medications: New divalproex [Depakote ER] 250 mg tablet extended release 24 hr 1,750 mg PO DAILY 14 Days Qty: 98 1RF Discontinued divalproex 250 mg tablet extended release 24 hr 1,250 mg PO QAM divalproex 250 mg tablet extended release 24 hr 2 tab PO TID No Action Vraylar 1.5 mg capsule 1 cap PO DAILY Vraylar 6 mg capsule 1 cap PO QAM divalproex [Depakote ER] 250 mg Tablet Extended Release 24 Hr 500 mg PO TID Rx Instructions: Take 500 mg TID with an additional 250 mg tab in the morning for a total dose of 1750 mg. lorazepam 0.5 mg Tablet 0.5 mg PO DAILY PRN (Reason: Anxiety) atomoxetine 60 mg Capsule 60 mg PO DAILY Nexplanon 68 mg implant 1 implant subdermal ONCE Qty: 1 0RF Stand Alone Forms: Patient Portal Discharge page
--- NOTE | 2023-02-06 12:21 | P.PNPSP_ITS ---
Subjective Subjective Date of Service: 02/06/23 Reason For Visit: bipolar I d/o Medical Problems Affecting Mental Status: No Interim History: Describes mood as ?improved, more stable ?. Reports feels ready for discharge from [facility] at this time. No SI, no safety concerns. Looking forward to returning to work on Saturday. Request return to work note. See psychiatric provider in 1 week. Medication Compliance: Yes Side effects from medications: No Attending Groups: Yes Review of Systems Acute medical concerns: No Medical Review of Systems: unchanged Review of Systems Review of Systems Yes all other systems are reviewed and are negative Constitutional: Reports no additional constitutional complaints Mental Status Exam Mental Status Exam Narrative: NAD Patient Appearance: Appropriate Patient Orientation: Person, Place, Time and Situation Level of Consciousness: Appropriate Patient Behavior: Appropriate, Cooperative and Good Eye Contact Mood Description: Appropriate Affect Description: Appropriate Patient Cognition Impaired: No Ability to Follow Directions: Excellent Speech Pattern: Clear Memory Description: Intact Delusions: Not Present Thought Process: Intact Thought Content: positive for Intact Judgement: Good Diagnostics Vital Signs (24Hr): BMI result Body Mass Index 39.6 Assessment & Plan Assessment & Plan (1) Bipolar 1 disorder: Status: Acute Code(s): F31.9 - Bipolar disorder, unspecified Assessment and Plan: Describes mood as improved, more stable. Feels Depakote increase has helped to stabilize symptoms. No SI, no safety concerns. Feels ready for discharge from [facility] at this time. Reviewed recent lab results with patient. Patient to see outpatient provider in 1 week. No concerns at this time, looks forward to returning to work. Plan 1. Patient appears stable for discharge from [facility] at this time. 2. Return to work note provided. 3. Patient has medication supply. 4. Patient to follow-up with outpatient providers going forward. Patient educated on: diagnosis, medication risk/benefits and therapeutic strategies Informed Consent: understands Reason for contiued partial hosp. stay Substantial Risk for: stable for discharge Certification I certify that partial hospital treatment is medically necessary due to the symptoms and problems resulting from the patient's mental illness and the failure to treat the patient at the partial hospital level of care would likely result in the patient requiring inpatient psychiatric care which could not be prevented at a less intensive level of care. Total time managing care of this patient today __20_ minutes. Discharge Plan Discharge Attending provider: Kerwin Mehta Medications: New divalproex [Depakote ER] 250 mg tablet extended release 24 hr 1,750 mg PO DAILY 14 Days Qty: 98 1RF Discontinued divalproex 250 mg tablet extended release 24 hr 1,250 mg PO QAM divalproex 250 mg tablet extended release 24 hr 2 tab PO TID No Action Vraylar 1.5 mg capsule 1 cap PO DAILY Vraylar 6 mg capsule 1 cap PO QAM divalproex [Depakote ER] 250 mg Tablet Extended Release 24 Hr 500 mg PO TID Rx Instructions: Take 500 mg TID with an additional 250 mg tab in the morning for a total dose of 1750 mg. lorazepam 0.5 mg Tablet 0.5 mg PO DAILY PRN (Reason: Anxiety) atomoxetine 60 mg Capsule 60 mg PO DAILY Nexplanon 68 mg implant 1 implant subdermal ONCE Qty: 1 0RF Stand Alone Forms: Patient Portal Discharge page Patient Education: Bipolar Disorder (DC)
== END 2023-02-06 23:59 | disposition home or self-care (01) ==
LOC: HO.PHPA 08:30
PROVIDERS: Visit Provider Psychiatry & Neurology Psychiatry
DX: F31.9 Bipolar disorder, unspecified (principal); F90.9 Attention-deficit hyperactivity disorder, unspecified type; Z79.899 Other long term (current) drug therapy
CPT/HCPCS: 90791; 90853

== ENCOUNTER 2023-04-28 00:07 | Emergency (ER) | payer OTHER, SELFPAY ==
--- NOTE | ~2023-04-28 | XR_ITS ---
EXAMINATION: XR CHEST CLINICAL INFORMATION: Chest wall pain with cough. COMPARISON: Chest 07/05/2022 TECHNIQUE: Frontal view of the chest was obtained. FINDINGS: The lungs are well-expanded and clear. There is ill-defined 6 mm nodule left upper lobe new since 07/05/2022. No additional nodules seen. The heart size and pulmonary vascularity is normal. There are surgical kiet in the left lung apex from previous intervention. No gross bony abnormality. XR/XR chest 1V IMPRESSION: New ill-defined 6 mm nodule in left upper lobe.
[2023-04-28 00:20] VITALS: BP 135/92; PULSE 102; RESP 20; TEMP 36.7; O2SAT 89; BMI 45.7
[2023-04-28 01:12] VITALS: BP 145/76; PULSE 88; RESP 16; TEMP 37.2; O2SAT 97
--- NOTE | 2023-04-28 01:17 | MHC.EDTECH ---
THIS PCT JUST ASSUMED CARE OF PT ,VITALS SIGN TAKEN ,RSV/COVID SWAB AND STREP SWAB COLLECTED AND SENT TO LAB.
[2023-04-28 01:36] LABS: IDNOW Serial# 08D9AD1C; Strep A Nucleic Acid Negative (Negative)
[2023-04-28 02:05] LABS: Influenza A PCR NEGATIVE (Negative); Influenza B PCR NEGATIVE (Negative); Resp Syncy Virus RNA Qual PCR NEGATIVE (Negative); SARS COV2 PCR INHOUSE NEGATIVE (Negative)
--- NOTE | 2023-04-28 02:29 | ED_ITS ---
HPI - General Adult General Chief complaint: General Medical Stated complaint: sore throat, chest pain Time Seen by Provider: 04/28/23 01:26 History of Present Illness HPI narrative: Patient is a 20-year-old female presents today with coughing congestion upper respiratory symptoms. Positive generalized malaise weakness. Cough productive of yellowish sputum. Positive chest pain when she coughs. Sore throat. Positive generalized malaise. Patient is a smoker. No abdominal pain no nausea no vomiting does not think she is . Patient has a Norplant Related Data Home Medications Medication Instructions Recorded Confirmed cariprazine 6 mg capsule (Vraylar) 1 cap PO QAM 01/27/22 01/21/23 cariprazine 1.5 mg capsule 1 cap PO DAILY 02/11/22 01/21/23 (Vraylar) divalproex 250 mg tablet,extended 500 mg PO TID 01/21/23 01/25/23 release 24 hr (Depakote ER) lorazepam 0.5 mg tablet 0.5 mg PO DAILY PRN Anxiety 01/21/23 01/21/23 atomoxetine 60 mg capsule 60 mg PO DAILY 01/24/23 01/24/23 Previous Rx's Medication Instructions Recorded divalproex 250 mg tablet,extended 1,750 mg PO DAILY 2 weeks #98 tabs 01/28/23 release 24 hr (Depakote ER) doxycycline hyclate 100 mg capsule 100 mg PO BID cough 7 days #14 caps 04/28/23 Allergies Allergy/AdvReac Type Severity Reaction Status Date / Time lithium [LITHIUM] Allergy Intermediate HIVES Verified 01/14/23 17:34 nicotine [From NICODERM CQ] Allergy Unknown HIVES FROM Verified 01/14/23 17:34 THE PATCH onion Allergy Throat Verified 01/21/23 15:04 lico Review of Systems Review of Systems: Positive cough with congestion upper respiratory symptoms but it has been ongoin g for last 3 days Yes all other systems are reviewed and are negative [facility] Past Medical History Attestation statement: The following information was validated with the patient. Medical History Anxiety Bipolar 1 disorder Depression Fibromyalgia Mental health disorder Tremor of both hands Surgical History H/O brain surgery Social History Social History Household Members: None Housing: Apartment Alcohol intake: unknown Patient Tobacco Use Status: Current everyday Tobacco user Tobacco use type: Cigarette Cigarettes Per Day: 10 Years Smoked: 15 Substance Use Type: Marijuana Advance Directives: No Advance Directives Information Provided: Yes Physical Exam ED Vital Signs: Vital Signs - 24 hr 04/28/23 00:20 04/28/23 01:12 Temperature 98.1 F 98.9 F Pulse Rate 102 H 88 Respiratory Rate 20 16 Blood Pressure 135/92 H 145/76 H Pulse Oximetry 89 L 97 Oxygen Delivery Method Room Air Room Air BMI result Body Mass Index 45.7 Appearance: Alert. Oriented X3. No acute distress. Eyes: Pupils equal, round and reactive to light. ENT: Pharynx normal. Neck: Normal inspection. Neck supple. No lymph nodes noted. No crepitus CVS: Normal heart rate and rhythm. Pulses normal. Normal S1 and S2 Respiratory: No respiratory distress. Breath sounds normal. No Wheezing. No rales Abdomen: Soft and nontender. No rigidity. No distention. good BS x4 Skin: Skin warm and dry. Normal skin color. Normal skin turgor. Extremities: No lower extremity edema. Neurovascular intact to all extremities. No Lacerations. No Rash Neuro: Oriented X 3. No motor deficit. No sensory deficit. Moving all extermities. No slurred speech Medical Decision Making Medical Decision Making MDM Narrative: Positive coughing congestion upper respiratory symptoms. Patient's rapid strep was negative. COVID test was negative. Flu and RSV are negative. Chest x-ray shows a pulmonary nodule. This was discussed with patient. Will need follow-up on an outpatient basis. Explained to patient need to stop smoking. Patient states understanding. Will start patient on doxycycline for bronchitis. Close follow-up on an outpatient basis. Explained to patient the need to use sunscreen. The need to take food with the antibiotic. Currently in stable condition. Differential Diagnosis Differential Diagnoses: The differential diagnosis associated with the presentation includes Pneumonia, flu, RSV, COVID Lab Data [facility] Lab Attestation statement: I reviewed the patient's lab results. Labs: Lab Results 04/28/23 04/28/23 Range/Units 01:17 01:17 Influenza Type A (PCR) NEGATIVE (Negative) Influenza Type B (PCR) NEGATIVE (Negative) RSV RNA Qual (PCR) NEGATIVE (Negative) SARS-CoV-2 RNA (RT-PCR) NEGATIVE (Negative) S. pyogenes GrpA JUDY Negative (Negative) Discharge Plan Discharge Clinical Impression: Bronchitis Patient Disposition: Home, Self-Care Instructions: Acute Bronchitis (ED) Additional Instructions: A lung nodule was found on your x-ray. A copy of the x-ray report was given to you. Please closely follow-up with your doctor for resolution. Small risk of malignancy exists. Prescriptions: New doxycycline hyclate 100 mg capsule 100 mg PO BID 7 Days Qty: 14 0RF No Action Vraylar 1.5 mg capsule 1 cap PO DAILY Vraylar 6 mg capsule 1 cap PO QAM divalproex [Depakote ER] 250 mg Tablet Extended Release 24 Hr 500 mg PO TID Rx Instructions: Take 500 mg TID with an additional 250 mg tab in the morning for a total dose of 1750 mg. lorazepam 0.5 mg Tablet 0.5 mg PO DAILY PRN (Reason: Anxiety) atomoxetine 60 mg Capsule 60 mg PO DAILY divalproex [Depakote ER] 250 mg tablet extended release 24 hr 1,750 mg PO DAILY 14 Days Qty: 98 1RF Nexplanon 68 mg implant 1 implant subdermal ONCE Qty: 1 0RF Referrals: Physician,Unknown J [Physician] - 04/30/23
[2023-04-28] MEDS: Doxycycline Monohydrate 100 MG CAPSULE PO (02:47)
== END 2023-04-28 02:57 | disposition home or self-care (01) ==
PROVIDERS: Emergency Provider Emergency Medicine Emergency Medical Services; PCP Student in an Organized Health Care Education/Training Program
DX: J40 Bronchitis, not specified as acute or chronic (principal); J02.9 Acute pharyngitis, unspecified; R07.89 Other chest pain; F17.210 Nicotine dependence, cigarettes, uncomplicated; Z20.822 Contact with and (suspected) exposure to COVID-19; Z20.828 Contact with and (suspected) exposure to other viral communicable diseases; Z79.899 Other long term (current) drug therapy; Z71.6 Tobacco abuse counseling
CPT/HCPCS: 0241U; 71045; 87651; 99284

== ENCOUNTER 2023-05-10 15:38 | Emergency (ER) | payer OTHER, SELFPAY ==
--- NOTE | 2023-05-10 15:41 | ED_ITS ---
HPI - General Adult General Chief complaint: Syncope Stated complaint: Syncope Related Data Home Medications ?Medication ?Instructions ?Recorded ?Confirmed cariprazine 6 mg capsule (Vraylar) 1 cap PO QAM 01/27/22 10/03/23 cariprazine 1.5 mg capsule 1 cap PO DAILY 02/11/22 10/03/23 (Vraylar) divalproex 250 mg tablet,extended 500 mg PO TID 01/21/23 10/03/23 release 24 hr (Depakote ER) lorazepam 0.5 mg tablet 0.5 mg PO DAILY PRN Anxiety 01/21/23 10/03/23 atomoxetine 60 mg capsule 60 mg PO DAILY 01/24/23 10/03/23 bupropion HCl 150 mg 24 hr tablet, 150 mg PO DAILY 10/03/23 10/03/23 extended release Previous Rx's ?Medication ?Instructions ?Recorded divalproex 250 mg tablet,extended 1,750 mg (7 x 250 mg) PO DAILY 2 01/28/23 release 24 hr (Depakote ER) weeks #98 tabs doxycycline hyclate 100 mg capsule 100 mg PO BID cough 7 days #14 caps 04/28/23 fluconazole 150 mg tablet 150 mg PO DAILY candiadiasis #1 tab 07/16/23 (Diflucan) nystatin 100,000 unit/gram topical 1 appl topical BID #15 grams 07/16/23 ointment albuterol sulfate 90 mcg/actuation 2 puff inhalation Q6H PRN 08/26/23 aerosol inhaler shortness of breath or wheezing #8.5 grams diphenhydramine HCl 25 mg capsule 50 mg (2 x 25 mg) PO TID PRN 09/16/23 (Benadryl) allergic reaction #30 caps epinephrine 0.3 mg/0.3 mL 0.3 mg (0.3 mL) IM Q10M PRN 09/16/23 injection, auto-injector anaphylaxis #2 ea famotidine 20 mg tablet (Pepcid) 20 mg PO BID #30 tabs 09/16/23 montelukast 10 mg tablet 10 mg PO BEDTIME #30 tabs 09/16/23 (Singulair) prednisone 20 mg tablet 40 mg (2 x 20 mg) PO DAILY #10 tabs 09/16/23 cyclobenzaprine 10 mg tablet 10 mg PO TID PRN muscle spasm #7 04/21/24 tabs ketorolac 10 mg tablet 10 mg PO BID #7 tabs 04/21/24 Allergies Allergy/AdvReac Type Severity Reaction Status Date / Time lithium [LITHIUM] Allergy Intermediate HIVES Verified 04/21/24 17:35 nicotine [From NICODERM CQ] Allergy Unknown HIVES FROM Verified 04/21/24 17:35 THE PATCH onion Allergy Throat Verified 04/21/24 17:35 swells [facility] Past Medical History Medical History Tremor of both hands Mental health disorder Fibromyalgia Anxiety Depression Bipolar 1 disorder Surgical History H/O brain surgery Social History Social History Household Members: None Housing: Apartment Alcohol intake: current Alcohol intake frequency: holidays/special occasions only Alcohol type: wine Patient Tobacco Use Status: Current everyday Tobacco user Tobacco use type: Cigarette Cigarettes Per Day: 10 Years Smoked: 15 Smoked in Last 30 Days: No Use of substances other than those prescribed or required for medical reasons: No Substance Use Type: Marijuana Advance Directives: No Advance Directives Information Provided: No Do you have a plan to hurt others: No Plan Patient : No Physical Exam ED Vital Signs: BMI result Body Mass Index 41.6 Course Course Course Narrative: This is an RME: Additional HPI, ROS, PE not included below will be deferred to primary provider. Patient is a 28 yo female with history of bipolar 1 disorder, ADHD, presents complaining of syncope this morning for the first time. Patient denies head trauma. Patient denies any pain. patient denies nausea, vomiting, headache, vision change, numbness, tingling, chest pain, shortness of breath. 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 Plan: labs, EKG Medical Decision Making Lab Data 05/10/23 16:22 05/10/23 16:22 Labs: Lab Results 05/10/23 05/10/23 Range/Units 16:02 16:22 WBC 8.7 (4.8-10.8) X10*3/uL RBC 4.98 (4.20-5.50) X10*6/uL Hgb 12.8 (12.0-16.0) g/dl Hct 39.0 (37.0-47.0) % MCV 78.3 L (80.0-98.0) fL MCH 25.7 L (27.0-33.0) pg MCHC 32.8 (31.0-35.0) g/dl RDW 13.1 (11.0-16.0) % Plt Count 222 (160-400) X10*3/uL MPV 10.5 (9.4-12.3) fL Immature Gran % (Auto) 0.3 (0.0-0.4) % Neut % (Auto) 38.1 L (45-73) % Lymph % (Auto) 55.1 H (20-40) % [place] % (Auto) 6.2 (2-11) % Eos % (Auto) 0.1 (0-4) % Baso % (Auto) 0.2 (0-2) % Lymph # (Auto) 4.8 (1.2-4.9) X10*3/uL [place] # (Auto) 0.5 (0.1-1.2) X10*3/uL Eos # (Auto) 0.0 (0.0-0.4) X10*3/uL Baso # (Auto) 0.0 (0.0-0.2) X10*3/uL Abs Immat Gran (auto) 0.03 (0.00-0.03) X10*3/uL Absolute Neuts (auto) 3.3 (2.0-8.3) x10*3/uL Absolute Nucleated RBC 0.000 (0.0-0.012) X10*3/uL Nucleated RBC % (auto) 0.0 (0.0-0.2) /100WBC Sodium 138 (135-145) mmol/L Potassium 3.9 (3.3-5.1) mmol/L Chloride 109 H (96-108) mmol/L Carbon Dioxide 21 L (22-29) mmol/L Anion Gap 12 (12-20) BUN 13 (9-16) mg/dL Creatinine 0.62 (0.5-1.4) mg/dL Estim Creat Clear Calc 146.3 Estimated GFR > 60 Random Glucose 110 (60-115) mg/dL Calcium 9.2 (8.4-10.2) mg/dL Magnesium 2.1 (1.6-2.6) mg/dL Total Bilirubin 0.4 (0.0-1.0) mg/dL AST 18 (5-31) U/L ALT 25 (0-31) U/L Alkaline Phosphatase 79 (39-117) U/L Troponin I High Sens < 2.7 (<3.5-17.0) ng/L Total Protein 7.0 (6.5-8.0) g/dL Albumin 3.7 (3.5-5.0) g/dL Beta HCG, Quant < 2 mIU/mL COVID-19 (SUPA) Negative (Negative) COVID-19 Clin Com See Note Discharge Plan Discharge Clinical Impression: Eloped from emergency department Patient Disposition: Elopement Prescriptions: No Action Vraylar 1.5 mg capsule 1 cap PO DAILY Vraylar 6 mg capsule 1 cap PO QAM divalproex [Depakote ER] 250 mg Tablet Extended Release 24 Hr 500 mg PO TID Rx Instructions: Take 500 mg TID with an additional 250 mg tab in the morning for a total dose of 1750 mg. lorazepam 0.5 mg Tablet 0.5 mg PO DAILY PRN (Reason: Anxiety) atomoxetine 60 mg Capsule 60 mg PO DAILY divalproex [Depakote ER] 250 mg tablet extended release 24 hr 1,750 mg PO DAILY 14 Days Qty: 98 1RF fluconazole [Diflucan] 150 mg tablet 150 mg PO DAILY Qty: 1 0RF Rx Instructions: Please take once in one week nystatin 100,000 unit/gram ointment 1 appl topical BID Qty: 15 0RF albuterol sulfate 90 mcg/actuation HFA aerosol inhaler 2 puff inhalation Q6H PRN (Reason: shortness of breath or wheezing) Qty: 8.5 0RF doxycycline hyclate 100 mg capsule 100 mg PO BID 7 Days Qty: 14 0RF epinephrine 0.3 mg/0.3 mL auto-injector 0.3 mg IM Q10M PRN (Reason: anaphylaxis) Qty: 2 0RF Rx Instructions: for 2 doses diphenhydramine HCl [Benadryl] 25 mg capsule 50 mg PO TID PRN (Reason: allergic reaction) Qty: 30 0RF montelukast [Singulair] 10 mg tablet 10 mg PO BEDTIME Qty: 30 0RF prednisone 20 mg tablet 40 mg PO DAILY Qty: 10 0RF famotidine [Pepcid] 20 mg tablet 20 mg PO BID Qty: 30 0RF bupropion HCl 150 mg tablet extended release 24 hr 150 mg PO DAILY ketorolac 10 mg tablet 10 mg PO BID Qty: 7 0RF Rx Instructions: maximum total duration of 5 days from all oral, intranasal, or parenteral formulations cyclobenzaprine 10 mg tablet 10 mg PO TID PRN (Reason: muscle spasm) Qty: 7 0RF Nexplanon 68 mg implant 1 implant subdermal ONCE Qty: 1 0RF Interventions: ED Discharge Assessment Last Done: 05/10/23 17:32 Discharge Date/Time: 05/10/23 17:33 Print Language: [place]
[2023-05-10 15:43] VITALS: BP 130/72; PULSE 85; RESP 18; TEMP 36.7; O2SAT 97; BMI 41.6
[2023-05-10 17:03] LABS: Alanine Aminotransferase 25 U/L (0-31); Albumin Level 3.7 g/dL (3.5-5.0); Alkaline Phosphatase 79 U/L (39-117); Anion Gap 12 (12-20); Aspartate Amino Transferase 18 U/L (5-31); Bilirubin Total 0.4 mg/dL (0.0-1.0); Blood Urea Nitrogen 13 mg/dL (9-16); Calcium 9.2 mg/dL (8.4-10.2); Carbon Dioxide 21 mmol/L (22-29); Chloride 109 mmol/L (96-108); Creatinine Clr Calc Pharmacy 146.3; Estimated Glomerular Filt Rate > 60; Glucose Random 110 mg/dL (60-115); Magnesium 2.1 mg/dL (1.6-2.6); Potassium 3.9 mmol/L (3.3-5.1); Sodium 138 mmol/L (135-145)
--- NOTE | 2023-05-10 17:32 | PC.NURSE ---
per security and registration was requesting a note and yelling racial slurs at staff prior to eloping
== END 2023-05-10 17:33 | disposition left against medical advice (07) ==
PROVIDERS: Physician Assistant; Emergency Provider Emergency Medicine; PCP Student in an Organized Health Care Education/Training Program
DX: R55 Syncope and collapse (principal); R94.31 Abnormal electrocardiogram [ECG] [EKG]; F17.210 Nicotine dependence, cigarettes, uncomplicated; Z20.822 Contact with and (suspected) exposure to COVID-19; Z20.828 Contact with and (suspected) exposure to other viral communicable diseases; Z71.6 Tobacco abuse counseling; Z79.899 Other long term (current) drug therapy
CPT/HCPCS: 80053; 83735; 84484; 84702; 85025; 87635; 93005; 99283

== ENCOUNTER 2023-07-16 09:22 | Emergency (ER) | payer OTHER, SELFPAY ==
--- NOTE | ~2023-07-16 | XR_ITS ---
EXAMINATION: XR CHEST CLINICAL INFORMATION: Cough COMPARISON: 04/28/2023 TECHNIQUE: Frontal view of the chest was obtained. FINDINGS: Heart, mediastinum, pulmonary vessels and lung gardiner within normal limits. The ill-defined 6 mm nodular density questioned on 04/28/2023 chest radiograph is not identified on the current examination. XR/XR chest 1V IMPRESSION: No acute cardiopulmonary disease.
[2023-07-16 09:48] VITALS: BP 134/87; PULSE 78; RESP 16; TEMP 36.4; O2SAT 98; BMI 43.7
--- NOTE | 2023-07-16 12:41 | ED.GENADULT ---
HPI - General Adult General Chief complaint: General Medical Stated complaint: Sore throat/Headache/Ear pain Time Seen by Provider: 07/16/23 13:27 Source: patient Mode of arrival: ambulatory Limitations: no limitations History of Present Illness HPI narrative: 28 year old female with PMH of bipolar disorder, recurrent bartolin gland cysts, ADHD here for Upper respiratory symptoms cough runny nose congestion and ear pain. She also has pain cyst to her genital area since last night and is hoping she came in early enough to get treated.. She states the cold symptoms have been present for a week as well. She denies any cough fever chest pain nausea vomiting or diarrhea. Related Data Home Medications Medication Instructions Recorded Confirmed cariprazine 6 mg capsule (Vraylar) 1 cap PO QAM 01/27/22 01/21/23 cariprazine 1.5 mg capsule 1 cap PO DAILY 02/11/22 01/21/23 (Vraylar) divalproex 250 mg tablet,extended 500 mg PO TID 01/21/23 01/25/23 release 24 hr (Depakote ER) lorazepam 0.5 mg tablet 0.5 mg PO DAILY PRN Anxiety 01/21/23 01/21/23 atomoxetine 60 mg capsule 60 mg PO DAILY 01/24/23 01/24/23 Previous Rx's Medication Instructions Recorded divalproex 250 mg tablet,extended 1,750 mg (7 x 250 mg) PO DAILY 2 01/28/23 release 24 hr (Depakote ER) weeks #98 tabs doxycycline hyclate 100 mg capsule 100 mg PO BID cough 7 days #14 caps 04/28/23 fluconazole 150 mg tablet 150 mg PO DAILY candiadiasis #1 tab 07/16/23 (Diflucan) nystatin 100,000 unit/gram topical 1 appl topical BID #15 grams 07/16/23 ointment Allergies Allergy/AdvReac Type Severity Reaction Status Date / Time lithium [LITHIUM] Allergy Intermediate HIVES Verified 07/16/23 09:48 nicotine [From NICODERM CQ] Allergy Unknown HIVES FROM Verified 07/16/23 09:48 THE PATCH onion Allergy Throat Verified 07/16/23 09:48 lico Review of Systems Review of Systems: Review of systems: General: Patient denies any fever chills recent illness or falls Musculoskeletal: Denies back pain or body aches or other injuries HEENT: denies headache, has runny nose, ear pain Respiratory: denies shortness of breath, cough Cardiovascular: no chest pain or palpitations : denies dysuria, frequency Abdomen: no nausea vomiting denies abdominal pain pain to vaginal wall Extremities: no swelling, no pain Skin: no diaphoresis Yes all other systems are reviewed and are negative PMFSH Past Medical History Medical History Anxiety Bipolar 1 disorder Depression Fibromyalgia Mental health disorder Tremor of both hands Surgical History H/O brain surgery Social History Social History Household Members: None Housing: Apartment Alcohol intake: current Alcohol intake frequency: holidays/special occasions only Alcohol type: wine Patient Tobacco Use Status: Current everyday Tobacco user Tobacco use type: Cigarette Cigarettes Per Day: 10 Years Smoked: 15 Substance Use Type: Marijuana Advance Directives: No Physical Exam ED Vital Signs: Vital Signs - 24 hr 07/16/23 09:48 07/16/23 12:43 Temperature 97.6 F 98.3 F Pulse Rate 78 99 Respiratory Rate 16 18 Blood Pressure 134/87 144/111 H Pulse Oximetry 98 94 Oxygen Delivery Method Room Air Room Air BMI result Body Mass Index 43.7 General: Well-appearing well-nourished in no signs of distress HEENT: Normocephalic atraumatic? Neck: No signs of JVD, no masses no tenderness or lymphadenopathy Cardiovascular: Regular rate and rhythm Respiratory: Clear to auscultation bilaterally Abdomen: Soft nontender no masses Pelvic area: Evalauted no cyst no fulness no redness to the vaginal de souza no vaginal discharge. Patient does have a small yeast infection to the intertriginous area in her groin Extremities: Normal pedal pulses no signs of edema Skin: Dry warm no rashes Back: No tenderness full ROM Course Course Course Narrative: RME: 28 year old female with a past medical hx biploaar, ADHD, Bartholin's cyst, presenting to the ED complaining of feeling sick w/chills, bilateral ear pain, congestion, rhinorrhea, sore throat, and painful cyst to genital area x1 week. Patient tearful and agitated during triage + bilateral erythematous ear canals Viral testing, rapid strep, UA, , CXR ordered Full HPI, ROS and PE to be performed by primary ED provider. Medical Decision Making Medical Decision Making [facility] Narrative: Patient has no cyst on exam but I will treat her for yeast. Swabs for covid flu already negative as well as a negative strept. I think she look well. I will start her on some diflucan and nystatin cream. Differential Diagnosis Differential Diagnoses: The differential diagnosis associated with the presentation includes The differential may include but is not limted to Viral vs bacterial URI with bartolin gland cyst Lab Data [facility] Lab Attestation statement: I reviewed the patient's lab results. Labs: Lab Results 07/16/23 Range/Units 13:04 COVID-19 (SUPA) Negative (Negative) COVID-19 Clin Com See Note Influenza Type A (JUDY) Negative (Negative) Influenza Type B (JUDY) Negative (Negative) Influenza A & B Note See Note S. pyogenes GrpA JUDY Negative (Negative) External Record Review External record reviewed: Inpatient record Prescription Management Diflucan Discharge Plan Discharge Clinical Impression: Candidal intertrigo, Upper respiratory infection Patient Disposition: Home, Self-Care Instructions: Upper Respiratory Infection (ED), Viral Syndrome (ED), Skin Yeast Infection (ED) Additional Instructions: You were here for a upper respiratory infection and pain to your vaginal area. We do not see a cys at this time but along your skin folds there is a yeast infection which you can treat with the pill today and in a one week and cream for the next week. If you have worsening pain swelling or any other concerns please return to the ED. Prescriptions: New fluconazole [Diflucan] 150 mg tablet 150 mg PO DAILY Qty: 1 0RF Rx Instructions: Please take once in one week nystatin 100,000 unit/gram ointment 1 appl topical BID Qty: 15 0RF No Action Vraylar 1.5 mg capsule 1 cap PO DAILY Vraylar 6 mg capsule 1 cap PO QAM divalproex [Depakote ER] 250 mg Tablet Extended Release 24 Hr 500 mg PO TID Rx Instructions: Take 500 mg TID with an additional 250 mg tab in the morning for a total dose of 1750 mg. lorazepam 0.5 mg Tablet 0.5 mg PO DAILY PRN (Reason: Anxiety) atomoxetine 60 mg Capsule 60 mg PO DAILY divalproex [Depakote ER] 250 mg tablet extended release 24 hr 1,750 mg PO DAILY 14 Days Qty: 98 1RF doxycycline hyclate 100 mg capsule 100 mg PO BID 7 Days Qty: 14 0RF Nexplanon 68 mg implant 1 implant subdermal ONCE Qty: 1 0RF
[2023-07-16 12:43] VITALS: BP 144/111; PULSE 99; RESP 18; TEMP 36.8; O2SAT 94
[2023-07-16 13:20] LABS: IDNOW Serial# 08D9AD1C; Strep A Nucleic Acid Negative (Negative)
[2023-07-16 13:35] LABS: IDNOW Serial# BCCEAD1C
[2023-07-16 13:36] LABS: COVID-19 Test Negative (Negative); IDNOW Serial# 6674DD1D; Influenza A Negative (Negative); Influenza B2 Negative (Negative)
[2023-07-16 14:04] LABS: Appearance Urine Clear; Color Urine Dark Yellow; Glucose Urine UA Negative (Negative); Leukocyte Esterase Urine Trace (Negative); Nitrite Urine Negative (Negative); PH 6.5 (5.0-9.0); Specific Gravity - Urine 1.025 (1.005-1.025); UMIC TRIGGER UACC YES; Urine Blood Negative (Negative); Urine Ketones 15 mg/dL (Negative); Urine Protein Trace mg/dL (Neg-Trace)
[2023-07-16 14:05] LABS: UPreg QC Valid YES; Urine Pregnancy NEGATIVE (NEGATIVE)
[2023-07-16 14:07] VITALS: BP 127/81; PULSE 90; RESP 16; TEMP 37.2; O2SAT 95
[2023-07-16 14:07] LABS: Bacteria Urine 1+ (None Seen); Hyaline Casts Urine 0-2 /LPF (0-2); RBC Urine 0-2 /HPF (0-2); WBC Urine 0-5 /HPF (0-5)
[2023-07-16] MEDS: Fluconazole 100 MG TABLET PO (14:08)
== END 2023-07-16 14:45 | disposition home or self-care (01) ==
PROVIDERS: Physician Assistant; Emergency Provider Student in an Organized Health Care Education/Training Program; PCP Student in an Organized Health Care Education/Training Program
DX: B37.2 Candidiasis of skin and nail (principal); J06.9 Acute upper respiratory infection, unspecified; J02.9 Acute pharyngitis, unspecified; R05.9 Cough, unspecified; Z20.822 Contact with and (suspected) exposure to COVID-19; Z79.899 Other long term (current) drug therapy
CPT/HCPCS: 71045; 81001; 81025; 87502; 87635; 87651; 99283

== ENCOUNTER 2023-08-26 04:59 | Emergency (ER) | payer OTHER, SELFPAY ==
--- NOTE | ~2023-08-26 | XR_ITS ---
EXAMINATION: XR CHEST CLINICAL INFORMATION: Cough for one month COMPARISON: 07/16/2023 TECHNIQUE: 2 views of the chest were obtained. FINDINGS: The lungs are clear with no focal consolidation. No evidence of pneumothorax, pulmonary edema, or pleural effusions. The cardiomediastinal silhouette is unremarkable. No acute osseous findings. XR/XR chest 2V IMPRESSION: No acute cardiopulmonary findings.
[2023-08-26 05:02] VITALS: BP 121/67; PULSE 82; RESP 16; TEMP 36.5; O2SAT 97; BMI 42.5
--- NOTE | 2023-08-26 06:47 | PC.NURSE ---
pt calm and cooperative. awaiting too be seen by ed provider. swab sent down to lab. pt resting on left side
[2023-08-26 07:17] LABS: Influenza A PCR NEGATIVE (Negative); Influenza B PCR NEGATIVE (Negative); Resp Syncy Virus RNA Qual PCR NEGATIVE (Negative); SARS COV2 PCR INHOUSE NEGATIVE (Negative)
--- NOTE | 2023-08-26 08:12 | ED.GENADULT ---
HPI - General Adult General Chief complaint: General Medical Stated complaint: coughing up some blood Time Seen by Provider: 08/26/23 07:22 Source: patient Mode of arrival: ambulatory Limitations: no limitations History of Present Illness HPI narrative: Patient is a smoker and has been coughing for a month. Denies fever. States that she feels like she is wheezing occaisionally Onset (ago): month(s) Severity: mild Related Data Home Medications Medication Instructions Recorded Confirmed cariprazine 6 mg capsule (Vraylar) 1 cap PO QAM 01/27/22 01/21/23 cariprazine 1.5 mg capsule 1 cap PO DAILY 02/11/22 01/21/23 (Vraylar) divalproex 250 mg tablet,extended 500 mg PO TID 01/21/23 01/25/23 release 24 hr (Depakote ER) lorazepam 0.5 mg tablet 0.5 mg PO DAILY PRN Anxiety 01/21/23 01/21/23 atomoxetine 60 mg capsule 60 mg PO DAILY 01/24/23 01/24/23 Previous Rx's Medication Instructions Recorded divalproex 250 mg tablet,extended 1,750 mg (7 x 250 mg) PO DAILY 2 01/28/23 release 24 hr (Depakote ER) weeks #98 tabs doxycycline hyclate 100 mg capsule 100 mg PO BID cough 7 days #14 caps 04/28/23 fluconazole 150 mg tablet 150 mg PO DAILY candiadiasis #1 tab 07/16/23 (Diflucan) nystatin 100,000 unit/gram topical 1 appl topical BID #15 grams 07/16/23 ointment albuterol sulfate 90 mcg/actuation 2 puff inhalation Q6H PRN 08/26/23 aerosol inhaler shortness of breath or wheezing #8.5 grams Allergies Allergy/AdvReac Type Severity Reaction Status Date / Time lithium [LITHIUM] Allergy Intermediate HIVES Verified 07/16/23 09:48 nicotine [From NICODERM CQ] Allergy Unknown HIVES FROM Verified 07/16/23 09:48 THE PATCH onion Allergy Throat Verified 07/16/23 09:48 lico Review of Systems Review of Systems: Yes all other systems are reviewed and are negative Neurologic: Denies Sensory deficit (Neuro) PMFSH Past Medical History Medical History Tremor of both hands Mental health disorder Fibromyalgia Anxiety Depression Bipolar 1 disorder Surgical History H/O brain surgery Social History Social History Household Members: None Housing: Apartment Alcohol intake: current Alcohol intake frequency: holidays/special occasions only Alcohol type: wine Patient Tobacco Use Status: Current everyday Tobacco user Tobacco use type: Cigarette Cigarettes Per Day: 10 Years Smoked: 15 Smoked in Last 30 Days: Yes Use of substances other than those prescribed or required for medical reasons: Yes Substance Use Type: Marijuana Advance Directives: No Advance Directives Information Provided: No Patient : No Physical Exam ED Vital Signs: Vital Signs - 24 hr 08/26/23 05:02 Temperature 97.7 F Pulse Rate 82 Respiratory Rate 16 Blood Pressure 121/67 Pulse Oximetry 97 Oxygen Delivery Method Room Air BMI result Body Mass Index 42.5 Const Other: obese anxious Nutritional Appearance: average body habitus and obese Orientation/consciousness: oriented to person and patient oriented x3 Limitations: no limitations HENMT Head: Yes normal to inspection Ears: external ears normal General nose exam: Normal external nose present Mouth: Normal oral and palatal mucosa present and oropharynx normal Throat: Yes posterior oropharynx normal Eyes Other: anisocoria with right eye dilated and left eye constricted pupil Neck Neck: Yes normal visual inspection Chest Chest palpation & inspection: normal inspection of the chest Resp Other: slight wheeze Cardio Jugular venous distension: no JVD Rate: regular rate Rhythm: regular rhythm Heart sounds: S1 normal heart sound present and S2 normal heart sound present GI Inspection: Yes normal to inspection Palpation (GI): Soft to palpation, nontender and No hepatosplenomegaly present Auscultation: normal bowel sounds General: Yes no CVA tenderness Back/Spine/Pelvis Back: no CVA tenderness Skin General skin exam: no rashes or lesions noted Neuro General: oriented to person and patient oriented x3 Cranial nerves: Yes CN's II-XII intact bilaterally Motor exam (neuro): 5/5 motor strength present throughout Sensory Exam: No Sensory deficit (Neuro) Extrem General: Yes normal to inspection Psych Appearance: grossly normal Course Reevaluation(s) Reevaluation #1: patient is a smoker now with slight wheeze will dc home on albuterol MDI Time: 08:20 Reevaluation #2: Smoking cessation: patient counseled about her smoking use and treatments and therapies that she can use to stop. This session was 5 minutes Time: 08:21 Medical Decision Making Differential Diagnosis Differential Diagnoses: The differential diagnosis associated with the presentation includes (pneumonia, COVID, Influenza, RSV, asthma, COPD were all considered) Admission/Observation Consideration of admission/observation: Escalation of care including admission/observation considered (upon arrival patient was considered for admission) Lab Data MDM Lab Attestation statement: I reviewed the patient's lab results. (negative for RSV, flu, COVID) Labs: Lab Results 08/26/23 Range/Units 06:36 Influenza Type A (PCR) NEGATIVE (Negative) Influenza Type B (PCR) NEGATIVE (Negative) RSV RNA Qual (PCR) NEGATIVE (Negative) SARS-CoV-2 RNA (RT-PCR) NEGATIVE (Negative) Independent Interpretation I performed an independent interpretation of an: Plain X-Ray (no infiltrate) Prescription Management I considered prescription management with: Antibiotic (considered but no infiltrate on xray) Chronic Conditions Patient?s care impacted by: Other (psychiatric) Social Determinants Patient?s care significantly limited by Social Determinants of Health including: Other Social Determinant of Health (smoking) Discharge Plan Discharge Clinical Impression: Asthma Patient Disposition: Home, Self-Care Instructions: Asthma (ED) Prescriptions: New albuterol sulfate 90 mcg/actuation HFA aerosol inhaler 2 puff inhalation Q6H PRN (Reason: shortness of breath or wheezing) Qty: 8.5 0RF No Action Vraylar 1.5 mg capsule 1 cap PO DAILY Vraylar 6 mg capsule 1 cap PO QAM divalproex [Depakote ER] 250 mg Tablet Extended Release 24 Hr 500 mg PO TID Rx Instructions: Take 500 mg TID with an additional 250 mg tab in the morning for a total dose of 1750 mg. lorazepam 0.5 mg Tablet 0.5 mg PO DAILY PRN (Reason: Anxiety) atomoxetine 60 mg Capsule 60 mg PO DAILY divalproex [Depakote ER] 250 mg tablet extended release 24 hr 1,750 mg PO DAILY 14 Days Qty: 98 1RF fluconazole [Diflucan] 150 mg tablet 150 mg PO DAILY Qty: 1 0RF Rx Instructions: Please take once in one week nystatin 100,000 unit/gram ointment 1 appl topical BID Qty: 15 0RF doxycycline hyclate 100 mg capsule 100 mg PO BID 7 Days Qty: 14 0RF Nexplanon 68 mg implant 1 implant subdermal ONCE Qty: 1 0RF Referrals: Jeannette Li PA [Primary Care Provider] - 1 week
== END 2023-08-26 08:31 | disposition home or self-care (01) ==
PROVIDERS: Emergency Provider Emergency Medicine; PCP Student in an Organized Health Care Education/Training Program
DX: J45.909 Unspecified asthma, uncomplicated (principal); R04.2 Hemoptysis; R05.9 Cough, unspecified; F17.210 Nicotine dependence, cigarettes, uncomplicated; Z71.6 Tobacco abuse counseling; Z20.822 Contact with and (suspected) exposure to COVID-19; Z20.828 Contact with and (suspected) exposure to other viral communicable diseases
CPT/HCPCS: 0241U; 71046; 99283

== ENCOUNTER 2023-09-16 13:31 | Emergency (ER) | payer OTHER, SELFPAY ==
[2023-09-16] VITALS (7 sets, daily range): BP systolic 113–154; BP diastolic 66–94; PULSE 76–120; RESP 17–20; TEMP 36.6–37.2; O2SAT 95–98; BMI 41.6
[2023-09-16] MEDS: Famotidine/PF 20 MG/2 ML VIAL IVPUSH (13:53)
--- NOTE | 2023-09-16 13:53 | ED.ALLEREA ---
HPI - Allergic Reaction General Chief complaint: Allergic Reaction Stated complaint: Allergic reaction Time Seen by Provider: 09/16/23 13:43 Source: patient and family Mode of arrival: ambulatory Limitations: no limitations History of Present Illness HPI narrative: 28 yo female with PMH of bipolar disorder who denies any known cause of allergic reaction or new exposure - no prior hives who comes in with c/o diffuse hives that are getting worse since saturday. She was started on prednisone took the first 60mg today. She is also taking benadryl. She has no resp issues or n/v but the hives are diffuse. No new medications. This has never happened before. MD complaint: allergic reaction, hives and facial swelling Onset (ago): day(s) (3) Exposure: unknown Symptoms: rash, itching, facial swelling and lip swelling Severity: moderate Treatment prior to arrival: benadryl and steroids Previous Allergic Reaction History: none Related Data Home Medications Medication Instructions Recorded Confirmed cariprazine 6 mg capsule (Vraylar) 1 cap PO QAM 01/27/22 01/21/23 cariprazine 1.5 mg capsule 1 cap PO DAILY 02/11/22 01/21/23 (Vraylar) divalproex 250 mg tablet,extended 500 mg PO TID 01/21/23 01/25/23 release 24 hr (Depakote ER) lorazepam 0.5 mg tablet 0.5 mg PO DAILY PRN Anxiety 01/21/23 01/21/23 atomoxetine 60 mg capsule 60 mg PO DAILY 01/24/23 01/24/23 Previous Rx's Medication Instructions Recorded divalproex 250 mg tablet,extended 1,750 mg (7 x 250 mg) PO DAILY 2 01/28/23 release 24 hr (Depakote ER) weeks #98 tabs doxycycline hyclate 100 mg capsule 100 mg PO BID cough 7 days #14 caps 04/28/23 fluconazole 150 mg tablet 150 mg PO DAILY candiadiasis #1 tab 07/16/23 (Diflucan) nystatin 100,000 unit/gram topical 1 appl topical BID #15 grams 07/16/23 ointment albuterol sulfate 90 mcg/actuation 2 puff inhalation Q6H PRN 08/26/23 aerosol inhaler shortness of breath or wheezing #8.5 grams epinephrine 0.3 mg/0.3 mL 0.3 mg (0.3 mL) IM Q10M PRN 09/16/23 injection, auto-injector anaphylaxis #2 ea Allergies Allergy/AdvReac Type Severity Reaction Status Date / Time lithium [LITHIUM] Allergy Intermediate HIVES Verified 07/16/23 09:48 nicotine [From NICODERM CQ] Allergy Unknown HIVES FROM Verified 07/16/23 09:48 THE PATCH onion Allergy Throat Verified 07/16/23 09:48 swells Review of Systems Review of Systems: Constitutional : No Fever, No Chills ENT/Mouth : positive oral swelling, No Hoarseness, No Swallowing Difficulty Eyes: No Eye Pain, No Swelling, No Redness Cardiovascular : No Chest Pain, No SOB Respiratory : No Cough, No Sputum, No Wheezing, No Smoke Exposure, No Dyspnea Gastrointestinal : No Nausea, No Vomiting, No Diarrhea, No abdominal Pain Genitourinary : No Dysuria, No Urinary Frequency, No Hematuria Musculoskeletal : No joint pain, No Myalgias, No Joint Swelling Skin : No Skin Lesions, positive rash Neuro : No Weakness, No Numbness, No Headache Psych : No Anxiety/Panic, No Depression Heme/Lymph: No Bruising, No Lymphadenopathy Endocrine : No Polyuria, No Polydipsia All other systems reviewed and are negative PMFSH Past Medical History Attestation statement: The following information was validated with the patient. Source: old records reviewed Medical History Tremor of both hands Mental health disorder Fibromyalgia Anxiety Depression Bipolar 1 disorder Surgical History H/O brain surgery Social History Social History Household Members: None Housing: Apartment Alcohol intake: current Alcohol intake frequency: holidays/special occasions only Alcohol type: wine Patient Tobacco Use Status: Current everyday Tobacco user Tobacco use type: Cigarette Cigarettes Per Day: 10 Years Smoked: 15 Smoked in Last 30 Days: Yes Substance Use Type: Marijuana Advance Directives: No Advance Directives Information Provided: No Physical Exam ED Vital Signs: Vital Signs - 24 hr 09/16/23 13:38 09/16/23 13:55 09/16/23 14:00 Temperature 98.9 F Pulse Rate 120 H 91 92 Respiratory Rate 18 17 Blood Pressure 154/94 H 113/72 113/72 Pulse Oximetry 95 97 Oxygen Delivery Method 09/16/23 14:30 09/16/23 16:00 Temperature Pulse Rate 80 76 Respiratory Rate 19 18 Blood Pressure Pulse Oximetry 98 96 Oxygen Delivery Method Room Air BMI result Body Mass Index 41.6 Appearance: Alert. Oriented X3. Mild acute distress. Eyes: Pupils equal, round and reactive to light. ENT: Pharynx dry MM, mild lip swelling otherwise pharynx and tongue are normal appearing Neck: Normal inspection. Neck supple. CVS: tachycardic heart rate and rhythm. Pulses normal. Respiratory: No respiratory distress. Breath sounds normal. Abdomen: Soft and nontender. Skin: Skin warm and dry. Normal skin color. diffuse hives from scalp to ankles Extremities: No lower extremity edema. Neuro: Oriented X 3. No motor deficit. No sensory deficit. Course Course Course Narrative: IV ativan for anxiety Reevaluation(s) Reevaluation #1: swelling has improved but hives are more purple she notes they are painful i have added claritin and labs signed out to Dr. Rodas Medications Administered Discontinued Medications Generic Name Dose Route Start Last Admin Trade Name Freq PRN Reason Stop Dose Admin Epinephrine 0.3 mg 09/16/23 13:43 09/16/23 13:55 Epinephrine 1 Mg/Ml Vial IM 09/16/23 13:44 0.3 mg STAT STA Administration Famotidine 20 mg 09/16/23 13:43 09/16/23 13:53 Famotidine/Pf 20 Mg/2 Ml Vial IVPUSH 09/16/23 13:44 20 mg ONCE ONE Administration Loratadine 10 mg 09/16/23 15:23 09/16/23 15:58 Loratadine 10 Mg Tablet PO 09/16/23 15:24 10 mg ONCE ONE Administration Lorazepam 1 mg 09/16/23 14:08 09/16/23 14:29 Lorazepam 2 Mg/Ml Vial IVPUSH 09/16/23 14:09 1 mg STAT STA Administration Methylprednisolone Sodium Succinate 125 mg 09/16/23 13:43 09/16/23 13:54 Methylprednisolone Sod Succ 125 Mg/2 Ml Vial IVPUSH 09/16/23 13:44 125 mg ONCE ONE Administration Medical Decision Making Medical Decision Making MDM Narrative: 28 yo female hx of bipolar disorder here with unexplained urticaria and after questioning her and grandmother we cannot find a known cause or exposure. At this time given diffuse hives will need IV steroids, epi, IV pepcid. I did relay to her that prednisone can worsen bipolar so that it needs to be monitored. If she improves she will need to monitor her symptoms and carry an epi pen as well as get referral to allergies. Differential Diagnosis Differential Diagnoses: The differential diagnosis associated with the presentation includes allergic reaction, anaphylaxis Admission/Observation Consideration of admission/observation: Escalation of care including admission/observation considered observe after epi Lab Data Labs: Lab Results 09/16/23 Range/Units 14:12 COVID-19 (SUPA) Negative (Negative) COVID-19 Clin Com See Note Independent Historian Clinical information obtained from an independent historian. History obtained from or confirmed by: Other (grandmother) External Record Review External record reviewed: Inpatient record Prescription Management I considered prescription management with: Other Critical Care Time Critical Care Time Critical Care Time: Yes Total Critical Care Time: 35 Attestation: IM epi and observation I attest to this time spent taking care of the patient Discharge Plan Discharge Clinical Impression: Urticaria Allergic reaction Qualifiers: Encounter type: initial encounter Qualified Code(s): T78.40XA - Allergy, unspecified, initial encounter Patient Disposition: Still a Patient Instructions: Urticaria (ED), General Allergic Reaction (ED) Prescriptions: New epinephrine 0.3 mg/0.3 mL auto-injector 0.3 mg IM Q10M PRN (Reason: anaphylaxis) Qty: 2 0RF Rx Instructions: for 2 doses No Action Vraylar 1.5 mg capsule 1 cap PO DAILY Vraylar 6 mg capsule 1 cap PO QAM divalproex [Depakote ER] 250 mg Tablet Extended Release 24 Hr 500 mg PO TID Rx Instructions: Take 500 mg TID with an additional 250 mg tab in the morning for a total dose of 1750 mg. lorazepam 0.5 mg Tablet 0.5 mg PO DAILY PRN (Reason: Anxiety) atomoxetine 60 mg Capsule 60 mg PO DAILY divalproex [Depakote ER] 250 mg tablet extended release 24 hr 1,750 mg PO DAILY 14 Days Qty: 98 1RF fluconazole [Diflucan] 150 mg tablet 150 mg PO DAILY Qty: 1 0RF Rx Instructions: Please take once in one week nystatin 100,000 unit/gram ointment 1 appl topical BID Qty: 15 0RF albuterol sulfate 90 mcg/actuation HFA aerosol inhaler 2 puff inhalation Q6H PRN (Reason: shortness of breath or wheezing) Qty: 8.5 0RF doxycycline hyclate 100 mg capsule 100 mg PO BID 7 Days Qty: 14 0RF Nexplanon 68 mg implant 1 implant subdermal ONCE Qty: 1 0RF
[2023-09-16] MEDS: methylPREDNISolone Sod Succ 125 MG/2 ML VIAL IVPUSH (13:54)
[2023-09-16] MEDS: EPINEPHrine 1 MG/ML VIAL 0.3 MG IM (13:55)
[2023-09-16] MEDS: LORazepam 2 MG/ML VIAL 1 MG IVPUSH (14:29)
[2023-09-16 14:32] LABS: COVID-19 Test Negative (Negative); IDNOW Serial# 08D9AD1C
[2023-09-16] MEDS: Loratadine 10 MG TABLET PO (15:58)
[2023-09-16 16:57] LABS: MANUAL DIFF FLAG NO
[2023-09-16 16:58] LABS: Basophils Percent Auto 0.2 % (0-2); Eosinophils Percent Auto 0.2 % (0-4); Hematocrit 38.8 % (37.0-47.0); Hemoglobin 12.9 g/dl (12.0-16.0); Imm Gran Abs Auto 0.09 X10*3/uL (0.00-0.03); Imm Gran Pct Auto 0.8 % (0.0-0.4); Lymphocytes Absolute Auto 1.6 X10*3/uL (1.2-4.9); Lymphocytes Percent Auto 13.5 % (20-40); Mean Corpuscular HGB Conc 33.2 g/dl (31.0-35.0); Mean Corpuscular Hemoglobin 25.8 pg (27.0-33.0); Mean Corpuscular Volume 77.6 fL (80.0-98.0); Mean Platelet Volume 9.9 fL (9.4-12.3); Monocytes Absolute Auto 0.7 X10*3/uL (0.1-1.2); Monocytes Percent Auto 5.8 % (2-11); Neutrophils Absolute Auto 9.5 x10*3/uL (2.0-8.3); Neutrophils Percent Auto 79.5 % (45-73); Platelet Count 234 X10*3/uL (160-400); Red Cell Distribution Width 12.9 % (11.0-16.0)
[2023-09-16 17:13] LABS: Alanine Aminotransferase 14 U/L (0-31); Albumin Level 3.7 g/dL (3.5-5.0); Alkaline Phosphatase 72 U/L (39-117); Anion Gap 11 (12-20); Aspartate Amino Transferase 15 U/L (5-31); Bilirubin Direct 0.1 mg/dL (0.0-0.5); Bilirubin Total 0.3 mg/dL (0.0-1.0); Blood Urea Nitrogen 14 mg/dL (9-16); Calcium 9.1 mg/dL (8.4-10.2); Carbon Dioxide 24 mmol/L (22-29); Chloride 105 mmol/L (96-108); Creatinine Clr Calc Pharmacy 129.5; Estimated Glomerular Filt Rate > 60; Glucose Random 158 mg/dL (60-115); Potassium 3.7 mmol/L (3.3-5.1); Sodium 136 mmol/L (135-145); Total Protein 6.6 g/dL (6.5-8.0)
[2023-09-16 18:15] LABS: Erythrocyte Sedimentation Rate 4 MM/HR (0-20)
[2023-09-16] MEDS: diphenhydrAMINE HCL 50 MG/ML VIAL IVPUSH (20:09)
--- NOTE | 2023-09-16 21:09 | PC.NURSE ---
2000: This RN in to bring pt benadryl as prescribed. Pt upset and crying asking why they were giving her the medication if it hasn't worked . This RN explained that sometimes it takes multiple doses before she will feel the effect. This RN also applied ice packs to back, stomach and legs; areas in which patient indicated were the most bothersome with rash and itchiness. Mother at the bedside and also trying to explain process fr referrals. This RN also explained some home treatment remedies like cold compress and cool showers that may help make symptoms more bearable. pt slightly more calm at this time.
--- NOTE | 2023-09-16 21:14 | PC.NURSE ---
Dr. Lala at the bedside to see how patient was feeling, patient became very upset, yelling and crying. Patient started throwing ice packs around the room and swearing, noted by a staff member that patient was recording. data entry operator called security. crossing guard and mother in room with this RN trying to calm her down and de-escalate the situation. Patient continued to cry and yell profanities, stating the medication was not working. Patient refused medication that was ordered and demanded discharge paperwork. Multiple attempts made to explain the process and patient stated she did not care . This RN attempted to review discharge instructions but patient kept interrupting. During review of medications patient stated the only one I don;t have is the epi pen and none of them work . Patient started making remarks about the doctor being from a different country. Patient was told that was inappropriate and not ok. IV removed and given discharge paperwork. Patient and mother escorted out by security.
== END 2023-09-16 21:00 | disposition home or self-care (01) ==
PROVIDERS: Emergency Medicine; Emergency Provider Internal Medicine; PCP Student in an Organized Health Care Education/Training Program
DX: T78.40XA Allergy, unspecified, initial encounter (principal); L50.9 Urticaria, unspecified; X58.XXXA Exposure to other specified factors, initial encounter; Z11.52 Encounter for screening for COVID-19
CPT/HCPCS: 36415; 80048; 80076; 85025; 85652; 87635; 96372; 96374; 96375; 99284; J0171; J1200; J2060; J2930

== ENCOUNTER 2023-09-19 12:30 | Outpatient (RCR) | payer OTHER, SELFPAY ==
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
== END 2023-09-19 23:59 | disposition home or self-care (01) ==
LOC: HO.PHPA 12:30
PROVIDERS: Visit Provider Psychiatry & Neurology Psychiatry
DX: F31.4 Bipolar disorder, current episode depressed, severe, without psychotic features (principal); F90.9 Attention-deficit hyperactivity disorder, unspecified type; F41.1 Generalized anxiety disorder
CPT/HCPCS: 90791; 90853

== ENCOUNTER 2023-10-02 21:53 | Emergency (ER) | payer OTHER, SELFPAY ==
[2023-10-02 21:56] VITALS: PULSE 97; RESP 20; TEMP 37; O2SAT 99; BMI 41.6
[2023-10-02 22:14] VITALS: BP 133/90; PULSE 100; RESP 20; TEMP 37.1; O2SAT 96
--- NOTE | 2023-10-02 22:37 | PC.NURSE ---
supplemental triage note: patient states uses pharmacy [facility] on [address] in [place], lives solo in apartment, denies recent admissions for this stressor (recent losses), states she recently lost aunt, grandmother and grandfather and states she forgot thop take todays am medications. briefly eloped from triage area, drove herself here.
[2023-10-02] MEDS: LORazepam 1 MG TABLET PO (22:40)
[2023-10-02 23:03] LABS: MANUAL DIFF FLAG NO
--- NOTE | 2023-10-02 23:05 | ED.PSYCH ---
HPI - Psych General Chief Complaint: Psychiatric Symptoms Stated Complaint: Crisis Time Seen by Provider: 10/02/23 22:18 Source: patient Mode of arrival: ambulatory Limitations: no limitations History of Present Illness HPI Narrative: Patient comes to the emergency room complaining of suicidal ideation, hearing voices telling her to kill herself. Patient has a psychiatrist who recently asked her to start Wellbutrin which patient has not picked up from the pharmacy. Patient states that she forgot to take her meds today. Related Data Home Medications Medication Instructions Recorded Confirmed cariprazine 6 mg capsule (Vraylar) 1 cap PO QAM 01/27/22 01/21/23 cariprazine 1.5 mg capsule 1 cap PO DAILY 02/11/22 01/21/23 (Vraylar) divalproex 250 mg tablet,extended 500 mg PO TID 01/21/23 01/25/23 release 24 hr (Depakote ER) lorazepam 0.5 mg tablet 0.5 mg PO DAILY PRN Anxiety 01/21/23 01/21/23 atomoxetine 60 mg capsule 60 mg PO DAILY 01/24/23 01/24/23 Previous Rx's Medication Instructions Recorded divalproex 250 mg tablet,extended 1,750 mg (7 x 250 mg) PO DAILY 2 01/28/23 release 24 hr (Depakote ER) weeks #98 tabs doxycycline hyclate 100 mg capsule 100 mg PO BID cough 7 days #14 caps 04/28/23 fluconazole 150 mg tablet 150 mg PO DAILY candiadiasis #1 tab 07/16/23 (Diflucan) nystatin 100,000 unit/gram topical 1 appl topical BID #15 grams 07/16/23 ointment albuterol sulfate 90 mcg/actuation 2 puff inhalation Q6H PRN 08/26/23 aerosol inhaler shortness of breath or wheezing #8.5 grams diphenhydramine HCl 25 mg capsule 50 mg (2 x 25 mg) PO TID PRN 09/16/23 (Benadryl) allergic reaction #30 caps epinephrine 0.3 mg/0.3 mL 0.3 mg (0.3 mL) IM Q10M PRN 09/16/23 injection, auto-injector anaphylaxis #2 ea famotidine 20 mg tablet (Pepcid) 20 mg PO BID #30 tabs 09/16/23 montelukast 10 mg tablet 10 mg PO BEDTIME #30 tabs 09/16/23 (Singulair) prednisone 20 mg tablet 40 mg (2 x 20 mg) PO DAILY #10 tabs 09/16/23 Allergies Allergy/AdvReac Type Severity Reaction Status Date / Time lithium [LITHIUM] Allergy Intermediate HIVES Verified 10/02/23 21:56 nicotine [From NICODERM CQ] Allergy Unknown HIVES FROM Verified 10/02/23 21:56 THE PATCH onion Allergy Throat Verified 10/02/23 21:56 swells Review of Systems Review of Systems: Constitutional : No Weight loss, No Fever, No Chills, No Night Sweats, No Fatigue, No Malaise ENT/Mouth : No Hearing loss, No Ear Pain, No Nasal Congestion, No Sinus Pain, No Hoarseness, No sore throat, No Rhinorrhea, No Swallowing Difficulty Eyes: No Eye Pain, No Swelling, No Redness, No Foreign Body, No Discharge, No Vision Changes Cardiovascular : No Chest Pain, No SOB, No Dyspnea on Exertion, No Orthopnea, No Edema, No Palpitations Respiratory : No Cough, No Sputum, No Wheezing, No Smoke Exposure, No Dyspnea Gastrointestinal : No Nausea, No Vomiting, No Diarrhea, No Constipation, No abdominal Pain, No Hematochezia, No Melena Genitourinary : no irregular bleeding, No Dysuria, No Urinary Frequency, No Hematuria, No Urinary Incontinence, No Urgency, No Flank Pain, No Urinary Flow Changes, No Hesitancy Musculoskeletal : No joint pain, No Myalgias, No Joint Swelling Skin : No Skin Lesions, No rash Neuro : No Weakness, No Numbness, No Paresthesias, No Loss of Consciousness, No Dizziness, No Headache Psych : Blowing of anxiety, depression, auditory hallucinations, SI, no HI Heme/Lymph: No Bruising, No Bleeding,No Lymphadenopathy Endocrine : No Polyuria, No Polydipsia, No Temperature Intolerance PMFSH Past Medical History Medical History Tremor of both hands Mental health disorder Fibromyalgia Anxiety Depression Bipolar 1 disorder Surgical History H/O brain surgery Social History Social History Household Members: None Housing: Apartment Alcohol intake: current Alcohol intake frequency: holidays/special occasions only Alcohol type: wine Patient Tobacco Use Status: Current everyday Tobacco user Tobacco use type: Cigarette Cigarettes Per Day: 10 Years Smoked: 15 Substance Use Type: Marijuana Advance Directives: No Advance Directives Information Provided: No Physical Exam Vital Signs: Vital Signs: Last Vital Signs Temp 98.7 F 10/02/23 22:14 Pulse 100 10/02/23 22:14 Resp 20 10/02/23 22:14 BP 133/90 H 10/02/23 22:14 Pulse Ox 96 10/02/23 22:14 O2 Del Method Room Air 10/02/23 22:14 BMI result Body Mass Index 41.6 Const: Other: Appearance: Alert. Oriented X3. No acute distress. 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 Neck: Normal inspection. Neck supple. No lymph nodes noted. No crepitus CVS: Normal heart rate and rhythm. Pulses normal. Normal S1 and S2 Respiratory: No respiratory distress. Breath sounds normal. No Wheezing. No rales Abdomen: Soft and nontender. No rigidity. No distention. Skin: Skin warm and dry. Normal skin color. Normal skin turgor. Extremities: No lower extremity edema. No Lacerations. No Rash Neuro: Oriented X 3. No motor deficit. No sensory deficit. Moving all extremities. No slurred speech. CN 2 through 12 grossly intact Psych: calm, cooperative, normal affect Course Course Course Narrative: - Medications Administered Discontinued Medications Generic Name Dose Route Start Last Admin Trade Name Josy PRN Reason Stop Dose Admin Lorazepam 1 mg 10/02/23 22:35 10/02/23 22:40 Lorazepam 1 Mg Tablet PO 10/02/23 22:36 1 mg ONCE ONE Administration Medical Decision Making Medical Decision Making MDM Narrative: -my interpretation of labs: Hematology unremarkable, at baseline. Chemistry pending. Urinalysis negative for UTI, urine toxicology pending Differential Diagnosis Differential Diagnoses: The differential diagnosis associated with the presentation includes (Anxiety, depression, bipolar disorder) Admission/Observation Consideration of admission/observation: Escalation of care including admission/observation considered (Care team consult pending, disposition will be determined after the care team consult.) Lab Data 10/02/23 22:49 10/02/23 22:48 Labs: Lab Results 10/02/23 10/02/23 10/02/23 Range/Units 22:47 22:48 22:49 WBC 9.3 (4.8-10.8) X10*3/uL RBC 4.97 (4.20-5.50) X10*6/uL Hgb 13.1 (12.0-16.0) g/dl Hct 38.8 (37.0-47.0) % MCV 78.1 L (80.0-98.0) fL MCH 26.4 L (27.0-33.0) pg MCHC 33.8 (31.0-35.0) g/dl RDW 13.3 (11.0-16.0) % Plt Count 227 (160-400) X10*3/uL MPV 9.9 (9.4-12.3) fL Immature Gran % (Auto) 0.4 (0.0-0.4) % Neut % (Auto) 45.5 (45-73) % Lymph % (Auto) 43.6 H (20-40) % [place]bour % (Auto) 10.1 (2-11) % Eos % (Auto) 0.1 (0-4) % Baso % (Auto) 0.3 (0-2) % Lymph # (Auto) 4.0 (1.2-4.9) X10*3/uL Barbour # (Auto) 0.9 (0.1-1.2) X10*3/uL Eos # (Auto) 0.0 (0.0-0.4) X10*3/uL Baso # (Auto) 0.0 (0.0-0.2) X10*3/uL Abs Immat Gran (auto) 0.04 H (0.00-0.03) X10*3/uL Absolute Neuts (auto) 4.2 (2.0-8.3) x10*3/uL Absolute Nucleated RBC 0.000 (0.0-0.012) X10*3/uL Nucleated RBC % (auto) 0.0 (0.0-0.2) /100WBC Sodium 141 (135-145) mmol/L Potassium 3.9 (3.3-5.1) mmol/L Chloride 109 H (96-108) mmol/L Carbon Dioxide 24 (22-29) mmol/L Anion Gap 12 (12-20) BUN 11 (9-16) mg/dL Creatinine 0.65 (0.5-1.4) mg/dL Estim Creat Clear Calc 139.5 Estimated GFR > 60 Random Glucose 156 H (60-115) mg/dL Calcium 9.1 (8.4-10.2) mg/dL Total Bilirubin 0.2 (0.0-1.0) mg/dL AST 14 (5-31) U/L ALT 13 (0-31) U/L Alkaline Phosphatase 79 (39-117) U/L Total Protein 7.1 (6.5-8.0) g/dL Albumin 3.8 (3.5-5.0) g/dL Urine Color Yellow Urine Appearance Cloudy Urine pH 6.0 (5.0-9.0) Ur Specific [place] >= 1.030 H (1.005-1.025) Urine Protein Trace (Neg-Trace) mg/dL Urine Glucose (UA) >=1000 H (Negative) mg/dL Urine Ketones Trace (Negative) mg/dL Urine Blood Negative (Negative) Urine Nitrite Negative (Negative) Ur Leukocyte Esterase Negative (Negative) Urine RBC 0-2 (0-2) /HPF Urine WBC 0-5 (0-5) /HPF Ur Squamous Epith Cells >20 (0-2) /HPF Urine Bacteria 4+ (None Seen) Hyaline Casts 0-2 (0-2) /LPF Urine Test NEGATIVE (NEGATIVE) Urine Opiates Screen Not Detected (Not Detect) Urine Fentanyl Screen Not Detected (Not Detect) Ur Barbiturates Screen Not Detected (Not Detect) Valproic Acid 59.9 (50.0-100.0) mcg/mL Ur Phencyclidine Scrn Not Detected (Not Detect) Ur Amphetamines Screen Not Detected (Not Detect) U Benzodiazepines Scrn Not Detected (Not Detect) Urine Cocaine Screen Not Detected (Not Detect) U Marijuana (THC) Screen POSITIVE H (Not Detect) Ethyl Alcohol < 10 mg/dL Discharge Plan Discharge Clinical Impression: Depression, Auditory hallucination Patient Disposition: Still a Patient Prescriptions: No Action Vraylar 1.5 mg capsule 1 cap PO DAILY Vraylar 6 mg capsule 1 cap PO QAM divalproex [Depakote ER] 250 mg Tablet Extended Release 24 Hr 500 mg PO TID Rx Instructions: Take 500 mg TID with an additional 250 mg tab in the morning for a total dose of 1750 mg. lorazepam 0.5 mg Tablet 0.5 mg PO DAILY PRN (Reason: Anxiety) atomoxetine 60 mg Capsule 60 mg PO DAILY divalproex [Depakote ER] 250 mg tablet extended release 24 hr 1,750 mg PO DAILY 14 Days Qty: 98 1RF fluconazole [Diflucan] 150 mg tablet 150 mg PO DAILY Qty: 1 0RF Rx Instructions: Please take once in one week nystatin 100,000 unit/gram ointment 1 appl topical BID Qty: 15 0RF albuterol sulfate 90 mcg/actuation HFA aerosol inhaler 2 puff inhalation Q6H PRN (Reason: shortness of breath or wheezing) Qty: 8.5 0RF doxycycline hyclate 100 mg capsule 100 mg PO BID 7 Days Qty: 14 0RF epinephrine 0.3 mg/0.3 mL auto-injector 0.3 mg IM Q10M PRN (Reason: anaphylaxis) Qty: 2 0RF Rx Instructions: for 2 doses diphenhydramine HCl [Benadryl] 25 mg capsule 50 mg PO TID PRN (Reason: allergic reaction) Qty: 30 0RF montelukast [Singulair] 10 mg tablet 10 mg PO BEDTIME Qty: 30 0RF prednisone 20 mg tablet 40 mg PO DAILY Qty: 10 0RF famotidine [Pepcid] 20 mg tablet 20 mg PO BID Qty: 30 0RF Nexplanon 68 mg implant 1 implant subdermal ONCE Qty: 1 0RF Interventions: [place]-Suicide Risk Severity Scale Last Done: 10/02/23 23:54
[2023-10-02 23:06] LABS: Basophils Percent Auto 0.3 % (0-2); Eosinophils Percent Auto 0.1 % (0-4); Hematocrit 38.8 % (37.0-47.0); Hemoglobin 13.1 g/dl (12.0-16.0); Imm Gran Abs Auto 0.04 X10*3/uL (0.00-0.03); Imm Gran Pct Auto 0.4 % (0.0-0.4); Lymphocytes Percent Auto 43.6 % (20-40); Mean Corpuscular HGB Conc 33.8 g/dl (31.0-35.0); Mean Corpuscular Hemoglobin 26.4 pg (27.0-33.0); Mean Corpuscular Volume 78.1 fL (80.0-98.0); Mean Platelet Volume 9.9 fL (9.4-12.3); Monocytes Absolute Auto 0.9 X10*3/uL (0.1-1.2); Monocytes Percent Auto 10.1 % (2-11); Neutrophils Absolute Auto 4.2 x10*3/uL (2.0-8.3); Neutrophils Percent Auto 45.5 % (45-73); Platelet Count 227 X10*3/uL (160-400); Red Blood Count 4.97 X10*6/uL (4.20-5.50); Red Cell Distribution Width 13.3 % (11.0-16.0); White Blood Count 9.3 X10*3/uL (4.8-10.8)
[2023-10-02 23:12] LABS: Appearance Urine Cloudy; Color Urine Yellow; Glucose Urine UA >=1000 mg/dL (Negative); Leukocyte Esterase Urine Negative (Negative); Nitrite Urine Negative (Negative); Specific Gravity - Urine >= 1.030 (1.005-1.025); UMIC TRIGGER UACC YES; Urine Blood Negative (Negative); Urine Ketones Trace mg/dL (Negative); Urine Protein Trace mg/dL (Neg-Trace)
[2023-10-02 23:13] LABS: UPreg QC Valid YES; Urine Pregnancy NEGATIVE (NEGATIVE)
[2023-10-02 23:15] LABS: Bacteria Urine 4+ (None Seen); Hyaline Casts Urine 0-2 /LPF (0-2); RBC Urine 0-2 /HPF (0-2); Squamous Epithelial Cell Urine >20 /HPF (0-2); WBC Urine 0-5 /HPF (0-5)
[2023-10-02 23:21] LABS: Ethanol < 10 mg/dL; Valproate 59.9 mcg/mL (50.0-100.0)
[2023-10-02 23:23] LABS: Alanine Aminotransferase 13 U/L (0-31); Albumin Level 3.8 g/dL (3.5-5.0); Alkaline Phosphatase 79 U/L (39-117); Anion Gap 12 (12-20); Aspartate Amino Transferase 14 U/L (5-31); Bilirubin Total 0.2 mg/dL (0.0-1.0); Blood Urea Nitrogen 11 mg/dL (9-16); Calcium 9.1 mg/dL (8.4-10.2); Carbon Dioxide 24 mmol/L (22-29); Chloride 109 mmol/L (96-108); Creatinine Clr Calc Pharmacy 139.5; Estimated Glomerular Filt Rate > 60; Glucose Random 156 mg/dL (60-115); Potassium 3.9 mmol/L (3.3-5.1); Sodium 141 mmol/L (135-145); Total Protein 7.1 g/dL (6.5-8.0)
[2023-10-02 23:32] LABS: Amphetamine Screen Urine Not Detected (Not Detect); Barbiturates, Urine Not Detected (Not Detect); Benzodiazepines Screen Urine Not Detected (Not Detect); Cannabinoid Screen Urine POSITIVE (Not Detect); Cocaine Screen Urine Not Detected (Not Detect); Fentanyl, urine Not Detected (Not Detect); Opiate Screen Urine Not Detected (Not Detect); Phencyclidine Screen Urine Not Detected (Not Detect)
[2023-10-03 05:43] VITALS: BP 103/53; PULSE 83; RESP 17; TEMP 36.7; O2SAT 97
--- NOTE | 2023-10-03 08:52 | PC.NURSE ---
pts right pupil significantly more dilated than her left, informed MD Darden of this. no previous notes on the matter. unknown if this is pts baseline. pt is tearful and anxious.
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
--- NOTE | 2023-10-03 09:06 | PC.NURSE ---
CARE team at bedside to consult on pt
--- NOTE | 2023-10-03 09:41 | PC.NURSE ---
pt irritable, scream at staff. continually on the phone in the back room yelling at her mom for giving staff collateral info
--- NOTE | 2023-10-03 09:58 | PC.NURSE ---
pt refused all morning meds despite pt being concerned regarding her Depakote level
[2023-10-03 11:42] LABS: COVID-19 Test Negative (Negative); IDNOW Serial# 08D9AD1C
--- NOTE | 2023-10-03 12:14 | MHC.CARE ---
Addendum entered by Shae Mcneil 10/03/23 15:02: Patient was accepted into [facility] in [place]. 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
== END 2023-10-03 14:03 ==
PROVIDERS: Emergency Medicine; Emergency Provider Emergency Medicine Emergency Medical Services
DX: R45.851 Suicidal ideations (principal); F33.1 Major depressive disorder, recurrent, moderate; R44.0 Auditory hallucinations; F17.210 Nicotine dependence, cigarettes, uncomplicated; Z11.52 Encounter for screening for COVID-19; Z20.822 Contact with and (suspected) exposure to COVID-19; Z79.899 Other long term (current) drug therapy; Z71.6 Tobacco abuse counseling
CPT/HCPCS: 36415; 80053; 80164; 80307; 81001; 81025; 85025; 87635; 99284; S9485

== ENCOUNTER 2023-11-18 07:14 | Emergency (ER) | payer OTHER, SELFPAY ==
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
[2023-11-18 07:21] VITALS: BP 118/52; BP 158/96; PULSE 102; PULSE 134; RESP 22; TEMP 36.9; O2SAT 96; O2SAT 99; BMI 41.6
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
== END 2023-11-18 10:20 | disposition home or self-care (01) ==
PROVIDERS: Emergency Provider Emergency Medicine; PCP Student in an Organized Health Care Education/Training Program
DX: S09.90XA Unspecified injury of head, initial encounter (principal); R51.9 Headache, unspecified; Y04.2XXA Assault by strike against or bumped into by another person, initial encounter; Y93.9 Activity, unspecified; Y92.9 Unspecified place or not applicable; Y99.9 Unspecified external cause status
CPT/HCPCS: 70450; 99282; 99284

== ENCOUNTER 2024-04-21 16:51 | Emergency (ER) | payer OTHER, SELFPAY ==
--- NOTE | ~2024-04-21 | XR_ITS ---
EXAMINATION: XR LUMBOSACRAL SPINE CLINICAL INFORMATION: Back pain COMPARISON: None available. TECHNIQUE: Three views of the lumbosacral spine. FINDINGS: The vertebral bodies and posterior elements are normal. The disc spaces are preserved and the vertebral alignment is normal. The paraspinal soft tissues are normal. XR/XR lumbar spine 2-3V IMPRESSION: Unremarkable examination.
[2024-04-21 17:32] VITALS: BP 141/99; PULSE 77; RESP 20; TEMP 36.7; O2SAT 99; BMI 41.9
--- NOTE | 2024-04-21 17:36 | ED_ITS ---
HPI - General Adult General Chief complaint: Back Pain/Injury Stated complaint: low back pain, ref by pcp Time Seen by Provider: 04/21/24 21:09 History of Present Illness ED Provider: Dr. Patricia Sanches HPI narrative: Patient comes to the emergency room complaining of lumbar pain for 2 weeks. Patient denies any injuries, no falls or car accidents. Patient denies urinary/fecal incontinence/retention. Patient states the pain is local and does not radiate. Patient denies fever or chills, no URI or UTI symptoms Related Data Home Medications ?Medication ?Instructions ?Recorded ?Confirmed cariprazine 6 mg capsule (Vraylar) 1 cap PO QAM 01/27/22 10/03/23 cariprazine 1.5 mg capsule 1 cap PO DAILY 02/11/22 10/03/23 (Vraylar) divalproex 250 mg tablet,extended 500 mg PO TID 01/21/23 10/03/23 release 24 hr (Depakote ER) lorazepam 0.5 mg tablet 0.5 mg PO DAILY PRN Anxiety 01/21/23 10/03/23 atomoxetine 60 mg capsule 60 mg PO DAILY 01/24/23 10/03/23 bupropion HCl 150 mg 24 hr tablet, 150 mg PO DAILY 10/03/23 10/03/23 extended release Previous Rx's ?Medication ?Instructions ?Recorded divalproex 250 mg tablet,extended 1,750 mg (7 x 250 mg) PO DAILY 2 01/28/23 release 24 hr (Depakote ER) weeks #98 tabs doxycycline hyclate 100 mg capsule 100 mg PO BID cough 7 days #14 caps 04/28/23 fluconazole 150 mg tablet 150 mg PO DAILY candiadiasis #1 tab 07/16/23 (Diflucan) nystatin 100,000 unit/gram topical 1 appl topical BID #15 grams 07/16/23 ointment albuterol sulfate 90 mcg/actuation 2 puff inhalation Q6H PRN 08/26/23 aerosol inhaler shortness of breath or wheezing #8.5 grams diphenhydramine HCl 25 mg capsule 50 mg (2 x 25 mg) PO TID PRN 09/16/23 (Benadryl) allergic reaction #30 caps epinephrine 0.3 mg/0.3 mL 0.3 mg (0.3 mL) IM Q10M PRN 09/16/23 injection, auto-injector anaphylaxis #2 ea famotidine 20 mg tablet (Pepcid) 20 mg PO BID #30 tabs 09/16/23 montelukast 10 mg tablet 10 mg PO BEDTIME #30 tabs 09/16/23 (Singulair) prednisone 20 mg tablet 40 mg (2 x 20 mg) PO DAILY #10 tabs 09/16/23 cyclobenzaprine 10 mg tablet 10 mg PO TID PRN muscle spasm #7 04/21/24 tabs ketorolac 10 mg tablet 10 mg PO BID #7 tabs 04/21/24 Allergies Allergy/AdvReac Type Severity Reaction Status Date / Time lithium [LITHIUM] Allergy Intermediate HIVES Verified 04/21/24 17:35 nicotine [From [facility]] Allergy Unknown HIVES FROM Verified 04/21/24 17:35 THE PATCH onion Allergy Throat Verified 04/21/24 17:35 lico Review of Systems Review of Systems: Constitutional : No Weight loss, No Fever, No Chills, No Night Sweats, No Fatigue, No Malaise ENT/Mouth : No Hearing loss, No Ear Pain, No Nasal Congestion, No Sinus Pain, No Hoarseness, No sore throat, No Rhinorrhea, No Swallowing Difficulty Eyes: No Eye Pain, No Swelling, No Redness, No Foreign Body, No Discharge, No Vision Changes Cardiovascular : No Chest Pain, No SOB, No Dyspnea on Exertion, No Orthopnea, No Edema, No Palpitations Respiratory : No Cough, No Sputum, No Wheezing, No Smoke Exposure, No Dyspnea Gastrointestinal : No Nausea, No Vomiting, No Diarrhea, No Constipation, No abdominal Pain, No Hematochezia, No Melena Genitourinary : no irregular bleeding, No Dysuria, No Urinary Frequency, No He maturia, No Urinary Incontinence, No Urgency, No Flank Pain, No Urinary Flow Changes, No Hesitancy Musculoskeletal : Complaining of localized lumbar pain, No joint pain, No Myalgias, No Joint Swelling Skin : No Skin Lesions, No rash Neuro : No Weakness, No Numbness, No Paresthesias, No Loss of Consciousness, No Dizziness, No Headache Psych : No Anxiety/Panic, No Depression, No SI/HI/AH/VH, No Social Issues, Heme/Lymph: No Bruising, No Bleeding,No Lymphadenopathy Endocrine : No Polyuria, No Polydipsia, No Temperature Intolerance [facility] Past Medical History Medical History Tremor of both hands Mental health disorder Fibromyalgia Anxiety Depression Bipolar 1 disorder Surgical History H/O brain surgery Social History Social History Household Members: None Housing: Apartment Alcohol intake: current Alcohol intake frequency: holidays/special occasions only Alcohol type: wine Patient Tobacco Use Status: Current everyday Tobacco user Tobacco use type: Cigarette Cigarettes Per Day: 10 Years Smoked: 15 Smoked in Last 30 Days: No Use of substances other than those prescribed or required for medical reasons: No Substance Use Type: Marijuana Advance Directives: No Advance Directives Information Provided: No Do you have a plan to hurt others: No Plan Patient : No Physical Exam ED Vital Signs: Vital Signs - 24 hr 04/21/24 17:32 04/21/24 18:19 04/21/24 21:29 Temperature 98.0 F 97.7 F 98.1 F Pulse Rate 77 63 65 Respiratory Rate 20 16 16 Blood Pressure 141/99 H 124/63 111/63 Pulse Oximetry 99 99 96 Oxygen Delivery Method Room Air Room Air Room Air 04/21/24 21:40 Temperature 98.1 F Pulse Rate 65 Respiratory Rate 16 Blood Pressure 111/63 Pulse Oximetry 96 Oxygen Delivery Method Room Air BMI result Body Mass Index 41.9 Const Other: Appearance: Alert. Oriented X3. No acute distress. Eyes: Pupils equal, round and reactive to light. ENT: Pharynx normal. Neck: Normal inspection. Neck supple. No lymph nodes noted. No crepitus CVS: Normal heart rate and rhythm. Pulses normal. Normal S1 and S2 Respiratory: No respiratory distress. Breath sounds normal. No Wheezing. No rales Abdomen: Soft and nontender. No rigidity. No distention. Back: No pain to palpation over the thoracic spine, no direct pain over the lumbar spine, pain mostly on the lateral sides. Negative straight leg raise test bilaterally, no ecchymosis no swelling, no CVA tenderness Skin: Skin warm and dry. Normal skin color. Normal skin turgor. Extremities: No lower extremity edema. No Lacerations. No Rash Neuro: Oriented X 3. No motor deficit. No sensory deficit. Moving all extremities. No slurred speech. CN 2 through 12 grossly intact Psych: calm, cooperative, normal affect Course Course Course Narrative: RME: [employer] done by NOHEMY Beal. 29-year-old female presents to ED for low back pain without any trauma. Patient states back pain worse on movement. Patient denies any fever, chills, nausea, vomiting, abdominal pain. His exam positive for lumbar spine tenderness on palpation. X-ray ordered. Medications Administered Discontinued Medications Generic Name Dose Route Start Last Admin Trade Name Josy PRN Reason Stop Dose Admin Dexamethasone Sodium Phosphate 4 mg 04/21/24 21:15 04/21/24 21:21 Dexamethasone Sod Phosphate 4 Mg/Ml Vial IM 04/21/24 21:16 4 mg ONCE ONE Administration Ketorolac Tromethamine 60 mg 04/21/24 21:15 04/21/24 21:21 Ketorolac Tromethamine 60 Mg/2 Ml Vial IM 04/21/24 21:16 60 mg ONCE ONE Administration Medical Decision Making Medical Decision Making [facility] Narrative: Patient physical exam, patient's pain likely musculoskeletal. -My interpretation of lumbar x-ray: No obvious abnormality. -patient was given IM Toradol and dexamethasone to help with the symptoms. -Discussed with the patient that given the length of her symptoms, she will probably need physical therapy Differential Diagnosis Differential Diagnoses: The differential diagnosis associated with the presentation includes (Musculoskeletal pain, sciatica, herniated disc, spondylolisthesis) Independent Interpretation I performed an independent interpretation of an: Plain X-Ray Radiology Impression Discussion of test interpretation with radiology: I have reviewed the radiologist's reading. Radiologist Impression: The vertebral bodies and posterior elements are normal. The disc spaces are preserved and the vertebral alignment is normal. The paraspinal soft tissues are normal. XR/XR lumbar spine 2-3V IMPRESSION: Unremarkable examination. Discharge Plan Discharge Clinical Impression: Lumbar back pain Patient Disposition: Home, Self-Care Instructions: Back Pain (ED) Additional Instructions: Please follow-up with your primary care physician tomorrow. If you have any worsening or new symptoms, please return to the emergency room or call 911 Prescriptions: New ketorolac 10 mg tablet 10 mg PO BID Qty: 7 0RF Rx Instructions: maximum total duration of 5 days from all oral, intranasal, or parenteral formulations cyclobenzaprine 10 mg tablet 10 mg PO TID PRN (Reason: muscle spasm) Qty: 7 0RF No Action Vraylar 1.5 mg capsule 1 cap PO DAILY Vraylar 6 mg capsule 1 cap PO QAM divalproex [Depakote ER] 250 mg Tablet Extended Release 24 Hr 500 mg PO TID Rx Instructions: Take 500 mg TID with an additional 250 mg tab in the morning for a total dose of 1750 mg. lorazepam 0.5 mg Tablet 0.5 mg PO DAILY PRN (Reason: Anxiety) atomoxetine 60 mg Capsule 60 mg PO DAILY divalproex [Depakote ER] 250 mg tablet extended release 24 hr 1,750 mg PO DAILY 14 Days Qty: 98 1RF fluconazole [Diflucan] 150 mg tablet 150 mg PO DAILY Qty: 1 0RF Rx Instructions: Please take once in one week nystatin 100,000 unit/gram ointment 1 appl topical BID Qty: 15 0RF albuterol sulfate 90 mcg/actuation HFA aerosol inhaler 2 puff inhalation Q6H PRN (Reason: shortness of breath or wheezing) Qty: 8.5 0RF doxycycline hyclate 100 mg capsule 100 mg PO BID 7 Days Qty: 14 0RF epinephrine 0.3 mg/0.3 mL auto-injector 0.3 mg IM Q10M PRN (Reason: anaphylaxis) Qty: 2 0RF Rx Instructions: for 2 doses diphenhydramine HCl [Benadryl] 25 mg capsule 50 mg PO TID PRN (Reason: allergic reaction) Qty: 30 0RF montelukast [Singulair] 10 mg tablet 10 mg PO BEDTIME Qty: 30 0RF prednisone 20 mg tablet 40 mg PO DAILY Qty: 10 0RF famotidine [Pepcid] 20 mg tablet 20 mg PO BID Qty: 30 0RF bupropion HCl 150 mg tablet extended release 24 hr 150 mg PO DAILY Nexplanon 68 mg implant 1 implant subdermal ONCE Qty: 1 0RF Interventions: ED Discharge Assessment Last Done: 04/21/24 21:40 Discharge Date/Time: 04/21/24 21:41 Print Language: Yakut
[2024-04-21 18:19] VITALS: BP 124/63; PULSE 63; RESP 16; TEMP 36.5; O2SAT 99
--- NOTE | 2024-04-21 20:06 | PC.NURSE ---
pt requesting assistance out of bed at this time, pt 1A to bathroom, pt reports pain reduces with ambulation but increases while sitting. pt tearful at time of attempting to sit up. pt ambulated to bathroom with steady gait at this time.
[2024-04-21] MEDS: dexAMETHasone sod phosphate 4 MG/ML VIAL IM (21:21)
[2024-04-21] MEDS: Ketorolac Tromethamine 60 MG/2 ML VIAL IM (21:21)
--- NOTE | 2024-04-21 21:23 | PC.NURSE ---
pt medicated per mar for 10/10 lower backpain, tolerated well.
[2024-04-21 21:29] VITALS: BP 111/63; PULSE 65; RESP 16; TEMP 36.7; O2SAT 96
[2024-04-21 21:40] VITALS: BP 111/63; PULSE 65; RESP 16; TEMP 36.7; O2SAT 96
== END 2024-04-21 21:41 | disposition home or self-care (01) ==
PROVIDERS: Emergency Provider Emergency Medicine; PCP Student in an Organized Health Care Education/Training Program
DX: M54.50 Low back pain, unspecified (principal); F17.210 Nicotine dependence, cigarettes, uncomplicated; F12.90 Cannabis use, unspecified, uncomplicated
CPT/HCPCS: 72100; 96361; 96372; 99284; J1100; J1885

== ENCOUNTER 2024-08-15 00:35 | Emergency (ER) | payer OTHER, SELFPAY ==
--- NOTE | ~2024-08-15 | XR_ITS ---
EXAMINATION: XR ELBOW 3 VIEWS LEFT CLINICAL INFORMATION: fall onto left elbow COMPARISON: None. TECHNIQUE: 3 view series left elbow FINDINGS: The radial head appears intact. No joint effusion noted. No gross soft tissue inflammatory changes visualized. Minimal vague dystrophic-like calcifications are noted adjacent to the olecranon and may represent minimal enthesopathic changes at the triceps insertion upon the olecranon. These findings do not have the appearance of acute fracture fragments given the vague amorphus appearance of these calcifications. No gross olecranon soft tissue inflammatory changes visualized. XR/XR elbow LT min 3V IMPRESSION: Left elbow: No acute abnormalities. Electronically signed by: Kit Hanks MD 08/15/2024 02:09 AM EDT
[2024-08-15 00:37] VITALS: BP 106/70; PULSE 99; RESP 20; TEMP 36.2; O2SAT 98; BMI 41.6
--- NOTE | 2024-08-15 01:39 | ED_ITS ---
HPI - Extremity Problem General Chief complaint: Extremity Injury, Upper Stated complaint: L elbow injury Time Seen by Provider: 08/15/24 01:23 Source: patient Mode of arrival: ambulatory Limitations: no limitations History of Present Illness ED Provider: erasmo OMER Narrative: Patient apparently fell yesterday landing on her left elbow complaining of pain in the elbow good range of movement no other injuries Related Data Home Medications ?Medication ?Instructions ?Recorded ?Confirmed cariprazine 6 mg capsule (Vraylar) 1 cap PO QAM 01/27/22 10/03/23 cariprazine 1.5 mg capsule 1 cap PO DAILY 02/11/22 10/03/23 (Vraylar) divalproex 250 mg tablet,extended 500 mg PO TID 01/21/23 10/03/23 release 24 hr (Depakote ER) lorazepam 0.5 mg tablet 0.5 mg PO DAILY PRN Anxiety 01/21/23 10/03/23 atomoxetine 60 mg capsule 60 mg PO DAILY 01/24/23 10/03/23 bupropion HCl 150 mg 24 hr tablet, 150 mg PO DAILY 10/03/23 10/03/23 extended release Previous Rx's ?Medication ?Instructions ?Recorded divalproex 250 mg tablet,extended 1,750 mg (7 x 250 mg) PO DAILY 2 01/28/23 release 24 hr (Depakote ER) weeks #98 tabs doxycycline hyclate 100 mg capsule 100 mg PO BID cough 7 days #14 caps 04/28/23 fluconazole 150 mg tablet 150 mg PO DAILY candiadiasis #1 tab 07/16/23 (Diflucan) nystatin 100,000 unit/gram topical 1 appl topical BID #15 grams 07/16/23 ointment albuterol sulfate 90 mcg/actuation 2 puff inhalation Q6H PRN 08/26/23 aerosol inhaler shortness of breath or wheezing #8.5 grams diphenhydramine HCl 25 mg capsule 50 mg (2 x 25 mg) PO TID PRN 09/16/23 (Benadryl) allergic reaction #30 caps epinephrine 0.3 mg/0.3 mL 0.3 mg (0.3 mL) IM Q10M PRN 09/16/23 injection, auto-injector anaphylaxis #2 ea famotidine 20 mg tablet (Pepcid) 20 mg PO BID #30 tabs 09/16/23 montelukast 10 mg tablet 10 mg PO BEDTIME #30 tabs 09/16/23 (Singulair) prednisone 20 mg tablet 40 mg (2 x 20 mg) PO DAILY #10 tabs 09/16/23 cyclobenzaprine 10 mg tablet 10 mg PO TID PRN muscle spasm #7 04/21/24 tabs ketorolac 10 mg tablet 10 mg PO BID #7 tabs 04/21/24 ibuprofen 600 mg tablet 600 mg PO Q6H PRN fever or pain 08/15/24 #30 tabs Allergies Allergy/AdvReac Type Severity Reaction Status Date / Time lithium [LITHIUM] Allergy Intermediate HIVES Verified 08/15/24 00:39 nicotine [From [facility]] Allergy Unknown HIVES FROM Verified 08/15/24 00:39 THE PATCH onion Allergy Throat Verified 08/15/24 00:39 lico [facility] Past Medical History Medical History Tremor of both hands Mental health disorder Fibromyalgia Anxiety Depression Bipolar 1 disorder Surgical History H/O brain surgery Social History Social History Household Members: None Housing: Apartment Alcohol intake: current Alcohol intake frequency: holidays/special occasions only Alcohol type: wine Patient Tobacco Use Status: Current everyday Tobacco user Tobacco use type: Cigarette Cigarettes Per Day: 10 Years Smoked: 15 Substance Use Type: Marijuana Advance Directives: No Advance Directives Information Provided: Yes Physical Exam 2 Vital Signs: Vital Signs: Last Vital Signs Temp 97.1 F 08/15/24 00:37 Pulse 99 08/15/24 00:37 Resp 20 08/15/24 00:37 BP 106/70 08/15/24 00:37 Pulse Ox 98 08/15/24 00:37 O2 Del Method Room Air 08/15/24 00:37 BMI result Body Mass Index 41.6 Extrem: Shoulder/upper arm images: 1. Tenderness on the olecranon process neurovascular intact good range of movement Medications Administered Discontinued Medications Generic Name Dose Route Start Last Admin Trade Name Freq PRN Reason Stop Dose Admin Ibuprofen 600 mg 08/15/24 01:40 08/15/24 02:03 Ibuprofen 600 Mg Tablet PO 08/15/24 01:41 Not Given ONCE ONE Discharge Plan Discharge Clinical Impression: Contusion of elbow Patient Disposition: Home, Self-Care Instructions: Elbow Sprain (ED) Additional Instructions: Your x-ray of the elbow is negative for fracture Wear the sling for support Tylenol/Motrin for pain Follow with your PCP if not better Prescriptions: New ibuprofen 600 mg tablet 600 mg PO Q6H PRN (Reason: fever or pain) Qty: 30 0RF No Action Vraylar 1.5 mg capsule 1 cap PO DAILY Vraylar 6 mg capsule 1 cap PO QAM divalproex [Depakote ER] 250 mg Tablet Extended Release 24 Hr 500 mg PO TID Rx Instructions: Take 500 mg TID with an additional 250 mg tab in the morning for a total dose of 1750 mg. lorazepam 0.5 mg Tablet 0.5 mg PO DAILY PRN (Reason: Anxiety) atomoxetine 60 mg Capsule 60 mg PO DAILY divalproex [Depakote ER] 250 mg tablet extended release 24 hr 1,750 mg PO DAILY 14 Days Qty: 98 1RF fluconazole [Diflucan] 150 mg tablet 150 mg PO DAILY Qty: 1 0RF Rx Instructions: Please take once in one week nystatin 100,000 unit/gram ointment 1 appl topical BID Qty: 15 0RF albuterol sulfate 90 mcg/actuation HFA aerosol inhaler 2 puff inhalation Q6H PRN (Reason: shortness of breath or wheezing) Qty: 8.5 0RF doxycycline hyclate 100 mg capsule 100 mg PO BID 7 Days Qty: 14 0RF epinephrine 0.3 mg/0.3 mL auto-injector 0.3 mg IM Q10M PRN (Reason: anaphylaxis) Qty: 2 0RF Rx Instructions: for 2 doses diphenhydramine HCl [Benadryl] 25 mg capsule 50 mg PO TID PRN (Reason: allergic reaction) Qty: 30 0RF montelukast [Singulair] 10 mg tablet 10 mg PO BEDTIME Qty: 30 0RF prednisone 20 mg tablet 40 mg PO DAILY Qty: 10 0RF famotidine [Pepcid] 20 mg tablet 20 mg PO BID Qty: 30 0RF bupropion HCl 150 mg tablet extended release 24 hr 150 mg PO DAILY ketorolac 10 mg tablet 10 mg PO BID Qty: 7 0RF Rx Instructions: maximum total duration of 5 days from all oral, intranasal, or parenteral formulations cyclobenzaprine 10 mg tablet 10 mg PO TID PRN (Reason: muscle spasm) Qty: 7 0RF Nexplanon 68 mg implant 1 implant subdermal ONCE Qty: 1 0RF Discharge Date/Time: 08/15/24 03:08 Print Language: Namibian
== END 2024-08-15 03:08 | disposition home or self-care (01) ==
PROVIDERS: Emergency Provider Internal Medicine; PCP Student in an Organized Health Care Education/Training Program
DX: S50.02XA Contusion of left elbow, initial encounter (principal); W19.XXXA Unspecified fall, initial encounter; Y93.9 Activity, unspecified; Y92.9 Unspecified place or not applicable; Y99.9 Unspecified external cause status
CPT/HCPCS: 73080; 99281; 99283

== ENCOUNTER 2025-01-02 20:14 | Emergency (ER) | payer OTHER, SELFPAY ==
[2025-01-02 20:19] VITALS: BP 126/72; PULSE 91; RESP 16; TEMP 37; O2SAT 96; BMI 40.2
--- NOTE | 2025-01-02 20:19 | ED_ITS ---
HPI - General Adult General Chief complaint: General Medical Stated complaint: rectal pain Time Seen by Provider: 01/02/25 21:19 Source: patient Mode of arrival: ambulatory Limitations: no limitations History of Present Illness ED Provider: HPI narrative: Patient complaining of pain in the rectal area for last 24 hours no history of hemorrhoids bleeding no fever no history of hemorrhoids no rectal intercourse Related Data Home Medications ?Medication ?Instructions ?Recorded ?Confirmed cariprazine 6 mg capsule (Vraylar) 1 cap PO QAM 01/27/22 10/03/23 cariprazine 1.5 mg capsule 1 cap PO DAILY 02/11/22 10/03/23 (Vraylar) divalproex 250 mg tablet,extended 500 mg PO TID 01/21/23 10/03/23 release 24 hr (Depakote ER) lorazepam 0.5 mg tablet 0.5 mg PO DAILY PRN Anxiety 01/21/23 10/03/23 atomoxetine 60 mg capsule 60 mg PO DAILY 01/24/23 10/03/23 bupropion HCl 150 mg 24 hr tablet, 150 mg PO DAILY 10/03/23 10/03/23 extended release Previous Rx's ?Medication ?Instructions ?Recorded divalproex 250 mg tablet,extended 1,750 mg (7 x 250 mg) PO DAILY 2 01/28/23 release 24 hr (Depakote ER) weeks #98 tabs doxycycline hyclate 100 mg capsule 100 mg PO BID cough 7 days #14 caps 04/28/23 fluconazole 150 mg tablet 150 mg PO DAILY candiadiasis #1 tab 07/16/23 (Diflucan) nystatin 100,000 unit/gram topical 1 appl topical BID #15 grams 07/16/23 ointment albuterol sulfate 90 mcg/actuation 2 puff inhalation Q6H PRN 08/26/23 aerosol inhaler shortness of breath or wheezing #8.5 grams diphenhydramine HCl 25 mg capsule 50 mg (2 x 25 mg) PO TID PRN 09/16/23 (Benadryl) allergic reaction #30 caps epinephrine 0.3 mg/0.3 mL 0.3 mg (0.3 mL) IM Q10M PRN 09/16/23 injection, auto-injector anaphylaxis #2 ea famotidine 20 mg tablet (Pepcid) 20 mg PO BID #30 tabs 09/16/23 montelukast 10 mg tablet 10 mg PO BEDTIME #30 tabs 09/16/23 (Singulair) prednisone 20 mg tablet 40 mg (2 x 20 mg) PO DAILY #10 tabs 09/16/23 cyclobenzaprine 10 mg tablet 10 mg PO TID PRN muscle spasm #7 04/21/24 tabs ketorolac 10 mg tablet 10 mg PO BID #7 tabs 04/21/24 ibuprofen 600 mg tablet 600 mg PO Q6H PRN fever or pain 08/15/24 #30 tabs doxycycline hyclate 100 mg tablet 100 mg PO BID #20 tabs 01/02/25 Allergies Allergy/AdvReac Type Severity Reaction Status Date / Time lithium [LITHIUM] Allergy Intermediate HIVES Verified 01/02/25 20:22 nicotine [From [facility]] Allergy Unknown HIVES FROM Verified 01/02/25 20:22 THE PATCH onion Allergy Throat Verified 01/02/25 20:22 lico Review of Systems Review of Systems: Yes all other systems are reviewed and are negative [facility] Past Medical History Medical History Tremor of both hands Mental health disorder Fibromyalgia Anxiety Depression Bipolar 1 disorder Surgical History H/O brain surgery Social History Social History Household Members: None Housing: Apartment Alcohol intake: current Alcohol intake frequency: holidays/special occasions only Alcohol type: wine Patient Tobacco Use Status: Current everyday Tobacco user Tobacco use type: Cigarette Cigarettes Per Day: 10 Years Smoked: 15 Substance Use Type: Marijuana Advance Directives: No Advance Directives Information Provided: No Do you have a plan to hurt others: No Plan Physical Exam ED Vital Signs: Vital Signs - 24 hr 01/02/25 20:19 01/02/25 21:58 Temperature 98.6 F 98.6 F Pulse Rate 91 91 Respiratory Rate 16 16 Blood Pressure 126/72 126/72 Pulse Oximetry 96 96 Oxygen Delivery Method Room Air Room Air BMI result Body Mass Index 40.2 Appearance: Alert. Oriented X3. No acute distress. Eyes: No pallor will ENT: Pharynx normal. Oral Mucosa moist Neck: Normal inspection. Neck supple. CVS: Normal heart rate and rhythm. Pulses normal. Respiratory: No respiratory distress. Equal air entry bilateral, no wheezing/rales/rhonchi Abdomen: Soft and nontender. Bowel sounds are present, no mass palpable, no CVA tenderness rectal: Follicular rash around the anus area no hemorrhoids felt no mass felt Skin: Skin warm and dry. Normal skin color. Normal skin turgor. Extremities: No lower extremity edema. No calf tenderness Neuro: Oriented X 3. Course Course Course Narrative: This is a Rapid Medical Exam performed in triage by Orly Carson PA-C. Full HPI, ROS and PE to be performed by primary ED provider. 29yo F presenting to the ED c/o rectal pain with suspected hemorrhoids x today. denies rectal bleeding. Reports pain with BMs/difficulty wiping 2/2 pain. Denies constipation, foreign objects or trauma, abdominal pain PE: area not evaluated in triage Plan: Physical exam to determine plan of care Medications Administered Discontinued Medications Generic Name Dose Route Start Last Admin Trade Name Freq PRN Reason Stop Dose Admin Doxycycline Monohydrate 100 mg 01/02/25 21:33 01/02/25 21:52 Doxycycline Monohydrate 100 Mg Capsule PO 01/02/25 21:34 100 mg ONCE ONE Administration Medical Decision Making Medical Decision Making [facility] Narrative: Patient's follicular rash around the rectal area clinically folliculitis will prescribe doxycycline no hemorrhoids was felt no fissure Discharge Plan Discharge Clinical Impression: Folliculitis Patient Disposition: Home, Self-Care Instructions: Folliculitis (ED) Additional Instructions: Take antibiotic as prescribed You have infection of the skin likely the cause for the pain Report to the ER/PCP if pain gets worse or rash gets worse Prescriptions: New doxycycline hyclate 100 mg tablet 100 mg PO BID Qty: 20 0RF No Action Vraylar 1.5 mg capsule 1 cap PO DAILY Vraylar 6 mg capsule 1 cap PO QAM divalproex [Depakote ER] 250 mg Tablet Extended Release 24 Hr 500 mg PO TID Rx Instructions: Take 500 mg TID with an additional 250 mg tab in the morning for a total dose of 1750 mg. lorazepam 0.5 mg Tablet 0.5 mg PO DAILY PRN (Reason: Anxiety) atomoxetine 60 mg Capsule 60 mg PO DAILY divalproex [Depakote ER] 250 mg tablet extended release 24 hr 1,750 mg PO DAILY 14 Days Qty: 98 1RF fluconazole [Diflucan] 150 mg tablet 150 mg PO DAILY Qty: 1 0RF Rx Instructions: Please take once in one week nystatin 100,000 unit/gram ointment 1 appl topical BID Qty: 15 0RF albuterol sulfate 90 mcg/actuation HFA aerosol inhaler 2 puff inhalation Q6H PRN (Reason: shortness of breath or wheezing) Qty: 8.5 0RF ibuprofen 600 mg tablet 600 mg PO Q6H PRN (Reason: fever or pain) Qty: 30 0RF doxycycline hyclate 100 mg capsule 100 mg PO BID 7 Days Qty: 14 0RF epinephrine 0.3 mg/0.3 mL auto-injector 0.3 mg IM Q10M PRN (Reason: anaphylaxis) Qty: 2 0RF Rx Instructions: for 2 doses diphenhydramine HCl [Benadryl] 25 mg capsule 50 mg PO TID PRN (Reason: allergic reaction) Qty: 30 0RF montelukast [Singulair] 10 mg tablet 10 mg PO BEDTIME Qty: 30 0RF prednisone 20 mg tablet 40 mg PO DAILY Qty: 10 0RF famotidine [Pepcid] 20 mg tablet 20 mg PO BID Qty: 30 0RF bupropion HCl 150 mg tablet extended release 24 hr 150 mg PO DAILY ketorolac 10 mg tablet 10 mg PO BID Qty: 7 0RF Rx Instructions: maximum total duration of 5 days from all oral, intranasal, or parenteral formulations cyclobenzaprine 10 mg tablet 10 mg PO TID PRN (Reason: muscle spasm) Qty: 7 0RF Nexplanon 68 mg implant 1 implant subdermal ONCE Qty: 1 0RF Stand Alone Forms: Work/School Release Interventions: ED Discharge Assessment Last Done: 01/02/25 21:58 Discharge Date/Time: 01/02/25 21:59 Print Language: Surinamese
--- OUTSIDE RECORDS SUMMARY | 2025-01-02 20:59 | XMS_ITS | Encounter Summary ---
Author Organization [facility] Address [address] [place] [address] Phone Care Team Providers Care Finance Clerk Name Role Phone Unavailable Primary Care Provider Unavailabl e Encounter Details Date Type Department Care Team (Late st Contact Info) Description 06/20/2017 Conversion Encounter [facility] - [address] [address] Social History Tobacco Use Types Packs/Day Years Used Date Smoking Tobacco: Never Assessed Comments Unknown Sex and Gender Information Value Date Recorded Sex Assigned at Not on file Legal Sex Female 4:45 PM EDT Gender Identity Not on file Sexual Orientation Not on file documented as of this encounter Plan of Treatment Not on file documented as of this encounter Visit Diagnoses Not on filedocumented in this encounter
--- OUTSIDE RECORDS SUMMARY | 2025-01-02 20:59 | XMS_ITS | Encounter Summary ---
Author Organization [facility] Address [address] [place] [address] Phone Care Team Providers Care Material Manager Name Role Phone Unavailable Primary Care Provider Unavailabl e Encounter Details Date Type Department Care Team (Late st Contact Info) Description 11/29/2010 Documentation [facility] [place] Family Medicine [address] [place] [address] Family Medicine, Physician [address], [place] [phone] Social History Tobacco Use Types Packs/Day Years [...]
--- OUTSIDE RECORDS SUMMARY | 2025-01-02 20:59 | XMS_ITS | Encounter Summary ---
Author Organization [facility] Address [address] [place] [address] Phone Care Team Providers Care Clinic Assistant Name Role Phone Unavailable Primary Care Provider Unavailabl e Encounter Details Date Type Department Care Team (Late st Contact Info) Description 10/02/2011 Documentation [facility] [place] Family Medicine [address] [place] [address] Family Medicine, Physician [address], [place] [phone] Social History Tobacco Use Types Packs/Day Years [...]
--- OUTSIDE RECORDS SUMMARY | 2025-01-02 20:59 | XMS_ITS | Encounter Summary ---
Author Organization [facility] Address [address] [place] [address] Phone Care Team Providers Care Signals Intelligence Analyst Name Role Phone Unavailable Primary Care Provider Unavailabl e Encounter Details Date Type Department Care Team (Late st Contact Info) Description 04/13/2010 Documentation [facility] [place] Family Medicine [address] [place] [address] Family Medicine, Physician [address] [place] [address] Social History Tobacco Use Types Packs/Day Years [...]
--- OUTSIDE RECORDS SUMMARY | 2025-01-02 20:59 | XMS_ITS | Encounter Summary ---
Author Organization [facility] Address [address] [place] [address] Phone Care Team Providers Care Inspector Ball Points Name Role Phone Unavailable Primary Care Provider Unavailabl e Encounter Details Date Type Department Care Team (Late st Contact Info) Description 10/02/2011 Documentation [facility] [place] Family Medicine [address] [place] [address] Family Medicine, Physician [address] [place], [place] [phone] Social History Tobacco Use Types Packs/Day Years [...]
--- OUTSIDE RECORDS SUMMARY | 2025-01-02 20:59 | XMS_ITS | Clinical Summary ---
Author Organization [facility] Address [address] [place] [id number] Phone Care Team Providers Care Marketing Segment Manager Name Role Phone Unavailable Primary Care Provider Unavailabl e Immunizations Immunization Administration Dates Next Due DTaP 5 04/13/1999, 6,1995, 995,1995 HPV, Quadrivalent 06/12/2010,04/13/2009 Hep B, ped/adol 1995,1995,1995 Hib (PRP-T) 06/29/1996, 5,1995, 995 IPV 04/05/1999, 5,1995, 995 MMR 04/05/1999,03/25/1996 Meningococcal Conj (Menactra) MCV4P 01/15/2007 Tdap 01/15/2007 Varicella 04/13/2009,06/29/1996 Family History Relation Name Status Comments Brother Alive Brother: Alive and well Father Alive Father: Alive a nd well Mother Alive Mother: anxiety ,allergy,cholesterol Other Family history of Diabetes mellitus, Family history of Obesity, Family history of elevated Cholesterol Social History Tobacco Use Types Packs/Day Years Used Date Smoking Tobacco: Never Assessed Comments Unknown Sex and Gender Information Value Date Recorded Sex Assigned at Not on file Legal Sex Female 4:45 PM EDT Gender Identity Not on file Sexual Orientation Not on file Last Filed Vital Signs Vital Sign Reading Time Taken Comments Blood Pressure 110/70 10/19/2011 12:00 AM EST Pulse 88 07/27/2011 12:00 AM EDT Temperature 36.5 ??C (97.7 ??F) 10/19/2011 12:[address] Respiratory Rate - - Oxygen Saturation - - Inhaled Oxygen Concentration - - Weight 54.9 kg (121 lb) 10/19/2011 12:00 AM EST Height 154.9 cm (5' 1 ) 01/30/2011 12:00 AM EDT Body Mass Index - - Plan of Treatment Health Maintenance Due Date Last Done Comments Consider Men B Vaccine (1 of 2 - Bexsero 2-dose series) 2011 DTaP,Tdap,and Td Vaccines (7 - Td or Tdap) 01/15/2017 01/15/2007, 04/13/1999, 09/13/1996, Additional history exists Influenza Vaccines (#1) 2024 COVID-19 Vaccine (2023- season) 2024 Hepatitis B Vaccines Completed 1995, 1995, 1995 HIB Vaccines Completed 06/29/1996, 09/05, 1995, Additional history exists IPV Vaccines Completed 04/05/1999, 09/05, 1995, Additional history exists MMR Vaccines Completed 04/05/1999, 03/25/1996 Meningococcal Vaccine Aged Out 01/15/2007 No leo stiven eligible based on patient's age to complete this topic Varicella Vaccines Completed 04/13/2009, 06/29/1996 HPV Vaccines Completed 06/12/2010, 04/13/2009 Hepatitis A Vaccines Aged Out No long er eligible based on patient's age to complete this topic Men B Vaccine Aged Out No longer elig ible based on patient's age to complete this topic Pneumococcal Vaccine Aged Out No long er eligible based on patient's age to complete this topic Procedures * Due to [place] [employer] law, this organization might not be sharing sensitive test results. Procedure Name Priority Date/Time Associated Diagnosis Comments CHLAMYDIA AND GONORRHEA, AMPLIFIED Routine 07/26/2011 1:14 PM EDT from Last 3 Months or Most Recently Relevant to Health Maintenance Results * Due to [place] [employer] law, this organization might not be sharing sensitive test results. * Chlamydia and Gonorrhoea, Amplified (07/26/2011 1:14 PM EDT) URINE CHLAMYDIA AMP PROBE NEGATIVE [facility] Comment: NO CHLAMYDIA TRACHOMATIS RNA DETECTED IN THIS PATIENT'S SAMPLE. ? (REFERENCE RANGE/NORMAL VALUE: NOT DETECTED) URINE GC AMP PROBE NEGATIVE [facility] Comment: NO NEISSERIA GONORRHOEAE RNA DETECTED IN THIS PATIENT'S SAMPLE. ? (REFERENCE RANGE/NORMAL VALUE: NOT DETECTED) ? NOTE: THIS TEST USES POST PRODUCTION ASSISTANT MEDIATED AMPLIFICATION METHOD TO DETECT rRNA FROM C.TRACHOMATIS AND N.GONORRHOEAE. A NEGATIVE RESULT DOES NOT PRECLUDE INFECTION WITH C.TRACHOMATIS OR N.GONORRHOEAE BECAUSE RESULTS ARE DEPENDENT ON ADEQUATE SPECIMEN COLLECTION, ABSENCE OF INHIBITORS, AND SUFFICIENT rRNA TO BE DETECTED. THE APTIMA COMBO2 ASSAY IS NOT INTENDED FOR THE EVALUATION OF SUSPECTED SEXUAL ABUSE OR FOR OTHER MEDICO LEGAL INDICATIONS. IS TRUE FOR ALL NON CULTURE METHODS, A POSITIVE SPECIMEN OBTAINED FROM A PATIENT AFTER THERAPEUTIC TREATMENT CANNOT BE INTERPRETED INDICATING THE PRESENCE OF VIABLE C.TRACHOMATIS OR N.GONORRHOEAE. THERAPEUTIC FAILURE OR SUCCESS CANNOT BE DETERMINED WITH THE APTIMA COMBO2 ASSAY SINCE NUCLEIC ACID MAY PERSIST FOLLOWING APPROPRIATE ANTIMICROBIAL THERAPY. A NEGATIVE URINE RESULT FOR A PATIENT WHO IS CLINICALLY SUSPECTED OF HAVING A CHLAMYDIAL OR GONOCOCCAL INFECTION DOES NOT RULE OUT THE PRESENCE OF C.TRACHOMATIS OR N.GONORRHOEAE IN THE UROGENITAL TRACT. TESTING OF AN ENDOCERVICAL(FEMALE) OR URETHRAL(MALE) SPECIMEN IS RECOMMENDED IF THERE IS HIGH CLINICAL SUSPICION OF INFECTION. PRESERVCYT LIQUID PAP AND URINE SAMPLING ARE NOT DESIGNED TO REPLACE CERVICAL EXAMS AND ENDOCERVICAL SAMPLES FOR DIAGNOSIS OF FEMALE UROGENITAL INFECTIONS. PATIENTS MAY HAVE CERVICITIS, URETHRITIS, URINARY TRACT INFECTIONS, OR VAGINAL INFECTIONS DUE TO OTHER CAUSES OR CONCURRENT INFECTIONS WITH OTHER AGENTS. 07/26/2011 1:14 PM EDT Narrative [facility] - 07/26/2011 1:14 PM EDT URINE CHLAMYDIA GC AMP PROBE us Gia Sotomayor NP LAB MICROBIOLOGY - GENERAL ORDER LORI Final Result [facility] [address] [place] [address], from Last 3 Months or Most Recently Relevant to Health Maintenance
--- OUTSIDE RECORDS SUMMARY | 2025-01-02 20:59 | XMS_ITS | Encounter Summary ---
Author Organization [facility] Address [address] [place] [address] Phone Care Team Providers Care Insurance Producer Name Role Phone Unavailable Primary Care Provider Unavailabl e Encounter Details Date Type Department Care Team (Late st Contact Info) Description 10/02/2011 Documentation [facility] [place] [address] [place] [address] Family Medicine, Physician [address], [place] [phone] Social History Tobacco Use Types Packs/Day Years [...]
--- OUTSIDE RECORDS SUMMARY | 2025-01-02 20:59 | XMS_ITS | Encounter Summary ---
Author Organization [facility] Address [address] [place] [address] Phone Care Team Providers Care Crop Puller Name Role Phone Unavailable Primary Care Provider Unavailabl e Encounter Details Date Type Department Care Team (Late st Contact Info) Description 04/13/2010 [place]ation [facility] [place] [address] [place] [address] Family Medicine, Physician [address] [place] [address] Social History Tobacco Use Types Packs/Day Years [...]
[2025-01-02] MEDS: Doxycycline Monohydrate 100 MG CAPSULE PO (21:52)
[2025-01-02 21:58] VITALS: BP 126/72; PULSE 91; RESP 16; TEMP 37; O2SAT 96
== END 2025-01-02 21:59 | disposition home or self-care (01) ==
PROVIDERS: Emergency Provider Internal Medicine; PCP Student in an Organized Health Care Education/Training Program
DX: L73.9 Follicular disorder, unspecified (principal); K62.89 Other specified diseases of anus and rectum
CPT/HCPCS: 99282; 99283

== ENCOUNTER 2025-03-05 11:17 | Emergency (ER) | payer OTHER, SELFPAY ==
[2025-03-05 11:40] VITALS: BP 118/80; PULSE 98; RESP 18; TEMP 36.6; O2SAT 100; BMI 39.9
--- NOTE | 2025-03-05 11:41 | ED_ITS ---
HPI - General Adult General Chief complaint: General Medical Stated complaint: Needs levels checked? Time Seen by Provider: 03/05/25 11:49 Source: patient Mode of arrival: ambulatory Limitations: no limitations History of Present Illness ED Provider: deepak kelley np HPI narrative: Patient is a 29-year-old female who presents emergency department requesting testing for depakote levels states my depakote level is off I believe . Experiencing increased depression x2 weeks, reports 1 month ago depakote was switched from pills to liquid. Goes through [facility] in [place], previously saw Dr. Cuevas who evidently has since left the practice, is not aware of who her new prescriber is, she is awaiting an emergency appointment. Denies SI/HI. Related Data Home Medications ?Medication ?Instructions ?Recorded ?Confirmed cariprazine 6 mg capsule (Vraylar) 1 cap PO QAM 01/27/22 10/03/23 cariprazine 1.5 mg capsule 1 cap PO DAILY 02/11/22 10/03/23 (Vraylar) divalproex 250 mg tablet,extended 500 mg PO TID 01/21/23 10/03/23 release 24 hr (Depakote ER) lorazepam 0.5 mg tablet 0.5 mg PO DAILY PRN Anxiety 01/21/23 10/03/23 atomoxetine 60 mg capsule 60 mg PO DAILY 01/24/23 10/03/23 bupropion HCl 150 mg 24 hr tablet, 150 mg PO DAILY 10/03/23 10/03/23 extended release Previous Rx's ?Medication ?Instructions ?Recorded divalproex 250 mg tablet,extended 1,750 mg (7 x 250 mg) PO DAILY 2 01/28/23 release 24 hr (Depakote ER) weeks #98 tabs doxycycline hyclate 100 mg capsule 100 mg PO BID cough 7 days #14 caps 04/28/23 fluconazole 150 mg tablet 150 mg PO DAILY candiadiasis #1 tab 07/16/23 (Diflucan) nystatin 100,000 unit/gram topical 1 appl topical BID #15 grams 07/16/23 ointment albuterol sulfate 90 mcg/actuation 2 puff inhalation Q6H PRN 08/26/23 aerosol inhaler shortness of breath or wheezing #8.5 grams diphenhydramine HCl 25 mg capsule 50 mg (2 x 25 mg) PO TID PRN 09/16/23 (Benadryl) allergic reaction #30 caps epinephrine 0.3 mg/0.3 mL 0.3 mg (0.3 mL) IM Q10M PRN 09/16/23 injection, auto-injector anaphylaxis #2 ea famotidine 20 mg tablet (Pepcid) 20 mg PO BID #30 tabs 09/16/23 montelukast 10 mg tablet 10 mg PO BEDTIME #30 tabs 09/16/23 (Singulair) prednisone 20 mg tablet 40 mg (2 x 20 mg) PO DAILY #10 tabs 09/16/23 cyclobenzaprine 10 mg tablet 10 mg PO TID PRN muscle spasm #7 04/21/24 tabs ketorolac 10 mg tablet 10 mg PO BID #7 tabs 04/21/24 ibuprofen 600 mg tablet 600 mg PO Q6H PRN fever or pain 08/15/24 #30 tabs doxycycline hyclate 100 mg tablet 100 mg PO BID #20 tabs 01/02/25 Allergies Allergy/AdvReac Type Severity Reaction Status Date / Time lithium [LITHIUM] Allergy Intermediate HIVES Verified 03/05/25 11:43 nicotine [From NICODERM CQ] Allergy Unknown HIVES FROM Verified 03/05/25 11:43 THE PATCH onion Allergy Throat Verified 03/05/25 11:43 lico Review of Systems 2 Review of Systems: Yes all other systems are reviewed and are negative [facility] Past Medical History Attestation statement: The following information was validated with the patient. Source: old records reviewed Medical History Tremor of both hands Mental health disorder Fibromyalgia Anxiety Depression Bipolar 1 disorder Surgical History H/O brain surgery Social History Social History Household Members: None Housing: Apartment Alcohol intake: current Alcohol intake frequency: holidays/special occasions only Alcohol type: wine Patient Tobacco Use Status: Current everyday Tobacco user Tobacco use type: Cigarette Cigarettes Per Day: 10 Years Smoked: 15 Substance Use Type: Marijuana Advance Directives: Yes Advance Directives Information Provided: Yes Advance Directives on File: No Do you have a plan to hurt others: No Plan Physical Exam ED Vital Signs: Vital Signs - 24 hr 03/05/25 11:40 Temperature 98 F Pulse Rate 98 Respiratory Rate 18 Blood Pressure 118/80 Pulse Oximetry 100 Oxygen Delivery Method Room Air BMI result Body Mass Index 39.9 Appearance: Alert.?Oriented to person, place and time. No acute distress.?Normal affect. CVS: Heart sounds normal. Normal heart rate and rhythm.? Pulses normal.?? Respiratory: No respiratory distress.? Lung sounds clear to auscultation bilaterally?? Skin: Skin warm and dry.? Normal skin color.? Extremities: No lower extremity edema.? Neuro: Moves all extremities spontaneously. Sensation intact bilaterally. CN II- XII intact. Ambulates with normal steady gait. Medical Decision Making Medical Decision Making MDM Narrative: Patient is a 29-year-old female with past medical history of Anxiety, depression, bipolar disorder, fibromyalgia presenting to emergency department for evaluation, experiencing increasing depression over the past 2 weeks, admitting to Depakote 1 month ago having been switched to a liquid formulation. She felt better taking the pills as per HPI. She denies any suicidal or homicidal ideations, no hallucinations. Denies recreational drug or alcohol usage. She states that she has no interest in inpatient psychiatric care at this time. She is awaiting an emergent appointment from her office at this time. She states that she requested to switch from the pills to the liquid solution because ?I did not want to take the pill style any more . Valproic acid level has resulted as high; 113.6 mcg per mL, by her account she has had high levels even when she was a young child. Most recent levels here from 2022 range from 50s-80s. She does not have findings consistent with valproic acid poisoning, no depression, hypotension, tachycardia, non febrile. She is not lethargic proven drowsy. Has no leukocytosis, anemia, thrombocytopenia. No electrolyte derangement. No ROSENDO. LFTs unremarkable. HCG is negative. Given normal LFTs, no lethargy/encephalopathy, clinically seems to have less consistent findings with hyperammonemia but I did discuss with the patient that this can occur with elevated valproic acid levels, advised to have serum ammonia level obtain she however declines. Reports that she took her last dose of Depakote this morning, does not recall exactly what time but would be <12 hours prior to serum draw. I did advise her that I would not consider making any dosage changes, especially given the who have will admit she should speak with her prescriber in regards to this. She is requesting to be discharged at this time which I feel is reasonable. Differential Diagnosis Differential Diagnoses: The differential diagnosis associated with the presentation includes (Depression, anxiety, no suicidal or homicidal ideations.) Admission/Observation Consideration of admission/observation: Escalation of care including admission/observation considered Lab Data MDM Lab Attestation statement: I reviewed the patient's lab results. (See above) 03/05/25 12:03 03/05/25 12:03 Labs: Lab Results 03/05/25 Range/Units 12:03 WBC 6.9 (4.8-10.8) X10*3/uL RBC 4.87 (4.20-5.50) X10*6/uL Hgb 12.6 (12.0-16.0) g/dl Hct 37.9 (37.0-47.0) % MCV 77.8 L (80.0-98.0) fL MCH 25.9 L (27.0-33.0) pg MCHC 33.2 (31.0-35.0) g/dl RDW 13.2 (11.0-16.0) % Plt Count 241 (160-400) X10*3/uL MPV 10.0 (9.4-12.3) fL Immature Gran % (Auto) 0.1 (0.0-0.4) % Neut % (Auto) 39.7 L (45-73) % Lymph % (Auto) 53.2 H (20-40) % [place] % (Auto) 6.3 (2-11) % Eos % (Auto) 0.4 (0-4) % Baso % (Auto) 0.3 (0-2) % Lymph # (Auto) 3.7 (1.2-4.9) X10*3/uL [place] # (Auto) 0.4 (0.1-1.2) X10*3/uL Eos # (Auto) 0.0 (0.0-0.4) X10*3/uL Baso # (Auto) 0.0 (0.0-0.2) X10*3/uL Abs Immat Gran (auto) 0.01 (0.00-0.03) X10*3/uL Absolute Neuts (auto) 2.8 (2.0-8.3) x10*3/uL Absolute Nucleated RBC 0.000 (0.0-0.012) X10*3/uL Nucleated RBC % (auto) 0.0 (0.0-0.2) /100WBC Sodium 140 (135-145) mmol/L Potassium 4.1 (3.3-5.1) mmol/L Chloride 107 (96-108) mmol/L Carbon Dioxide 24 (22-29) mmol/L Anion Gap 13 (12-20) BUN 11 (9-16) mg/dL Creatinine 0.61 (0.5-1.4) mg/dL Estim Creat Clear Calc 143.8 Estimated GFR > 60 Random Glucose 118 H (60-115) mg/dL Calcium 9.0 (8.4-10.2) mg/dL Total Bilirubin 0.2 (0.0-1.0) mg/dL Direct Bilirubin < 0.2 (0.0-0.5) mg/dL AST 22 (5-31) U/L ALT 23 (0-31) U/L Alkaline Phosphatase 93 (39-117) U/L Total Protein 6.9 (6.5-8.0) g/dL Albumin 3.9 (3.5-5.0) g/dL Beta HCG, Quant < 2 mIU/mL Valproic Acid 113.6 H* (50.0-100.0) mcg/mL External Record Review External record reviewed: Outpatient record Chronic Conditions Patient?s care impacted by: Other (See narrative above) Discharge Plan Discharge Clinical Impression: Depression Patient Disposition: Home, Self-Care Instructions: Depression (ED) Prescriptions: No Action Vraylar 1.5 mg capsule 1 cap PO DAILY Vraylar 6 mg capsule 1 cap PO QAM divalproex [Depakote ER] 250 mg Tablet Extended Release 24 Hr 500 mg PO TID Rx Instructions: Take 500 mg TID with an additional 250 mg tab in the morning for a total dose of 1750 mg. lorazepam 0.5 mg Tablet 0.5 mg PO DAILY PRN (Reason: Anxiety) atomoxetine 60 mg Capsule 60 mg PO DAILY divalproex [Depakote ER] 250 mg tablet extended release 24 hr 1,750 mg PO DAILY 14 Days Qty: 98 1RF fluconazole [Diflucan] 150 mg tablet 150 mg PO DAILY Qty: 1 0RF Rx Instructions: Please take once in one week nystatin 100,000 unit/gram ointment 1 appl topical BID Qty: 15 0RF albuterol sulfate 90 mcg/actuation HFA aerosol inhaler 2 puff inhalation Q6H PRN (Reason: shortness of breath or wheezing) Qty: 8.5 0RF ibuprofen 600 mg tablet 600 mg PO Q6H PRN (Reason: fever or pain) Qty: 30 0RF doxycycline hyclate 100 mg tablet 100 mg PO BID Qty: 20 0RF doxycycline hyclate 100 mg capsule 100 mg PO BID 7 Days Qty: 14 0RF epinephrine 0.3 mg/0.3 mL auto-injector 0.3 mg IM Q10M PRN (Reason: anaphylaxis) Qty: 2 0RF Rx Instructions: for 2 doses diphenhydramine HCl [Benadryl] 25 mg capsule 50 mg PO TID PRN (Reason: allergic reaction) Qty: 30 0RF montelukast [Singulair] 10 mg tablet 10 mg PO BEDTIME Qty: 30 0RF prednisone 20 mg tablet 40 mg PO DAILY Qty: 10 0RF famotidine [Pepcid] 20 mg tablet 20 mg PO BID Qty: 30 0RF bupropion HCl 150 mg tablet extended release 24 hr 150 mg PO DAILY ketorolac 10 mg tablet 10 mg PO BID Qty: 7 0RF Rx Instructions: maximum total duration of 5 days from all oral, intranasal, or parenteral formulations cyclobenzaprine 10 mg tablet 10 mg PO TID PRN (Reason: muscle spasm) Qty: 7 0RF Nexplanon 68 mg implant 1 implant subdermal ONCE Qty: 1 0RF Print Language: Kiswahili
--- NOTE | 2025-03-05 11:57 | PC.NURSE ---
Patient presents stating she feels off and would like her depakote level checked. History of bipolar. Lungs clear bilat. Respirations even and no-labored. Abdomen soft, non-tender with positive bowel sounds. Positive pedal pulses with no edema.
[2025-03-05 12:10] LABS: MANUAL DIFF FLAG NO
[2025-03-05 12:14] LABS: Basophils Percent Auto 0.3 % (0-2); Eosinophils Percent Auto 0.4 % (0-4); Hematocrit 37.9 % (37.0-47.0); Hemoglobin 12.6 g/dl (12.0-16.0); Imm Gran Abs Auto 0.01 X10*3/uL (0.00-0.03); Imm Gran Pct Auto 0.1 % (0.0-0.4); Lymphocytes Absolute Auto 3.7 X10*3/uL (1.2-4.9); Lymphocytes Percent Auto 53.2 % (20-40); Mean Corpuscular HGB Conc 33.2 g/dl (31.0-35.0); Mean Corpuscular Hemoglobin 25.9 pg (27.0-33.0); Mean Corpuscular Volume 77.8 fL (80.0-98.0); Monocytes Absolute Auto 0.4 X10*3/uL (0.1-1.2); Monocytes Percent Auto 6.3 % (2-11); Neutrophils Absolute Auto 2.8 x10*3/uL (2.0-8.3); Neutrophils Percent Auto 39.7 % (45-73); Platelet Count 241 X10*3/uL (160-400); Red Blood Count 4.87 X10*6/uL (4.20-5.50); Red Cell Distribution Width 13.2 % (11.0-16.0); White Blood Count 6.9 X10*3/uL (4.8-10.8)
[2025-03-05 12:28] LABS: Valproate 113.6 mcg/mL (50.0-100.0)
[2025-03-05 12:36] LABS: Alanine Aminotransferase 23 U/L (0-31); Albumin Level 3.9 g/dL (3.5-5.0); Alkaline Phosphatase 93 U/L (39-117); Anion Gap 13 (12-20); Aspartate Amino Transferase 22 U/L (5-31); Bilirubin Direct < 0.2 mg/dL (0.0-0.5); Bilirubin Total 0.2 mg/dL (0.0-1.0); Blood Urea Nitrogen 11 mg/dL (9-16); Carbon Dioxide 24 mmol/L (22-29); Chloride 107 mmol/L (96-108); Creatinine Clr Calc Pharmacy 143.8; Estimated Glomerular Filt Rate > 60; Glucose Random 118 mg/dL (60-115); Potassium 4.1 mmol/L (3.3-5.1); Sodium 140 mmol/L (135-145); Total Protein 6.9 g/dL (6.5-8.0)
[2025-03-05 12:37] LABS: HCG Quantitative < 2 mIU/mL
--- OUTSIDE RECORDS SUMMARY | 2025-03-05 12:49 | XMS_ITS | Encounter Summary ---
Author Organization [facility] Address [address] [place] [address] Phone Care Team Providers Care Testing Projects Administrator Name Role Phone Unavailable Primary Care Provider Unavailabl e Encounter Details Date Type Department Care Team (Late st Contact Info) Description 10/23/2011 Documentation [facility] [place] Family Medicine [address] [place], [place] [id number] Family Medicine, Physician [address] [place], [place] [id number] Social History Tobacco Use Types Packs/Day Years [...]
--- OUTSIDE RECORDS SUMMARY | 2025-03-05 12:49 | XMS_ITS | Clinical Summary ---
Author Organization [facility] Address [address] [place] [id number] Phone Care Team Providers Care Worm Raiser Name Role Phone Unavailable Primary Care Provider [...] Health Maintenance Due Date Last Done Comments DTaP,Tdap,and Td Vaccines (7 - Td or Tdap) 01/15/2017 01/15/2007, 04/13/1999, 09/13/1996, Additional history exists Influenza Vaccines (#1) 2024 COVID-19 Vaccine ( season) 2024 Hepatitis B Vaccines Completed 1995, [...] complete this topic Procedures * Due to [place] App[employer] law, this organization might not be sharing sensitive test results. Procedure Name Priority Date/Time Associated Diagnosis Comments CHLAMYDIA AND GONORRHEA, AMPLIFIED Routine 07/26/2011 1:14 PM EDT from Last 3 Months or Most Recently Relevant to Health Maintenance Results * Due to [place] [employer] law, this organization might not be sharing sensitive test results. * Chlamydia and Gonorrhoea, Amplified (07/26/2011 1:14 PM EDT) URINE CHLAMYDIA AMP PROBE NEGATIVE [facility] Comment: NO CHLAMYDIA TRACHOMATIS RNA DETECTED IN THIS PATIENT'S SAMPLE. ? (REFERENCE RANGE/NORMAL VALUE: NOT DETECTED) URINE GC AMP PROBE NEGATIVE [facility] Comment: NO NEISSERIA GONORRHOEAE RNA DETECTED IN THIS PATIENT'S SAMPLE. ? (REFERENCE RANGE/NORMAL VALUE: NOT DETECTED) ? NOTE: THIS TEST USES PIN SORTER AND BAGGER MEDIATED AMPLIFICATION METHOD TO DETECT rRNA FROM [...] OTHER AGENTS. 07/26/2011 1:14 PM EDT Narrative [facility] - 07/26/2011 1:14 PM EDT URINE CHLAMYDIA GC AMP PROBE us Gia Sotomayor NP LAB MICROBIOLOGY - GENERAL ORDER LORI Final Result [facility] [address] [place] [address], [place] from Last 3 Months or Most Recently Relevant to Health Maintenance
--- OUTSIDE RECORDS SUMMARY | 2025-03-05 12:49 | XMS_ITS | Encounter Summary ---
Author Organization [facility] Address [address] [place] [address] Phone Care Team Providers Care Device Engineer Name Role Phone Unavailable Primary Care Provider Unavailabl e Encounter Details Date Type Department Care Team (Late st Contact Info) Description 04/13/2010 Documentation [facility] [place] Family Medicine [address] [place] [address] Family Medicine, Physician [address] [place], [place] [id number] Social History Tobacco Use Types Packs/Day Years [...]
--- OUTSIDE RECORDS SUMMARY | 2025-03-05 12:49 | XMS_ITS | Encounter Summary ---
Author Organization [facility] Address [address] [place] [address] Phone Care Team Providers Care Cupola Repairer Name Role Phone Unavailable Primary Care Provider Unavailabl e Encounter Details Date Type Department Care Team (Late st Contact Info) Description 11/29/2010 Documentation [facility] [place] [address] [place] [address] Family Medicine, Physician [address], [place] [phone] Social History Tobacco Use Types Packs/Day Years [...]
--- OUTSIDE RECORDS SUMMARY | 2025-03-05 12:49 | XMS_ITS | Encounter Summary ---
Author Organization [facility] Address [address] [place] [address] Phone Care Team Providers Care Plate Cleaner Name Role Phone Unavailable Primary Care Provider Unavailabl e Encounter Details Date Type Department Care Team (Late st Contact Info) Description 10/02/2011 Documentation [facility] [place] Family Medicine [address] [place] [address] Family Medicine, Physician [address] [place] [place], [place] [address] Social History Tobacco Use Types Packs/Day Years [...]
--- OUTSIDE RECORDS SUMMARY | 2025-03-05 12:49 | XMS_ITS | Encounter Summary ---
Author Organization [facility] Address [address] [place] [address] Phone Care Team Providers Care Diversified Crops Supervisor Name Role Phone Unavailable Primary Care Provider Unavailabl e Encounter Details Date Type Department Care Team (Late st Contact Info) Description 10/02/2011 Documentation [facility] [place] Family Medicine [address] [place] [address] Family Medicine, Physician [address], [place] [phone] Social History Tobacco Use Types Packs/Day Years [...]
--- OUTSIDE RECORDS SUMMARY | 2025-03-05 12:49 | XMS_ITS | Encounter Summary ---
Author Organization [facility] Address [address] [place] [address] Phone Care Team Providers Care Airset Caster Name Role Phone Unavailable Primary Care Provider Unavailabl e Encounter Details Date Type Department Care Team (Late st Contact Info) Description 10/02/2011 Documentation [facility] [place] Family Medicine [address] [place] [address] Family Medicine, Physician [address] [place], [place] [phone] Social History Tobacco Use Types Packs/Day Years [...]
--- OUTSIDE RECORDS SUMMARY | 2025-03-05 12:49 | XMS_ITS | Encounter Summary ---
Author Organization [facility] Address [address] [place] [address] Phone Care Team Providers Care Pasting Inspector Name Role Phone Unavailable Primary Care Provider Unavailabl e Encounter Details Date Type Department Care Team (Late st Contact Info) Description 06/20/2017 Conversion Encounter [facility] - [address] [address] Social History Tobacco Use Types Packs/Day Years [...]
--- OUTSIDE RECORDS SUMMARY | 2025-03-05 12:49 | XMS_ITS | Encounter Summary ---
Author Organization [facility] Address [address] [place] [address] Phone Care Team Providers Care Special Duty Nurse Name Role Phone Unavailable Primary Care Provider Unavailabl e Encounter Details Date Type Department Care Team (Late st Contact Info) Description 04/13/2010 Documentation [facility] [place] Family Medicine [address] [place] [address] Family Medicine, Physician [address] [place], [place] [phone] Social History Tobacco Use Types Packs/Day Years [...]
[2025-03-05 13:38] VITALS: BP 118/80; PULSE 98; RESP 18; TEMP 36.6; O2SAT 100
== END 2025-03-05 13:39 | disposition home or self-care (01) ==
PROVIDERS: Emergency Provider Emergency Medicine; PCP Student in an Organized Health Care Education/Training Program
DX: F32.A Depression, unspecified (principal)
CPT/HCPCS: 36415; 80048; 80076; 80164; 84702; 85025; 99283; 99284

== ENCOUNTER 2025-04-08 08:15 | Outpatient (RCR) | payer OTHER, SELFPAY ==
[2025-04-02 14:01] VITALS: BP 108/66; PULSE 82; RESP 16; TEMP 37.2
[2025-04-02 14:02] VITALS: BMI 42.2
--- NOTE | 2025-04-02 14:15 | PC.ADMIT ---
Pt is a 30 year old single female who was referred to PHP by [facility] outreach program in [place]. The patient reports she has been struggling for the past month with worsening symptoms of depression and anxiety. She reports she was recently at [facility] respite in [place] for one day,but left because she believed she would benefit from PHP more than respite. She reports precipitating factors as her boyfriend and best friend are both incarcerated and stressors at her current place of employment where she is currently on medical leave. Pt reports worsening depression and anxiety,,fatigue,no energy,helplessness,hopelessness, ,low self worth,poor concentration. The Pt denies suicidal ideation without a plan or intent. Pt endorses a hx of self harming behavior as a teenager,she denies engaging in this behavior currently. Pt reports marijuana use daily to aid with her anxiety,she denies using any other substance. [ End ]
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
--- NOTE | 2025-04-08 15:08 | HO.PHP ---
This case was opened and reviewed on treatment teams.
--- NOTE | 2025-04-09 11:41 | HO.PHP ---
Patient requested a letter but she didn't complete the Program.
== END 2025-04-08 23:59 | disposition home or self-care (01) ==
LOC: HO.PHPA 08:15
PROVIDERS: Visit Provider Psychiatry & Neurology Psychiatry
DX: F31.9 Bipolar disorder, unspecified (principal); F90.9 Attention-deficit hyperactivity disorder, unspecified type; F41.1 Generalized anxiety disorder; Z86.011 Personal history of benign neoplasm of the brain
CPT/HCPCS: 90791; 90853

== ENCOUNTER 2025-06-16 04:41 | Emergency (ER) | payer OTHER, SELFPAY ==
--- NOTE | ~2025-06-16 | CT_ITS ---
EXAMINATION: CT HEAD WITHOUT CONTRAST CLINICAL INFORMATION: headache worse at night x 1 month COMPARISON: November 18, 2023. TECHNIQUE: Contiguous axial imaging was performed from the skull base to vertex without intravenous administration of contrast. This CT examination was performed using dose optimization techniques as appropriate, variously including the following: *Automated exposure control *Adjustment of mA and/or kV according to patient size (this includes techniques or standardized protocols for targeted exams where dose is matched to indication/reason for exam; i.e. extremities or head) *Use of iterative reconstruction technique DLP: 638 mGy-cm FINDINGS: No acute intracranial hemorrhage, mass effect, midline shift, hydrocephalus or herniation. Poor monge-white matter differentiation which could be artifactual. Cerebral sulci effacement which could be artifactual. Posterior cranial fossa contents demonstrated dystrophic calcifications in the right tentorium. Sellar/suprasellar region demonstrated no gross masses. Petrous clinoid calcifications No air-fluid levels in the paranasal sinuses. Tympanic cavities and mastoid air cells are aerated. No masses or fluid collections in the intraconal or extraconal compartments of the orbits. Metallic piercing in the superior lateral preseptal soft tissues of the right orbit. CT/CT head/brain wo IV con IMPRESSION: No acute intracranial hemorrhage. There is likely artifactual cerebral sulci and monge-white matter effacement. Electronically signed by: Darius Pat MD 06/16/2025 08:01 AM EDT
[2025-06-16 04:47] VITALS: BP 144/73; PULSE 74; RESP 16; TEMP 36.8; O2SAT 100; BMI 39.2
--- OUTSIDE RECORDS SUMMARY | 2025-06-16 05:19 | XMS_ITS | Encounter Summary ---
Author Organization [facility] Address [address] [place] [address] Phone Care Team Providers Care Senior Systems Developer Name Role Phone Unavailable Primary Care Provider Unavailabl e Encounter Details Date Type Department Care Team (Late st Contact Info) Description 10/23/2011 Documentation [facility] [place] [address] [place] [address] Family Medicine, Physician [address], [place] [phone] Social History Tobacco Use Types Packs/Day Years [...]
[2025-06-16 05:39] VITALS: BP 98/57; PULSE 68
--- NOTE | 2025-06-16 07:31 | ED.GENADULT ---
HPI - General Adult General Chief complaint: General Medical Stated complaint: multi complaints Time Seen by Provider: 06/16/25 06:52 Source: patient and old records reviewed Mode of arrival: ambulatory Limitations: no limitations History of Present Illness ED Provider: ABRAHAM OMER narrative: 30 yo female with PMH of anxiety, ADHD, prior meningioma s/p surgery at age 16 who notes one months of nighttime headaches worse after she uses her computer. She has no fevers, head trauma, numbness, weakness, vision changes. She has not had an eye exam recently. She has old bar from prior piercing posterior neck that was left in but no skin rash or swelling she wasn't sure if that could cause her headaches. Headache is on the left side of the head. MD complaint: headaches Onset (ago): month(s) (1) Location: head Radiation: non-radiation Severity: moderate Quality: aching Pain Consistency: intermittent Relieving factors: none Exacerbating factors: other Associated symptoms: denies other symptoms Treatments prior to arrival: none Related Data Home Medications ?Medication ?Instructions ?Recorded ?Confirmed cariprazine 6 mg capsule (Vraylar) 1 cap PO QAM 01/27/22 04/02/25 cariprazine 1.5 mg capsule 1 cap PO DAILY 02/11/22 04/02/25 (Vraylar) lorazepam 0.5 mg tablet 0.5 mg PO DAILY PRN Anxiety 01/21/23 04/02/25 bupropion HCl 150 mg 24 hr tablet, 150 mg PO DAILY 10/03/23 04/02/25 extended release buspirone 5 mg tablet 5 mg PO TID anxiety 04/02/25 04/02/25 diphenhydramine HCl 25 mg capsule 25 mg PO TID PRN Allergic Reaction 04/02/25 04/02/25 (Banophen) primidone 50 mg tablet 50 mg PO BID 04/02/25 04/02/25 valproic acid (as sodium salt) 250 1,000 mg PO BID 04/02/25 04/02/25 mg/5 mL oral solution Previous Rx's ?Medication ?Instructions ?Recorded epinephrine 0.3 mg/0.3 mL 0.3 mg (0.3 mL) IM Q10M PRN 09/16/23 injection, auto-injector anaphylaxis #2 ea oxcarbazepine 300 mg tablet 300 mg PO BID as directed #30 tabs 04/02/25 cyclobenzaprine 10 mg tablet 10 mg PO DAILY PRN muscle spasm 06/16/25 #20 tabs ibuprofen 600 mg tablet 600 mg PO Q6H PRN pain #30 tabs 06/16/25 Allergies Allergy/AdvReac Type Severity Reaction Status Date / Time lithium (LITHIUM) Allergy Intermediate HIVES Verified 06/16/25 04:49 nicotine (From NICODERM JAIME) Allergy Unknown HIVES FROM Verified 06/16/25 04:49 THE PATCH onion Allergy Throat Verified 06/16/25 04:49 swells Review of Systems Review of Systems: Constitutional : No Fever, No Chills, No Fatigue ENT/Mouth : No sore throat, No Rhinorrhea Eyes: No Eye Pain, No Swelling, No Redness Cardiovascular : No Chest Pain, No SOB, No Dyspnea on Exertion Respiratory : No Cough, No Sputum Gastrointestinal : No Nausea, No Vomiting, No Diarrhea, No abdominal Pain Genitourinary : No Dysuria, No Urinary Frequency, No Hematuria, Musculoskeletal : No joint pain, No Myalgias, No Joint Swelling Skin : No Skin Lesions, No rash Neuro : No Weakness, No Numbness, No Dizziness, positive Headache All other systems reviewed and are negative [facility] Past Medical History Attestation statement: The following information was validated with the patient. Source: old records reviewed Medical History Tremor of both hands Mental health disorder Fibromyalgia Anxiety Depression Bipolar 1 disorder Surgical History H/O brain surgery Social History Social History Household Members: None Housing: Apartment Alcohol intake: current Alcohol intake frequency: holidays/special occasions only Alcohol type: wine Patient Tobacco Use Status: Former Tobacco user Tobacco use type: Cigarette Cigarette Packs Per Day: 2 Cigarettes Per Day: 40 Years Smoked: 15 Substance Use Type: Marijuana Advance Directives: Yes Advance Directives Information Provided: Yes Advance Directives on File: No Do you have a plan to hurt others: No Plan Physical Exam ED Vital Signs: Vital Signs - 24 hr 06/16/25 04:47 06/16/25 05:39 Temperature 98.2 F Pulse Rate 74 68 Respiratory Rate 16 Blood Pressure 144/73 H 98/57 L Pulse Oximetry 100 Oxygen Delivery Method Room Air BMI result Body Mass Index 39.2 Appearance: Alert. Oriented X3. No acute distress. Eyes: Pupils equal, round and reactive to light. ENT: Pharynx normal. Neck: Normal inspection. Neck supple. no meningeal signs, no signs of infection from piercing CVS: Normal heart rate and rhythm. Pulses normal. Respiratory: No respiratory distress. Breath sounds normal. Abdomen: Soft and nontender. Skin: Skin warm and dry. Normal skin color. Extremities: No lower extremity edema. Neuro: Oriented X 3. No motor deficit. No sensory deficit. CN2-12 intact Medical Decision Making Medical Decision Making MDM Narrative: 30 yo female with PMH of anxiety, ADHD, prior meningioma s/p surgery at age 16 now here with c/o headaches x 1 month she is neuro intact and has no fevers, I do not suspect that her subq site of piercing that has no swelling or signs of infection would cause her headaches. This seems more related to vision and using her computer. At this time will obtain CT head and look for mass and instructed her to get an eye exam. Differential Diagnosis Differential Diagnoses: The differential diagnosis associated with the presentation includes tension headaches, eye strain, mass Admission/Observation Consideration of admission/observation: Escalation of care including admission/observation considered negative work up stable for DC Independent Interpretation I performed an independent interpretation of an: CT Scan (no mass) Radiology Impression Discussion of test interpretation with radiology: I have reviewed the radiologist's reading. External Record Review External record reviewed: Outpatient record Prescription Management I considered prescription management with: Other Discharge Plan Discharge Clinical Impression: Acute tension headache Patient Disposition: Home, Self-Care Instructions: Acute Headache (ED) Additional Instructions: you need to get an eye exam. try to limit computer time at night if possible CT head there are no acute findings return for any worsening symptoms or concerns FINDINGS: No acute intracranial hemorrhage, mass effect, midline shift, hydrocephalus or herniation. Poor monge-white matter differentiation which could be artifactual. Cerebral sulci effacement which could be artifactual. Posterior cranial fossa contents demonstrated dystrophic calcifications in the right tentorium. Sellar/suprasellar region demonstrated no gross masses. Petrous clinoid calcifications No air-fluid levels in the paranasal sinuses. Tympanic cavities and mastoid air cells are aerated. No masses or fluid collections in the intraconal or extraconal compartments of the orbits. Metallic piercing in the superior lateral preseptal soft tissues of the right orbit. Prescriptions: New cyclobenzaprine 10 mg tablet 10 mg PO DAILY PRN (Reason: muscle spasm) Qty: 20 0RF ibuprofen 600 mg tablet 600 mg PO Q6H PRN (Reason: pain) Qty: 30 0RF No Action Vraylar 1.5 mg capsule 1 cap PO DAILY Vraylar 6 mg capsule 1 cap PO QAM lorazepam 0.5 mg Tablet 0.5 mg PO DAILY PRN (Reason: Anxiety) epinephrine 0.3 mg/0.3 mL auto-injector 0.3 mg IM Q10M PRN (Reason: anaphylaxis) Qty: 2 0RF Rx Instructions: for 2 doses bupropion HCl 150 mg tablet extended release 24 hr 150 mg PO DAILY valproic acid (as sodium salt) [Depakene] 250 mg/5 mL Solution 1,000 mg PO BID Patient Comments: pt reports she stopped taking this medication 1 month ago primidone 50 mg Tablet 50 mg PO BID diphenhydramine HCl [Banophen] 25 mg Capsule 25 mg PO TID MDD up to 3 doses PRN (Reason: Allergic Reaction) buspirone 5 mg Tablet 5 mg PO TID oxcarbazepine 300 mg tablet 300 mg PO BID Qty: 30 0RF Print Language: Wolof
[2025-06-16 08:17] VITALS: BP 104/64; PULSE 68; RESP 18; TEMP 36.8; O2SAT 96
== END 2025-06-16 08:18 | disposition home or self-care (01) ==
PROVIDERS: Emergency Provider Emergency Medicine; PCP Student in an Organized Health Care Education/Training Program
DX: G44.209 Tension-type headache, unspecified, not intractable (principal); Z79.899 Other long term (current) drug therapy; Z87.891 Personal history of nicotine dependence
CPT/HCPCS: 70450; 99284

== ENCOUNTER → 2025-06-16 07:16 | Outpatient (BNV) | payer OTHER, SELFPAY | PROVIDERS: Emergency Provider Emergency Medicine; PCP Student in an Organized Health Care Education/Training Program; Visit Provider Radiology Diagnostic Radiology | DX: R51.9 Headache, unspecified (principal) | CPT/HCPCS: 70450 ==

== ENCOUNTER 2025-10-19 09:15 | Outpatient (RCR) | payer OTHER, SELFPAY ==
[2025-10-18 09:51] VITALS: BP 112/88; PULSE 86; RESP 16; TEMP 37.7
[2025-10-18 09:52] VITALS: BMI 41.6
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
--- NOTE | 2025-10-19 09:34 | HO.PHP ---
[facility] staff member went to go meet with Consuelo due to her not being in groups. When PHP staff member was walking down the hallway, Consuelo was at the door. When PHP staff member opened the door Consuelo said she wanted to go home and started crying. PHP staff member asked Consuelo why she wanted to go home. Consuelo said the groups are too large and she can't do this. [facility] staff member encouraged her to try to implement her coping skills and attempt going to the group but she did not want to try. Consuelo said that she takes everything home with her that others share and doesn't find it helpful. [facility] staff member asked her if she will be able to do this program, she said she didn't know and just kept repeating that she wanted to leave. [facility] staff member assessed for safety, in which Consuelo reported no safety concerns. Consuelo left for the day and is uncertain to if she will be here tomorrow. Consuelo was encouraged to call if she won't be here tomorrow.
== END 2025-10-19 23:59 | disposition home or self-care (01) ==
LOC: HO.PHPA 09:15
PROVIDERS: Visit Provider Psychiatry & Neurology Psychiatry
DX: F31.9 Bipolar disorder, unspecified (principal); F90.9 Attention-deficit hyperactivity disorder, unspecified type; F41.1 Generalized anxiety disorder; Z79.899 Other long term (current) drug therapy; Z86.011 Personal history of benign neoplasm of the brain
CPT/HCPCS: 90853

== ENCOUNTER → 2025-10-19 09:15 | Outpatient (BNV) | payer OTHER, SELFPAY | PROVIDERS: Visit Provider Psychiatry & Neurology Psychiatry | DX: F31.9 Bipolar disorder, unspecified (principal); F90.9 Attention-deficit hyperactivity disorder, unspecified type; F41.1 Generalized anxiety disorder; Z86.011 Personal history of benign neoplasm of the brain | CPT/HCPCS: 90792 ==